=== PATIENT | male | born 1945 | race Caucasian/White ===

== ENCOUNTER 2018-06-22 00:53 | Inpatient (IN) ==
[2018-06-22] MEDS ORDERED: dilTIAZem Inj 125 MG in Sodium Chlor 0.9% Inj 100 ML IV.CONT PRN (01:08)
[2018-06-22 01:33] LABS: Baso % (Auto) 0.3 % (0.0-2.0); Eos % (Auto) 0.6 % (0.0-4.0); Hematocrit 36.5 % (39.0-51.0); Hemoglobin 12.4 gm/dL (13.0-17.0); Lymph # (Auto) 1.2 th/mm3 (1.0-4.8); Lymph % (Auto) 18.7 % (9.0-44.0); Mean Corpuscular HGB Conc 33.9 % (32.0-36.0); Mean Corpuscular Hemoglobin 29.1 pg (27.0-34.0); Mean Platelet Volume 7.7 fL (7.0-11.0); Mono # (Auto) 0.3 th/mm3 (0.0-0.9); Mono % (Auto) 4.6 % (0.0-8.0); Neut # (Auto) 4.7 th/mm3 (1.8-7.7); Neut % (Auto) 75.8 % (16.0-70.0); Platelet Count 157 th/mm3 (150-450); Red Blood Count 4.25 mil/mm3 (4.50-5.90); Red Cell Distribution Width 17.7 % (11.6-17.2); White Blood Count 6.2 th/mm3 (4.0-11.0)
[2018-06-22 02:12] LABS: Alanine Aminotransferase 41 U/L (12-78); Albumin 3.3 g/dL (3.4-5.0); Alkaline Phosphatase 95 U/L (45-117); Anion Gap 8 meq/L (5-15); Aspartate Aminotransferase 20 U/L (15-37); Blood Urea Nitrogen 18 mg/dL (7-18); Calcium 8.5 mg/dL (8.5-10.1); Carbon Dioxide 32.2 meq/L (21.0-32.0); Chloride 103 meq/L (98-107); Glomerular Filtration Rate Greater Than 89 mL/min (>89); Glucose,Random 158 mg/dL (74-106); Potassium 3.7 meq/L (3.5-5.1); Sodium 143 meq/L (136-145); Troponin I 0.02 ng/mL (0.02-0.05)
[2018-06-22 02:13] LABS: Creatine Kinase 36 U/L (39-308)
--- NOTE | 2018-06-22 02:51 | XR ---
EXAM DATE: 06/22/2018 2:43 AM EST AGE/SEX: 72 years / Male INDICATIONS: Short of breath. CLINICAL DATA: This is the patient's initial encounter. Patient reports that signs and symptoms have been present for 1 day and indicates a pain score of Nonresponsive. MEDICAL/SURGICAL HISTORY: Non-responsive. Non-responsive. COMPARISON: No prior exams available for comparison. FINDINGS: I don't have any priors. There is bilateral pleural and parenchymal scarring. There is blunting of neftali th costophrenic angles that I believe is primarily related to scarring. Small pleural effusions are n ot entirely excludable, especially on the right. No large effusions. No acute infiltrate demonstrated . No pneumothorax. Heart size within normal limits. CONCLUSION: Chronic appearing scarring and parenchymal interstitial changes. No definite acute process. Electronically signed by: Richard Keith MD Board Certified Radiologist 06/22/2018 2:50 AM EST
[2018-06-22] MEDS ORDERED: Enoxaparin Inj 80 MG/0.8 ML Syringe SQ SCH (05:00)
[2018-06-22] MEDS ORDERED: Dextrose 50% in Water 50 ML Vial IV.PUSH PRN (05:03)
[2018-06-22 05:33] LABS: Magnesium 1.9 mg/dL (1.5-2.5)
--- NOTE | 2018-06-22 05:54 | ED ---
HPI General Chief Complaint: Shortness of Breath/Dyspnea Stated Complaint: Chest pain Evac Time Seen by Provider: 06/22/18 01:05 History of Present Illness Patient is a 72-year-old male presents to the emergency depart with shortness of breath via EVAC. Patient provides very little history as he is very short of breath and in able to speak in sentences more than 1 or 2 words at a time. He is found to be in atrial fibrillation on arrival. Related Data Home Medications Medication Instructions Recorded Confirmed Lactobacillus acidophilus 1,000 mmu cells PO DAILY 06/22/18 06/22/18 aspirin [Aspir-81] 81 mg PO DAILY 06/22/18 06/22/18 atorvastatin 20 mg PO QPM 06/22/18 06/22/18 benzonatate 100 mg PO TID 06/22/18 06/22/18 fluticasone-vilanterol [Breo 1 inh INHALATION DAILY 06/22/18 06/22/18 Ellipta] ipratropium-albuterol 3 ml INHALATION Q4HR PRN 06/22/18 06/22/18 levofloxacin 750 mg PO DAILY 06/22/18 06/22/18 lorazepam [Ativan] 1 mg PO BID 06/22/18 06/22/18 metformin 500 mg PO DAILY 06/22/18 06/22/18 montelukast 10 mg PO QPM 06/22/18 06/22/18 morphine 10 mg PO Q4HR PRN 06/22/18 06/22/18 omega-3 acid ethyl esters [Lovaza] 2 cap PO BID 06/22/18 06/22/18 prednisone 10 mg PO DAILY 06/22/18 06/22/18 quetiapine [Seroquel] 300 mg PO HS 06/22/18 06/22/18 umeclidinium [Incruse Ellipta] 1 inh INHALATION DAILY 06/22/18 06/22/18 Allergies Allergy/AdvReac Type Severity Reaction Status Date / Time No Known Allergies Allergy Verified 06/22/18 01:08 Review of Systems ROS: all other systems reviewed are negative [facility] Medical History Medical History Anxiety (Acute) COPD (chronic obstructive pulmonary disease) (Acute) Social History Social History Substance History: No History of Abuse Second Hand Smoke Exposure: No Smoking Status: Former smoker Tobacco Type: Cigarettes How Often Do You Have a Drink Containing Alcohol: Never Recent Travel in [facility] within the Last 8 Weeks: No Recent Out of Country Travel within the Last 8 Weeks: No Immunization History Tetanus Immunization: Unsure Exam Narrative Exam Narrative: GENERAL: 72-year-old male moderate to severe distress secondary to shortness of breath. SKIN: Focused skin assessment warm/dry. HEAD: Atraumatic. Normocephalic. EYES: Pupils equal and round. No scleral icterus. No injection or drainage. ENT: No nasal bleeding or discharge. Mucous membranes pink and moist. NECK: Trachea midline. No JVD. CARDIOVASCULAR: Rapid irregular heart rate. No murmur appreciated. RESPIRATORY: No accessory muscle use. Clear to auscultation. Breath sounds equal bilaterally. GASTROINTESTINAL: Abdomen soft, non-tender, nondistended. Hepatic and splenic margins not palpable. MUSCULOSKELETAL: No obvious deformities. No clubbing. No cyanosis. No edema. Course Initial Documented Vital Signs Temperature 97.8 F 06/22/18 00:58 Pulse Rate 137 H 06/22/18 00:58 Respiratory Rate 34 H 06/22/18 00:58 Blood Pressure 144/63 H 06/22/18 00:58 Pulse Oximetry 97 06/22/18 00:58 Last Documented Vital Signs Temperature 97.8 F 06/22/18 00:58 Pulse Rate 104 H 06/22/18 06:21 Respiratory Rate 20 06/22/18 06:21 Blood Pressure 105/59 L 06/22/18 06:21 Pulse Oximetry 98 06/22/18 06:21 Medical Decision Making MDM Narrative Medical decision making narrative: Patient was seen and evaluated in the emergency department. He was given above dose of Cardizem and then placed on a drip. His heart rate is improved and bouncing between 90 and 110. His shortness of breath has completely resolved. Patient is admitted for further evaluation and treatment. Medical Screen Exam Complete: Yes Emergency Medical Condition: Yes Lab Data Result diagrams: 06/22/18 01:26 06/22/18 01:26 Lab Results 06/22/18 06/22/18 06/22/18 Range/Units 01:26 01:26 01:26 WBC 6.2 (4.0-11.0) th/mm3 RBC 4.25 L (4.50-5.90) mil/mm3 Hgb 12.4 L (13.0-17.0) gm/dL Hct 36.5 L (39.0-51.0) % MCV 86.0 (80.0-100.0) fL MCH 29.1 (27.0-34.0) pg MCHC 33.9 (32.0-36.0) % RDW 17.7 H (11.6-17.2) % Plt Count 157 (150-450) th/mm3 MPV 7.7 (7.0-11.0) fL Neut % (Auto) 75.8 H (16.0-70.0) % Lymph % (Auto) 18.7 (9.0-44.0) % [place] % (Auto) 4.6 (0.0-8.0) % Eos % (Auto) 0.6 (0.0-4.0) % Baso % (Auto) 0.3 (0.0-2.0) % Neut # (Auto) 4.7 (1.8-7.7) th/mm3 Lymph # (Auto) 1.2 (1.0-4.8) th/mm3 [place] # (Auto) 0.3 (0.0-0.9) th/mm3 Eos # (Auto) 0.0 (0.0-0.4) th/mm3 Baso # (Auto) 0.0 (0.0-0.2) th/mm3 WBC Differential . Differential Comment Auto diff final Sodium 143 (136-145) meq/L Potassium 3.7 (3.5-5.1) meq/L Chloride 103 (98-107) meq/L Carbon Dioxide 32.2 H (21.0-32.0) meq/L Anion Gap 8 (5-15) meq/L BUN 18 (7-18) mg/dL Creatinine 0.79 (0.60-1.30) mg/dL Estimated GFR Greater than 89 (>89) mL/min Random Glucose 158 H (74-106) mg/dL Calcium 8.5 (8.5-10.1) mg/dL Magnesium 1.9 (1.5-2.5) mg/dL Total Bilirubin 0.7 (0.2-1.0) mg/dL AST 20 (15-37) U/L ALT 41 (12-78) U/L Alkaline Phosphatase 95 (45-117) U/L Total Creatine Kinase 36 L (39-308) U/L Troponin I 0.02 (0.02-0.05) ng/mL B-Natriuretic Peptide 59 (0-100) pg/mL Total Protein 7.0 (6.4-8.2) g/dL Albumin 3.3 L (3.4-5.0) g/dL 06/22/18 Range/Units 01:26 WBC (4.0-11.0) th/mm3 RBC (4.50-5.90) mil/mm3 Hgb (13.0-17.0) gm/dL Hct (39.0-51.0) % MCV (80.0-100.0) fL MCH (27.0-34.0) pg MCHC (32.0-36.0) % RDW (11.6-17.2) % Plt Count (150-450) th/mm3 MPV (7.0-11.0) fL Neut % (Auto) (16.0-70.0) % Lymph % (Auto) (9.0-44.0) % [place] % (Auto) (0.0-8.0) % Eos % (Auto) (0.0-4.0) % Baso % (Auto) (0.0-2.0) % Neut # (Auto) (1.8-7.7) th/mm3 Lymph # (Auto) (1.0-4.8) th/mm3 [place] # (Auto) (0.0-0.9) th/mm3 Eos # (Auto) (0.0-0.4) th/mm3 Baso # (Auto) (0.0-0.2) th/mm3 WBC Differential Differential Comment Sodium (136-145) meq/L Potassium (3.5-5.1) meq/L Chloride (98-107) meq/L Carbon Dioxide (21.0-32.0) meq/L Anion Gap (5-15) meq/L BUN (7-18) mg/dL Creatinine (0.60-1.30) mg/dL Estimated GFR (>89) mL/min Random Glucose (74-106) mg/dL Calcium (8.5-10.1) mg/dL Magnesium Cancelled (1.5-2.5) mg/dL Total Bilirubin (0.2-1.0) mg/dL AST (15-37) U/L ALT (12-78) U/L Alkaline Phosphatase (45-117) U/L Total Creatine Kinase (39-308) U/L Troponin I (0.02-0.05) ng/mL B-Natriuretic Peptide (0-100) pg/mL Total Protein (6.4-8.2) g/dL Albumin (3.4-5.0) g/dL Imaging Data Radiologist's impression: Chest X-Ray 06/22/18 01:16 CONCLUSION: Chronic appearing scarring and parenchymal interstitial changes. No definite acute process. Discharge Plan Discharge Disposition Patient Disposition: ED Admit(ED Internal Use Only) Discharge Condition Condition: Stable Discharge Order Discharge Orders: ED Use Only Admit Order (Routine); Ordered 06/22/18 Ordered By: Kristie Randall Discharge Details Diagnosis: Atrial fibrillation Physicians Team ED Provider: Kristie Randall Primary Care Provider: UNKNOWN, Attending Provider: Ashvin Gutierrez Other Providers: Jimbo Hill Status ED Status: Left Department Discharge Information Discharge Date/Time: 06/22/18 06:50
--- NOTE | 2018-06-22 10:00 | MB ---
cc: Jimbo Hill MD DATE: 06/22/2018 REASON FOR CONSULTATION: Atrial fibrillation. HISTORY OF PRESENT ILLNESS: The patient is a 72-year-old white male with a history of diabetes, hyperlipidemia, COPD, who presented to the hospital with a 2-day history of increasing shortness of breath. He was found to be tachycardic. The patient denies palpitations, syncope, near syncope, although he has felt moderately lightheaded intermittently, particularly upon standing. He denies chest pain, pedal edema, paroxysmal nocturnal dyspnea. PAST MEDICAL HISTORY: 1. COPD. 2. Diabetes. 3. Hyperlipidemia. CARDIAC MEDICATIONS AT HOME: 1. Aspirin 81 mg daily. 2. Atorvastatin 20 mg at bedtime. ALLERGIES: NO KNOWN DRUG ALLERGIES. FAMILY HISTORY: Noncontributory. SOCIAL HISTORY: The patient is a former smoker. He denies alcohol abuse. REVIEW OF SYSTEMS: As in the history of present illness, otherwise negative or noncontributory. He also denies headache, abdominal pain, melena, dyspepsia, bright red blood per rectum. PHYSICAL EXAMINATION: VITAL SIGNS: Blood pressure 105/60 with a pulse of 104, respirations 20. GENERAL: He is a well-developed, thin white male, in no acute distress. NECK: Jugular venous pressure is normal. Carotid pulses are 2+ bilaterally and without bruits. CHEST: Reveals diminished breath sounds diffusely. CARDIAC: He has a mildly tachycardic, irregular rhythm without S3 or murmur. ABDOMEN: He has a soft, nontender abdomen. Bowel sounds are present. There is no definite hepatosplenomegaly. EXTREMITIES: Reveals no clubbing, cyanosis or edema. LABORATORY DATA: Includes potassium 3.7, BUN 18, creatinine 0.79. CK 36. Troponin 0.02. WBC 6.2, hemoglobin 12.4, platelets 157. Chest x-ray shows no acute disease. EKG shows possible multifocal atrial tachycardia, right bundle branch block. IMPRESSION: A 72-year-old white male with a history of COPD, diabetes, hyperlipidemia, admitted with increased shortness of breath. I have been asked to see the patient for atrial fibrillation. His EKG and current monitor are more suggestive of a multifocal atrial tachycardia, which could be precipitated by his underlying lung disease. His heart rates are currently only slightly to mildly elevated. There is no evidence for acute coronary syndrome or congestive heart failure. Echocardiogram is pending. RECOMMENDATIONS: 1. Oral Cardizem. 2. Continue his usual daily aspirin. 3. Check a 2-D echo to assess his left ventricular function. 4. Continue pulmonary therapy. 5. Recheck an EKG this morning. MD PETTY Lau/carina , 09:45 AM , 09:53 AM MTDPriyanka
[2018-06-22] MEDS: LORazepam 1 MG Tablet PO SCH ×2 (10:56→22:00)
[2018-06-22] MEDS: Insulin NovoLOG Aspart Correctional Sugar Inj SQ SCH ×4 (10:57→22:00)
--- NOTE | 2018-06-22 11:52 | P.HP ---
History of Present Illness Primary Care Physician: UNKNOWN Chief Complaint: Shortness of breath History of Present Illness: 72-year-old man with past medical history of diabetes type 2, COPD and a current resident of a local [facility] facility was brought to the hospital for evaluation of worsening symptoms of shortness of breath and lightheadedness neck. While in the ED, patient was found to have sustained heart rate of over 100 for which cardiology was consulted. Patient was also started on Cardizem drip. During my exam, patient denies any chest pain and complaints of cough production. Denies any GI bleed. Inpatient Certification: I certify that the inpatient services were ordered in accordance with Medicare regulations governing the order. This includes certification that hospital inpatient services are reasonable and necessary and in the case of services not specified as inpatient-only under 42 CFR 419.22(n), that they are appropriately provided as inpatient services in accordance to with the 2-midnight benchmark under 43 CFR 412.3(e) Estimated Total Length of Stay (Days): 2 Plans for Post Hospital Care: Not yet determined Review of Systems All other systems reviewed negative except as [facility] - History History Provided By: Medical Record, Roving Teller / EMT - Medical History Medical History: Medical History (Last Updated 06/22/18 @ 01:02 by Madina Gross) Anxiety COPD (chronic obstructive pulmonary disease) - Family History Family History: Family History (Last Updated 06/22/18 @ 11:51 by Ashvin Gutierrez MD) Other CAD (coronary artery disease) - Tobacco History Second Hand Smoke Exposure: No Tobacco Use In Past 30 Days: No Smoking Status: Former smoker Tobacco Type: Cigarettes - Alcohol History How Often Do You Have a Drink Containing Alcohol: Never - Substance Use History Substance History: No History of Abuse - Travel History Recent Travel in the [place] Within the Last 8 Weeks: No Recent Travel Out of the Country Within the Last 8 Weeks: No - Immunization History Tetanus Immunization: Unsure Medications and Allergies Active Medications: Active Medications Albuterol (Duoneb Neb (Prn)) 1 ampul INH Q4HR NEB PRN PRN Reason: WHEEZING Aspirin (Ecotrin) 81 mg PO DAILY MARCELINO Last Admin: 06/22/18 10:56 Dose: 81 mg Atorvastatin Calcium (Lipitor) 20 mg PO QPM MARCELINO Dextrose (D50w Vial) 50 ml IV.PUSH UNSCH PRN PRN Reason: PER HYPOGLYCEMIA PROTOCOL Diltiazem HCl (Cardizem) 30 mg PO QID MARCELINO Enoxaparin Sodium (Lovenox Inj) 70 mg SQ Q12H MARCELINO Last Admin: 06/22/18 05:38 Dose: 70 mg Glucagon (Glucagon Inj) 1 mg OTHER PRN PRN PRN Reason: for Hypoglycemia Protocol Insulin Aspart (Novolog Insulin Correctional Sugar Inj) 0 unit SQ ACHS AND 3AM MARCELINO; Protocol Last Admin: 06/22/18 10:57 Dose: Not Given Lorazepam (Ativan) 1 mg PO BID MARCELINO Last Admin: 06/22/18 10:56 Dose: 1 mg Sodium Chloride (Ns Flush) 2 ml IV.FLUSH PRN PRN PRN Reason: FLUSH AFTER USING IV ACCESS Sodium Chloride (Ns Flush) 2 ml IV.FLUSH BID MARCELINO Last Admin: 06/22/18 10:56 Dose: 2 ml Allergies Allergy/AdvReac Type Severity Reaction Status Date / Time No Known Allergies Allergy Verified 06/22/18 01:08 Home Medications Medication Instructions Recorded Confirmed Type Lactobacillus acidophilus 1,000 mmu cells PO DAILY 06/22/18 06/22/18 History aspirin [Aspir-81] 81 mg PO DAILY 06/22/18 06/22/18 History atorvastatin 20 mg PO QPM 06/22/18 06/22/18 History benzonatate 100 mg PO TID 06/22/18 06/22/18 History fluticasone-vilanterol [Breo 1 inh INHALATION DAILY 06/22/18 06/22/18 History Ellipta] ipratropium-albuterol 3 ml INHALATION Q4HR PRN 06/22/18 06/22/18 History levofloxacin 750 mg PO DAILY 06/22/18 06/22/18 History lorazepam [Ativan] 1 mg PO BID 06/22/18 06/22/18 History metformin 500 mg PO DAILY 06/22/18 06/22/18 History montelukast 10 mg PO QPM 06/22/18 06/22/18 History morphine 10 mg PO Q4HR PRN 06/22/18 06/22/18 History omega-3 acid ethyl esters [Lovaza] 2 cap PO BID 06/22/18 06/22/18 History prednisone 10 mg PO DAILY 06/22/18 06/22/18 History quetiapine [Seroquel] 300 mg PO HS 06/22/18 06/22/18 History umeclidinium [Incruse Ellipta] 1 inh INHALATION DAILY 06/22/18 06/22/18 History Exam Vital signs: Vital Signs 06/22/18 00:58 06/22/18 01:37 06/22/18 01:54 Temperature 97.8 F Pulse Rate 137 H 110 H 119 H Respiratory Rate 34 H 18 15 Blood Pressure 144/63 H 118/63 107/54 L Pulse Oximetry 97 99 98 06/22/18 03:00 06/22/18 04:00 06/22/18 05:04 Temperature Pulse Rate 100 H 103 H 100 H Respiratory Rate 20 20 20 Blood Pressure 108/54 L 114/56 L 101/64 Pulse Oximetry 98 97 92 L 06/22/18 06:21 Temperature Pulse Rate 104 H Respiratory Rate 20 Blood Pressure 105/59 L Pulse Oximetry 98 Intake & Output 06/21/18 06/22/18 06/22/18 18:59 06:59 18:59 Weight 72.575 kg Narrative: GENERAL: NAD SKIN: Warm and dry. HEAD: Atraumatic. Normocephalic. EYES: Pupils equal and round. No scleral icterus. No injection or drainage. ENT: No nasal bleeding or discharge. Mucous membranes pink and moist. NECK: Trachea midline. No JVD. CARDIOVASCULAR: Regular rate and rhythm. RESPIRATORY: No accessory muscle use. Decreased air entry bilaterally GASTROINTESTINAL: Abdomen soft, non-tender, nondistended. Hepatic and splenic margins not palpable. MUSCULOSKELETAL: Extremities without clubbing, cyanosis, or edema. No obvious deformities. NEUROLOGICAL: Awake and alert. No obvious cranial nerve deficits. Motor grossly within normal limits. Five out of 5 muscle strength in the arms and legs. Normal speech. PSYCHIATRIC: Appropriate mood and affect; insight and judgment normal. Results - Labs CBC & Chem 7: 06/22/18 01:26 06/22/18 01:26 Labs: Laboratory Results - last 24 hr 06/22/18 06/22/18 06/22/18 01:26 01:26 01:26 WBC 6.2 RBC 4.25 L Hgb 12.4 L Hct 36.5 L MCV 86.0 MCH 29.1 MCHC 33.9 RDW 17.7 H Plt Count 157 MPV 7.7 Neut % (Auto) 75.8 H Lymph % (Auto) 18.7 [place] % (Auto) 4.6 Eos % (Auto) 0.6 Baso % (Auto) 0.3 Neut # (Auto) 4.7 Lymph # (Auto) 1.2 [place] # (Auto) 0.3 Eos # (Auto) 0.0 Baso # (Auto) 0.0 WBC Differential . Differential Comment Auto diff final Sodium 143 Potassium 3.7 Chloride 103 Carbon Dioxide 32.2 H Anion Gap 8 BUN 18 Creatinine 0.79 Estimated GFR Greater than 89 Random Glucose 158 H Calcium 8.5 Magnesium 1.9 Total Bilirubin 0.7 AST 20 ALT 41 Alkaline Phosphatase 95 Total Creatine Kinase 36 L Troponin I 0.02 B-Natriuretic Peptide 59 Total Protein 7.0 Albumin 3.3 L 06/22/18 01:26 WBC RBC Hgb Hct MCV MCH MCHC RDW Plt Count MPV Neut % (Auto) Lymph % (Auto) [place] % (Auto) Eos % (Auto) Baso % (Auto) Neut # (Auto) Lymph # (Auto) [place] # (Auto) Eos # (Auto) Baso # (Auto) WBC Differential Differential Comment Sodium Potassium Chloride Carbon Dioxide Anion Gap BUN Creatinine Estimated GFR Random Glucose Calcium Magnesium Cancelled Total Bilirubin AST ALT Alkaline Phosphatase Total Creatine Kinase Troponin I B-Natriuretic Peptide Total Protein Albumin - Imaging Impressions Chest X-Ray 06/22/18 01:16 CONCLUSION: Chronic appearing scarring and parenchymal interstitial changes. No definite acute process. Caprini VTE Risk Assessment Caprini VTE Risk Assessment: Moderate/High Risk (score >= 2) Caprini Risk Assessment Model: Point Value = 1 Point Value = 2 Point Value = 3 Point Value = 5 Age 41-60 Minor surgery BMI > 25 kg/m2 Swollen legs Varicose veins or History of unexplained or recurrent spontaneous Oral contraceptives or hormone replacement Sepsis (< 1 month) Serious lung disease, including pneumonia (< 1 month) Abnormal pulmonary function Acute myocardial infarction Congestive heart failure (< 1 month) History of inflammatory bowel disease Medical patient at bed rest Age 61-74 Arthroscopic surgery Major open surgery (> 45 min) Laparoscopic surgery (> 45 min) Malignancy Confined to bed (> 72 hours) Immobilizing plaster cast Central venous access Age >= 75 History of VTE Family history of VTE Factor V Leiden Prothrombin [id number] Lupus anticoagulant Anticardiolipin antibodies Elevated serum homocysteine Heparin-induced thrombocytopenia Other congenital or acquired thrombophilia Stroke (< 1 month) Elective arthroplasty Hip, pelvis, or leg fracture Acute spinal cord injury (< 1 month) Prophylaxis Regimen: Total Risk Factor Score Risk Level Prophylaxis Regimen 0-1 Low Early ambulation 2 Moderate Order ONE of the following: *Sequential Compression Device (SCD) *Heparin 5000 units SQ BID 3-4 Higher Order ONE of the following medications: *Heparin 5000 units SQ TID *Enoxaparin/Lovenox 40 mg SQ daily (WT < 150 kg, CrCl > 30 mL/min) *Enoxaparin/Lovenox 30 mg SQ daily (WT < 150 kg, CrCl > 10-29 mL/min) *Enoxaparin/Lovenox 30 mg SQ BID (WT < 150 kg, CrCl > 30 mL/min) AND/OR *Sequential Compression Device (SCD) 5 or more Highest Order ONE of the following medications: *Heparin 5000 units SQ TID (Preferred with Epidurals) *Enoxaparin/Lovenox 40 mg SQ daily (WT < 150 kg, CrCl > 30 mL/min) *Enoxaparin/Lovenox 30 mg SQ daily (WT < 150 kg, CrCl > 10-29 mL/min) *Enoxaparin/Lovenox 30 mg SQ BID (WT < 150 kg, CrCl > 30 mL/min) AND *Sequential Compression Device (SCD) Assessment and Plan - Plan 72-year-old man with Multifocal atrial tachycardia Currently on p.o. Cardizem, Cardizem drip has been discontinued Appreciate input from cardiology Check 2D echo and continue aspirin Chest x-ray noted and reviewed by me without any acute disease History of COPD Resume prednisone, Levaquin, bronchodilator, long-acting beta agonist Maintain oxygen saturation above 92% Diabetes type 2 Hold oral hyperglycemic agents Start insulin sliding scale with fingerstick blood glucose monitoring Hyperlipidemia Continue with statin DVT prophylaxis: Lovenox PT consult to treat and eval
[2018-06-22] MEDS: guaiFENesin 600 MG ER Tablet PO SCH ×2 (12:56→22:00)
[2018-06-22] MEDS: dilTIAZem 30 MG Tablet PO SCH ×3 (12:56→22:00)
[2018-06-22] MEDS: Benzonatate 100 MG Capsule PO SCH ×2 (12:56→17:46)
--- NOTE | 2018-06-22 19:38 | ECG ---
Date Performed: 06/22/2018 Time Performed: 00:59:31 PTAGE: 72 years EKG: ATRIAL FIBRILLATION WITH RAPID VENTRICULAR RESPONSE RIGHT BUNDLE BRANCH BLOCK ABNORMAL ECG NO PREVIOUS TRACING DOCTOR: Parmjit Leblanc Interpretating Date/Time 06/22/2018 19:37:31
[2018-06-22] MEDS: Budesonide-Formoterol 160/4.5 MCG 6 GM Inhaler INH SCH (22:01)
--- NOTE | 2018-06-22 22:10 | ECG ---
Date Performed: 06/22/2018 Time Performed: 17:42:12 PTAGE: 72 years EKG: Sinus arrhythmia Right bundle branch block Inferior/lateral ST-T changes may be due to myoc ardial ischemia Low QRS voltages in precordial leads Abnormal ECG PREVIOUS TRACING : 06/22/2018 00.59 Compared to previous tracing, Afib with RVR is no longer p resent DOCTOR: Parmjit Leblanc Interpretating Date/Time 06/22/2018 22:08:33
[2018-06-22 23:51] LABS: ABG Base Excess 5.5 mmol/L (-2-2); ABG PCO2 43 mmHg (38-42); ABG PO2 93 mmHG (61-120)
--- NOTE | 2018-06-22 23:51 | XR ---
EXAM DATE: 06/22/2018 11:47 PM EST AGE/SEX: 72 years / Male INDICATIONS: Patient states he has been congested for several months prior to this hospitalization. CLINICAL DATA: This is the patient's subsequent encounter. Patient reports that signs and symptoms h ave been present for 2 months and indicates a pain score of 0/10. MEDICAL/SURGICAL HISTORY: Chronic obstructive pulmonary disease. None. [place] [facility] [place]. . FINDINGS: Pleural and parenchymal scarring again noted. No acute appearing pneumonia seen. No perceptible pleur al effusion. No pneumothorax. Heart size stable, within normal limits. CONCLUSION: No definite acute process. Bilateral pleural and parenchymal scarring again seen. Electronically signed by: Richard Keith MD Board Certified Radiologist 06/22/2018 11:50 PM EST
[2018-06-23] MEDS: Insulin NovoLOG Aspart Correctional Sugar Inj SQ SCH ×5 (03:42→21:54)
[2018-06-23 05:03] LABS: Hematocrit 29.9 % (39.0-51.0); Hemoglobin 10.2 gm/dL (13.0-17.0); Mean Corpuscular HGB Conc 33.9 % (32.0-36.0); Mean Corpuscular Hemoglobin 29.3 pg (27.0-34.0); Mean Corpuscular Volume 86.3 fL (80.0-100.0); Mean Platelet Volume 7.4 fL (7.0-11.0); Platelet Count 143 th/mm3 (150-450); Red Blood Count 3.47 mil/mm3 (4.50-5.90); Red Cell Distribution Width 17.2 % (11.6-17.2); White Blood Count 6.8 th/mm3 (4.0-11.0)
[2018-06-23 05:33] LABS: Anion Gap 6 meq/L (5-15); Blood Urea Nitrogen 12 mg/dL (7-18); Carbon Dioxide 32.9 meq/L (21.0-32.0); Chloride 102 meq/L (98-107); Glomerular Filtration Rate Greater Than 89 mL/min (>89); Glucose,Random 123 mg/dL (74-106); Potassium 3.1 meq/L (3.5-5.1); Sodium 141 meq/L (136-145)
[2018-06-23] MEDS: Budesonide-Formoterol 160/4.5 MCG 6 GM Inhaler INH SCH ×2 (08:32→21:46)
[2018-06-23] MEDS: Lactobacillus Acidophilus/L. Spores Tablet PO SCH (08:32)
[2018-06-23] MEDS: Enoxaparin Inj 40 MG/0.4 ML Syringe SQ SCH (08:32)
[2018-06-23] MEDS: Benzonatate 100 MG Capsule PO SCH ×3 (08:32→17:28)
[2018-06-23] MEDS: LORazepam 1 MG Tablet PO SCH ×2 (08:32→21:46)
[2018-06-23] MEDS: dilTIAZem 30 MG Tablet PO SCH ×2 (08:33→12:34)
[2018-06-23] MEDS: guaiFENesin 600 MG ER Tablet PO SCH ×2 (08:33→21:45)
[2018-06-23] MEDS ORDERED: predniSONE 20 MG Tablet PO SCH (09:00)
[2018-06-23] MEDS: levoFLOXacin 750 MG Tablet PO SCH (11:05)
--- NOTE | 2018-06-23 12:21 | P.PN ---
Subjective Interval history: Follow-up multifocal atrial tachycardia/COPD exacerbation June 23, 2018-patient seen and examined, reports significant shortness of breath, cough production but denies any chest pain. Afebrile. Patient was given Lasix IV x1 overnight Physical Exam Vital signs: Vital Signs 06/22/18 13:00 06/22/18 14:00 06/22/18 16:00 Temperature 98.2 F Pulse Rate 96 H 92 H 108 H Respiratory Rate 20 Blood Pressure 129/87 Pulse Oximetry 100 06/22/18 17:00 06/22/18 18:00 06/22/18 19:00 Temperature Pulse Rate 108 H 108 H 88 Respiratory Rate Blood Pressure Pulse Oximetry 06/22/18 20:00 06/22/18 20:58 06/22/18 21:00 Temperature 98.8 F Pulse Rate 94 H 92 H 94 H Respiratory Rate 28 H 18 Blood Pressure 146/54 H Pulse Oximetry 98 06/22/18 22:00 06/22/18 23:00 06/23/18 00:00 Temperature 99.1 F Pulse Rate 95 H 101 H 100 H Respiratory Rate 26 H Blood Pressure 133/78 Pulse Oximetry 97 06/23/18 01:00 06/23/18 02:00 06/23/18 03:00 Temperature Pulse Rate 92 H 96 H 106 H Respiratory Rate Blood Pressure Pulse Oximetry 06/23/18 04:00 06/23/18 05:00 06/23/18 06:00 Temperature Pulse Rate 89 106 H 107 H Respiratory Rate 24 Blood Pressure 135/67 Pulse Oximetry 98 06/23/18 09:05 Temperature Pulse Rate Respiratory Rate Blood Pressure Pulse Oximetry 96 Intake & Output 06/22/18 06/23/18 06/23/18 18:59 06:59 18:59 Intake Total 480 / 480 240 / 240 Output Total 975 / 975 Balance 480 / 480 -735 / -735 Intake: Oral 480 / 480 240 / 240 Output: Urine 975 / 975 Other: # Voids 3 Narrative: GENERAL: NAD SKIN: Warm and dry. HEAD: Atraumatic. Normocephalic. EYES: Pupils equal and round. No scleral icterus. No injection or drainage. ENT: No nasal bleeding or discharge. Mucous membranes pink and moist. NECK: Trachea midline. No JVD. CARDIOVASCULAR: Regular rate and rhythm. RESPIRATORY: No accessory muscle use. Decreased air entry bilaterally. Expiratory wheezes GASTROINTESTINAL: Abdomen soft, non-tender, nondistended. Hepatic and splenic margins not palpable. MUSCULOSKELETAL: Extremities without clubbing, cyanosis, or edema. No obvious deformities. NEUROLOGICAL: Awake and alert. No obvious cranial nerve deficits. Motor grossly within normal limits. Five out of 5 muscle strength in the arms and legs. Normal speech. PSYCHIATRIC: Appropriate mood and affect; insight and judgment normal. Results - Labs CBC & Chem 7: 06/23/18 04:47 06/23/18 04:47 Laboratory Results - last 24 hr 06/22/18 06/22/18 06/22/18 13:02 17:49 21:24 WBC RBC Hgb Hct MCV MCH MCHC RDW Plt Count MPV Puncture Site Patient Temperature O2 Saturation ABG pH ABG pCO2 ABG pO2 ABG HCO3 ABG O2 Content ABG Base Excess ABG Methemoglobin Shoaib Test Hemoglobin Carboxyhemoglobin O2 Delivery Device Liter Flow Critical Value Sodium Potassium Chloride Carbon Dioxide Anion Gap BUN Creatinine Estimated GFR POC Glucose 221 H 185 H 130 H Random Glucose Calcium 06/22/18 06/23/18 06/23/18 23:34 03:13 04:47 WBC 6.8 RBC 3.47 L Hgb 10.2 L D Hct 29.9 L MCV 86.3 MCH 29.3 MCHC 33.9 RDW 17.2 Plt Count 143 L MPV 7.4 Puncture Site Left radial Patient Temperature 98.6 O2 Saturation 95 ABG pH 7.45 H ABG pCO2 43 H ABG pO2 93 ABG HCO3 29 H ABG O2 Content 13.8 ABG Base Excess 5.5 H ABG Methemoglobin 1.5 Shoaib Test Present Hemoglobin 10.3 L Carboxyhemoglobin 1.4 O2 Delivery Device Nasal cannula Liter Flow 2.00 Critical Value No Sodium Potassium Chloride Carbon Dioxide Anion Gap BUN Creatinine Estimated GFR POC Glucose 159 H Random Glucose Calcium 06/23/18 06/23/18 06/23/18 04:47 08:23 11:09 WBC RBC Hgb Hct MCV MCH MCHC RDW Plt Count MPV Puncture Site Patient Temperature O2 Saturation ABG pH ABG pCO2 ABG pO2 ABG HCO3 ABG O2 Content ABG Base Excess ABG Methemoglobin Hsoaib Test Hemoglobin Carboxyhemoglobin O2 Delivery Device Liter Flow Critical Value Sodium 141 Potassium 3.1 L Chloride 102 Carbon Dioxide 32.9 H Anion Gap 6 BUN 12 Creatinine 0.66 Estimated GFR Greater than 89 POC Glucose 112 H 210 H Random Glucose 123 H Calcium 8.0 L - Imaging Impressions Chest X-Ray 06/22/18 00:00 CONCLUSION: No definite acute process. Bilateral pleural and parenchymal scarring again seen. - Procedures None Assessment and Plan - Plan 72-year-old man with Multifocal atrial tachycardia Currently on p.o. Cardizem, aspirin Appreciate input from cardiology 2D echo pending COPD exacerbation Will start Solu-Medrol 40 mg IV q. 8-hour Continue long-acting beta agonist, Levaquin, Mucinex and DuoNeb scheduled and as needed Incentive spirometry and Acapella at bedside Continue with aggressive pulmonary toilet Maintain oxygen saturation above 92% Diabetes type 2 Hold oral hyperglycemic agents Continue insulin sliding scale with fingerstick blood glucose monitoring Hyperlipidemia Continue with statin DVT prophylaxis: Lovenox PT to treat and eval
[2018-06-23] MEDS ORDERED: Potassium Chloride 25 MEQ Effervescent Tablet PO ONE (13:00)
--- NOTE | 2018-06-23 13:04 | P.PNCA ---
Subjective Interval history: Dyspnea minimally improved. No CP, palpitations, dizziness. Slept fairly well. Medications and Allergies Active Medications: Active Medications Albuterol (Duoneb Neb (Prn)) 1 ampul INH Q2HR NEB PRN PRN Reason: WHEEZING Albuterol (Duoneb Neb (Shari)) 1 ampul NEB Q6HR WHILE AWAKE NEB [facility] Aspirin (Ecotrin) 81 mg PO DAILY [facility] Last Admin: 06/23/18 08:33 Dose: 81 mg Atorvastatin Calcium (Lipitor) 20 mg PO QPM [facility] Last Admin: 06/22/18 17:59 Dose: 20 mg Benzonatate (Tessalon Perles) 100 mg PO TID [facility] Last Admin: 06/23/18 12:35 Dose: 100 mg Budesonide/Formoterol Fumarate (Symbicort 160/4.5 Mcg Inh) 2 puff INH BID [facility] Last Admin: 06/23/18 08:32 Dose: 2 puff Dextrose (D50w Vial) 50 ml IV.PUSH UNSCH PRN PRN Reason: PER HYPOGLYCEMIA PROTOCOL Diltiazem HCl (Cardizem) 30 mg PO QID [facility] Last Admin: 06/23/18 12:34 Dose: 30 mg Enoxaparin Sodium (Lovenox Inj) 40 mg SQ DAILY [facility] Last Admin: 06/23/18 08:32 Dose: 40 mg Fluticasone/Vilanterol (Breo Ellipta 200/25 Mcg Inh) 1 puff INH DAILY [facility] Last Admin: 06/23/18 08:32 Dose: 1 puff Glucagon (Glucagon Inj) 1 mg OTHER PRN PRN PRN Reason: for Hypoglycemia Protocol Guaifenesin (Mucinex Er) 600 mg PO BID [facility] Last Admin: 06/23/18 08:33 Dose: 600 mg Insulin Aspart (Novolog Insulin Correctional Sugar Inj) 0 unit SQ ACHS AND 3AM SHARI; Protocol Last Admin: 06/23/18 08:33 Dose: Not Given Lactobacillus Acidophilus (Lactinex) 1 tab PO DAILY [facility] Last Admin: 06/23/18 08:32 Dose: 1 tab Levofloxacin (Levaquin) 750 mg PO DAILY@1100 [facility] Last Admin: 06/23/18 11:05 Dose: 750 mg Lorazepam (Ativan) 1 mg PO BID [facility] Last Admin: 06/23/18 08:32 Dose: 1 mg Methylprednisolone Sodium Succinate (Solumedrol Inj) 40 mg IV.PUSH Q8HR [facility] Prednisone (Deltasone) 10 mg PO DAILY [facility] Last Admin: 06/23/18 08:32 Dose: 10 mg Sodium Chloride (Ns Flush) 2 ml IV.FLUSH PRN PRN PRN Reason: FLUSH AFTER USING IV ACCESS Sodium Chloride (Ns Flush) 2 ml IV.FLUSH BID [facility] Last Admin: 06/23/18 08:33 Dose: 2 ml Allergies Allergy/AdvReac Type Severity Reaction Status Date / Time No Known Allergies Allergy Verified 06/22/18 01:08 Home Medications Medication Instructions Recorded Confirmed Type Lactobacillus acidophilus 1,000 mmu cells PO DAILY 06/22/18 06/22/18 History aspirin [Aspir-81] 81 mg PO DAILY 06/22/18 06/22/18 History atorvastatin 20 mg PO QPM 06/22/18 06/22/18 History benzonatate 100 mg PO TID 06/22/18 06/22/18 History fluticasone-vilanterol [Breo 1 inh INHALATION DAILY 06/22/18 06/22/18 History Ellipta] ipratropium-albuterol 3 ml INHALATION Q4HR PRN 06/22/18 06/22/18 History levofloxacin 750 mg PO DAILY 06/22/18 06/22/18 History lorazepam [Ativan] 1 mg PO BID 06/22/18 06/22/18 History metformin 500 mg PO DAILY 06/22/18 06/22/18 History montelukast 10 mg PO QPM 06/22/18 06/22/18 History morphine 10 mg PO Q4HR PRN 06/22/18 06/22/18 History omega-3 acid ethyl esters [Lovaza] 2 cap PO BID 06/22/18 06/22/18 History prednisone 10 mg PO DAILY 06/22/18 06/22/18 History quetiapine [Seroquel] 300 mg PO HS 06/22/18 06/22/18 History umeclidinium [Incruse Ellipta] 1 inh INHALATION DAILY 06/22/18 06/22/18 History Physical Exam Vital signs: Vital Signs 06/22/18 14:00 06/22/18 16:00 06/22/18 17:00 Temperature 98.2 F Pulse Rate 92 H 108 H 108 H Respiratory Rate 20 Blood Pressure 129/87 Pulse Oximetry 100 06/22/18 18:00 06/22/18 19:00 06/22/18 20:00 Temperature 98.8 F Pulse Rate 108 H 88 94 H Respiratory Rate 28 H Blood Pressure 146/54 H Pulse Oximetry 98 06/22/18 20:58 06/22/18 21:00 06/22/18 22:00 Temperature Pulse Rate 92 H 94 H 95 H Respiratory Rate 18 Blood Pressure Pulse Oximetry 06/22/18 23:00 06/23/18 00:00 06/23/18 01:00 Temperature 99.1 F Pulse Rate 101 H 100 H 92 H Respiratory Rate 26 H Blood Pressure 133/78 Pulse Oximetry 97 06/23/18 02:00 06/23/18 03:00 06/23/18 04:00 Temperature Pulse Rate 96 H 106 H 89 Respiratory Rate 24 Blood Pressure 135/67 Pulse Oximetry 98 06/23/18 05:00 06/23/18 06:00 06/23/18 07:00 Temperature Pulse Rate 106 H 107 H 104 H Respiratory Rate Blood Pressure Pulse Oximetry 06/23/18 08:00 06/23/18 09:05 06/23/18 11:00 Temperature 98.2 F Pulse Rate 100 H 118 H Respiratory Rate 24 Blood Pressure 135/65 Pulse Oximetry 98 96 06/23/18 12:00 Temperature 98.3 F Pulse Rate 96 H Respiratory Rate 22 Blood Pressure 128/57 L Pulse Oximetry 98 Intake & Output 06/22/18 06/23/18 06/23/18 18:59 06:59 18:59 Intake Total 480 / 480 240 / 240 Output Total 975 / 975 Balance 480 / 480 -735 / -735 Intake: Oral 480 / 480 240 / 240 Output: Urine 975 / 975 Other: # Voids 3 - Constitutional no acute distress - Routine Neck Exam Absent: JVD - Routine Respiratory Exam Present: decreased breath sounds, rhonchi - Routine Cardiovascular Exam Present: S1, S2, irregularly irregular. Absent: murmur, gallop - Routine Abdominal Exam Present: soft, normoactive bowel sounds. Absent: tenderness, organomegaly - Routine Extremities Exam Absent: cyanosis, clubbing, edema Results 06/23/18 04:47 06/23/18 04:47 Cardiac Enzymes 06/22/18 06/22/18 Range/Units 01:26 01:26 AST 20 (15-37) U/L Troponin I 0.02 (0.02-0.05) ng/mL B-Natriuretic Peptide 59 (0-100) pg/mL Coagulation 06/22/18 Range/Units 01:26 B-Natriuretic Peptide 59 (0-100) pg/mL CBC 06/22/18 06/23/18 Range/Units 01:26 04:47 WBC 6.2 6.8 (4.0-11.0) th/mm3 RBC 4.25 L 3.47 L (4.50-5.90) mil/mm3 Hgb 12.4 L 10.2 L D (13.0-17.0) gm/dL Hct 36.5 L 29.9 L (39.0-51.0) % Plt Count 157 143 L (150-450) th/mm3 Neut # (Auto) 4.7 (1.8-7.7) th/mm3 Lymph # (Auto) 1.2 (1.0-4.8) th/mm3 [place] # (Auto) 0.3 (0.0-0.9) th/mm3 Eos # (Auto) 0.0 (0.0-0.4) th/mm3 Baso # (Auto) 0.0 (0.0-0.2) th/mm3 Comprehensive Metabolic Panel 06/22/18 06/23/18 Range/Units 01:26 04:47 Sodium 143 141 (136-145) meq/L Potassium 3.7 3.1 L (3.5-5.1) meq/L Chloride 103 102 (98-107) meq/L Carbon Dioxide 32.2 H 32.9 H (21.0-32.0) meq/L BUN 18 12 (7-18) mg/dL Creatinine 0.79 0.66 (0.60-1.30) mg/dL Calcium 8.5 8.0 L (8.5-10.1) mg/dL AST 20 (15-37) U/L ALT 41 (12-78) U/L Alkaline Phosphatase 95 (45-117) U/L Total Protein 7.0 (6.4-8.2) g/dL Albumin 3.3 L (3.4-5.0) g/dL Intake and Output 06/22/18 06/23/18 06/23/18 22:59 06:59 14:59 Intake Total 480 / 480 240 / 240 Output Total 975 / 975 Balance 480 / 480 -735 / -735 Intake: Oral 480 / 480 240 / 240 Output: Urine 975 / 975 Other: # Voids 3 - Imaging and Cardiology Imaging: Impressions Chest X-Ray 06/22/18 00:00 CONCLUSION: No definite acute process. Bilateral pleural and parenchymal scarring again seen. Chest X-Ray 06/22/18 01:16 CONCLUSION: Chronic appearing scarring and parenchymal interstitial changes. No definite acute process. Assessment and Plan - Assessment (1) Multifocal atrial tachycardia Code(s): I47.1 - Supraventricular tachycardia Status: Acute Plan: HR's fluctuating, mostly mildly elevated. Remains in a wandering atrial pacemaker/multifocal atrial tachycardia. Echo pending. Recommend increase diltiazem dosing. - Plan Code Status: full Discussed Condition With: patient
[2018-06-23] MEDS: MethylPREDNISolone Sod Succinate Inj 40 MG/ML Vial IV.PUSH SCH ×2 (14:18→21:46)
[2018-06-23] MEDS: dilTIAZem 60 MG Tablet PO SCH ×2 (17:28→21:45)
[2018-06-24] MEDS: Insulin NovoLOG Aspart Correctional Sugar Inj SQ SCH ×5 (03:56→20:41)
[2018-06-24] MEDS: MethylPREDNISolone Sod Succinate Inj 40 MG/ML Vial IV.PUSH SCH ×3 (06:19→21:08)
[2018-06-24 08:40] LABS: Baso % (Auto) 0.1 % (0.0-2.0); Hematocrit 33.2 % (39.0-51.0); Hemoglobin 11.3 gm/dL (13.0-17.0); Lymph # (Auto) 0.6 th/mm3 (1.0-4.8); Lymph % (Auto) 10.5 % (9.0-44.0); Mean Corpuscular HGB Conc 34.1 % (32.0-36.0); Mean Corpuscular Hemoglobin 29.4 pg (27.0-34.0); Mean Corpuscular Volume 86.2 fL (80.0-100.0); Mean Platelet Volume 7.8 fL (7.0-11.0); Mono # (Auto) 0.1 th/mm3 (0.0-0.9); Mono % (Auto) 1.5 % (0.0-8.0); Neut # (Auto) 4.7 th/mm3 (1.8-7.7); Neut % (Auto) 87.9 % (16.0-70.0); Platelet Count 163 th/mm3 (150-450); Red Blood Count 3.85 mil/mm3 (4.50-5.90); Red Cell Distribution Width 17.2 % (11.6-17.2); White Blood Count 5.4 th/mm3 (4.0-11.0)
[2018-06-24] MEDS: Enoxaparin Inj 40 MG/0.4 ML Syringe SQ SCH (09:09)
[2018-06-24] MEDS: Lactobacillus Acidophilus/L. Spores Tablet PO SCH (09:09)
[2018-06-24] MEDS: guaiFENesin 600 MG ER Tablet PO SCH ×2 (09:09→20:33)
[2018-06-24] MEDS: dilTIAZem 60 MG Tablet PO SCH ×4 (09:09→20:33)
[2018-06-24] MEDS: LORazepam 1 MG Tablet PO SCH ×2 (09:09→20:33)
[2018-06-24 09:10] LABS: Alanine Aminotransferase 21 U/L (12-78); Albumin 2.9 g/dL (3.4-5.0); Anion Gap 8 meq/L (5-15); Aspartate Aminotransferase 9 U/L (15-37); Blood Urea Nitrogen 20 mg/dL (7-18); Calcium 8.8 mg/dL (8.5-10.1); Carbon Dioxide 30.3 meq/L (21.0-32.0); Chloride 103 meq/L (98-107); Glomerular Filtration Rate 82 mL/min (>89); Glucose,Random 190 mg/dL (74-106); Magnesium 1.9 mg/dL (1.5-2.5); Potassium 3.9 meq/L (3.5-5.1); Sodium 141 meq/L (136-145)
[2018-06-24] MEDS: Benzonatate 100 MG Capsule PO SCH ×3 (09:10→17:00)
[2018-06-24] MEDS: Budesonide-Formoterol 160/4.5 MCG 6 GM Inhaler INH SCH ×2 (09:10→20:39)
[2018-06-24 09:13] LABS: Alkaline Phosphatase 67 U/L (45-117); Total Protein 6.4 g/dL (6.4-8.2)
[2018-06-24] MEDS: UMECLIDINIUM INH SCH (09:14)
--- NOTE | 2018-06-24 10:22 | P.PNCA ---
Subjective Interval history: Dyspnea slowly improving. No PND, dizziness, palpitations, CP. Medications and Allergies Active Medications: Active Medications Albuterol (Duoneb Neb (Prn)) 1 ampul INH Q2HR NEB PRN PRN Reason: WHEEZING Albuterol (Duoneb Neb (Shari)) 1 ampul NEB Q6HR WHILE AWAKE NEB [facility] Last Admin: 06/24/18 07:53 Dose: 1 ampul Aspirin (Ecotrin) 81 mg PO DAILY [facility] Last Admin: 06/24/18 09:09 Dose: 81 mg Atorvastatin Calcium (Lipitor) 20 mg PO QPM [facility] Last Admin: 06/23/18 17:31 Dose: 20 mg Benzonatate (Tessalon Perles) 100 mg PO TID [facility] Last Admin: 06/24/18 09:10 Dose: 100 mg Budesonide/Formoterol Fumarate (Symbicort 160/4.5 Mcg Inh) 2 puff INH BID [facility] Last Admin: 06/24/18 09:10 Dose: 2 puff Dextrose (D50w Vial) 50 ml IV.PUSH UNSCH PRN PRN Reason: PER HYPOGLYCEMIA PROTOCOL Diltiazem HCl (Cardizem) 60 mg PO QID [facility] Last Admin: 06/24/18 09:09 Dose: 60 mg Enoxaparin Sodium (Lovenox Inj) 40 mg SQ DAILY [facility] Last Admin: 06/24/18 09:09 Dose: 40 mg Fluticasone/Vilanterol (Breo Ellipta 200/25 Mcg Inh) 1 puff INH DAILY [facility] Last Admin: 06/24/18 09:10 Dose: 1 puff Glucagon (Glucagon Inj) 1 mg OTHER PRN PRN PRN Reason: for Hypoglycemia Protocol Guaifenesin (Mucinex Er) 600 mg PO BID [facility] Last Admin: 06/24/18 09:09 Dose: 600 mg Insulin Aspart (Novolog Insulin Correctional Sugar Inj) 0 unit SQ ACHS AND 3AM SHARI; Protocol Last Admin: 06/24/18 09:09 Dose: 1 unit Lactobacillus Acidophilus (Lactinex) 1 tab PO DAILY [facility] Last Admin: 06/24/18 09:09 Dose: 1 tab Levofloxacin (Levaquin) 750 mg PO DAILY@1100 [facility] Last Admin: 06/23/18 11:05 Dose: 750 mg Lorazepam (Ativan) 1 mg PO BID [facility] Last Admin: 06/24/18 09:09 Dose: 1 mg Methylprednisolone Sodium Succinate (Solumedrol Inj) 40 mg IV.PUSH Q8HR [facility] Last Admin: 06/24/18 06:19 Dose: 40 mg Patient Own Medication:( Umeclidinium [ Incruse Ellipta] 1 Inh) 0 each INH DAILY [facility] Last Admin: 06/24/18 09:14 Dose: Not Given Prednisone (Deltasone) 10 mg PO DAILY [facility] Last Admin: 06/23/18 08:32 Dose: 10 mg Quetiapine Fumarate (Seroquel) 300 mg PO HS [facility] Last Admin: 06/23/18 21:45 Dose: 300 mg Sodium Chloride (Ns Flush) 2 ml IV.FLUSH PRN PRN PRN Reason: FLUSH AFTER USING IV ACCESS Sodium Chloride (Ns Flush) 2 ml IV.FLUSH BID [facility] Last Admin: 06/24/18 09:10 Dose: 2 ml Allergies Allergy/AdvReac Type Severity Reaction Status Date / Time No Known Allergies Allergy Verified 06/22/18 01:08 Home Medications Medication Instructions Recorded Confirmed Type Lactobacillus acidophilus 1,000 mmu cells PO DAILY 06/22/18 06/22/18 History aspirin [Aspir-81] 81 mg PO DAILY 06/22/18 06/22/18 History atorvastatin 20 mg PO QPM 06/22/18 06/22/18 History benzonatate 100 mg PO TID 06/22/18 06/22/18 History fluticasone-vilanterol [Breo 1 inh INHALATION DAILY 06/22/18 06/22/18 History Ellipta] ipratropium-albuterol 3 ml INHALATION Q4HR PRN 06/22/18 06/22/18 History levofloxacin 750 mg PO DAILY 06/22/18 06/22/18 History lorazepam [Ativan] 1 mg PO BID 06/22/18 06/22/18 History metformin 500 mg PO DAILY 06/22/18 06/22/18 History montelukast 10 mg PO QPM 06/22/18 06/22/18 History morphine 10 mg PO Q4HR PRN 06/22/18 06/22/18 History omega-3 acid ethyl esters [Lovaza] 2 cap PO BID 06/22/18 06/22/18 History prednisone 10 mg PO DAILY 06/22/18 06/22/18 History quetiapine [Seroquel] 300 mg PO HS 06/22/18 06/22/18 History umeclidinium [Incruse Ellipta] 1 inh INHALATION DAILY 06/22/18 06/22/18 History Physical Exam Vital signs: Vital Signs 06/23/18 11:00 06/23/18 12:00 06/23/18 14:00 Temperature 98.3 F Pulse Rate 118 H 96 H 86 Respiratory Rate 22 Blood Pressure 128/57 L Pulse Oximetry 98 06/23/18 15:00 06/23/18 16:00 06/23/18 17:00 Temperature 98.5 F Pulse Rate 82 88 82 Respiratory Rate 16 Blood Pressure 126/87 Pulse Oximetry 98 06/23/18 18:00 06/23/18 19:00 06/23/18 20:00 Temperature 97.8 F Pulse Rate 80 93 H 96 H Respiratory Rate 24 Blood Pressure 117/52 L Pulse Oximetry 99 06/23/18 20:27 06/23/18 21:00 06/23/18 22:00 Temperature Pulse Rate 89 62 88 Respiratory Rate 18 Blood Pressure Pulse Oximetry 99 06/23/18 23:00 06/24/18 00:00 06/24/18 01:00 Temperature Pulse Rate 93 H 86 86 Respiratory Rate 20 Blood Pressure 121/69 Pulse Oximetry 98 06/24/18 02:00 06/24/18 03:00 06/24/18 04:00 Temperature Pulse Rate 86 95 H 75 Respiratory Rate 20 Blood Pressure 116/65 Pulse Oximetry 99 06/24/18 05:00 06/24/18 06:00 06/24/18 07:00 Temperature Pulse Rate 89 82 89 Respiratory Rate Blood Pressure Pulse Oximetry 06/24/18 07:57 06/24/18 08:00 06/24/18 08:10 Temperature 98.1 F Pulse Rate 50 L 94 H 106 H Respiratory Rate 18 18 Blood Pressure 150/75 H Pulse Oximetry 97 06/24/18 09:00 Temperature Pulse Rate 100 H Respiratory Rate Blood Pressure Pulse Oximetry Intake & Output 06/23/18 06/24/18 06/24/18 18:59 06:59 18:59 Intake Total 480 / 480 240 / 240 Output Total 600 / 600 200 / 200 Balance -120 / -120 40 / 40 Intake: Oral 480 / 480 240 / 240 Output: Urine 600 / 600 200 / 200 - Constitutional no acute distress - Routine Neck Exam Absent: JVD - Routine Respiratory Exam Present: decreased breath sounds. Absent: wheezes - Routine Cardiovascular Exam Present: S1, S2, irregular rhythm. Absent: murmur, gallop - Routine Abdominal Exam Present: soft, normoactive bowel sounds. Absent: tenderness, organomegaly - Routine Extremities Exam Absent: cyanosis, clubbing, edema Results 06/24/18 08:24 06/24/18 08:24 Cardiac Enzymes 06/24/18 Range/Units 08:24 AST 9 L (15-37) U/L CBC 06/23/18 06/24/18 Range/Units 04:47 08:24 WBC 6.8 5.4 (4.0-11.0) th/mm3 RBC 3.47 L 3.85 L (4.50-5.90) mil/mm3 Hgb 10.2 L D 11.3 L (13.0-17.0) gm/dL Hct 29.9 L 33.2 L (39.0-51.0) % Plt Count 143 L 163 (150-450) th/mm3 Neut # (Auto) 4.7 (1.8-7.7) th/mm3 Lymph # (Auto) 0.6 L (1.0-4.8) th/mm3 [place] # (Auto) 0.1 (0.0-0.9) th/mm3 Eos # (Auto) 0.0 (0.0-0.4) th/mm3 Baso # (Auto) 0.0 (0.0-0.2) th/mm3 Comprehensive Metabolic Panel 06/23/18 06/24/18 Range/Units 04:47 08:24 Sodium 141 141 (136-145) meq/L Potassium 3.1 L 3.9 D (3.5-5.1) meq/L Chloride 102 103 (98-107) meq/L Carbon Dioxide 32.9 H 30.3 (21.0-32.0) meq/L BUN 12 20 H (7-18) mg/dL Creatinine 0.66 0.91 (0.60-1.30) mg/dL Calcium 8.0 L 8.8 D (8.5-10.1) mg/dL AST 9 L (15-37) U/L ALT 21 (12-78) U/L Alkaline Phosphatase 67 (45-117) U/L Total Protein 6.4 D (6.4-8.2) g/dL Albumin 2.9 L (3.4-5.0) g/dL Intake and Output 06/23/18 06/24/18 06/24/18 22:59 06:59 14:59 Intake Total 480 / 480 240 / 240 Output Total 600 / 600 200 / 200 Balance -120 / -120 40 / 40 Intake: Oral 480 / 480 240 / 240 Output: Urine 600 / 600 200 / 200 - Imaging and Cardiology Imaging: Impressions Chest X-Ray 06/22/18 00:00 CONCLUSION: No definite acute process. Bilateral pleural and parenchymal scarring again seen. Assessment and Plan - Assessment (1) Multifocal atrial tachycardia Code(s): I47.1 - Supraventricular tachycardia Status: Acute Plan: HR's fluctuating, mostly normal. Remains in a wandering atrial pacemaker/ multifocal atrial tachycardia, though occasional periods where rhythm suggestive of NSR. Echo pending. Recommend continue same. Dr. Michele to see patient PRN tomorrow. - Plan Code Status: full code Discussed Condition With: patient
[2018-06-24] MEDS: levoFLOXacin 750 MG Tablet PO SCH (12:28)
--- NOTE | 2018-06-24 12:51 | ECHRPT ---
Indication: A FIB FLUTTER CONCLUSIONS Normal left ventricular size. Wall thickness is normal. The left ventricular systolic function is mildly reduced with an estimated ejection fraction in the range of 50%. There was limited left ventricular wall motion assessment due to poor endocardial visualization. The pulmonary valve is not well visualized. A small left sided pleural effusion is noted. BP: / HR: Rhythm: MEASUREMENTS (Male / Female) Normal Values Technical Quality:Technically difficult study 2D ECHO LV Diastolic Diameter PLAX 5.0 cm 4.2 - 5.9 / 3.9 - 5.3 cm LV Systolic Diameter PLAX 3.7 cm IVS Diastolic Thickness 0.9 cm 0.6 - 1.0 / 0.6 - 0.9 cm LVPW Diastolic Thickness 1.0 cm 0.6 - 1.0 / 0.6 - 0.9 cm LV Relative Wall Thickness 0.4 DOPPLER Mitral E Point Velocity 74.6 cm/s Mitral A Point Velocity 105.0 cm/s Mitral E to A Ratio 0.7 TR Peak Velocity 187.0 cm/s TR Peak Gradient 14.0 mmHg FINDINGS LEFT VENTRICLE Normal left ventricular size. Wall thickness is normal. The left ventricular systolic function is mildly reduced with an estimated ejection fraction in the range of 50%. There was limited left ventricular wall motion assessment due to poor endocardial visualization. RIGHT VENTRICLE Normal right ventricular size and systolic function. LEFT ATRIUM The left atrial size is normal. RIGHT ATRIUM The right atrial size is normal. ATRIAL SEPTUM Normal atrial septal thickness without atrial level shunting by limited color doppler interrogation. AORTA The aortic root and proximal ascending aorta are normal in size on limited imaging. MITRAL VALVE Structurally normal mitral valve. No mitral valve stenosis or regurgitation. AORTIC VALVE Trileaflet aortic valve. No aortic valve stenosis or regurgitation. TRICUSPID VALVE Structurally normal tricuspid valve. No tricuspid valve stenosis or regurgitation. PULMONARY VALVE The pulmonary valve is not well visualized. VESSELS The inferior vena cava is normal in size. PERICARDIUM A small left sided pleural effusion is noted. Aaron Nix MD, FACC (Electronically Signed) Final Date:24 June 2018 12:50
--- NOTE | 2018-06-24 17:11 | P.PNIM ---
Subjective Interval history: still short of breath with exertion. Physical Exam Vital signs: Last Vital Signs Temp 97.9 F 06/24/18 15:23 Pulse 88 06/24/18 15:23 Resp 18 06/24/18 15:23 BP 116/60 06/24/18 15:23 Pulse Ox 98 06/24/18 15:23 Intake & Output 06/22/18 06/23/18 06/24/18 06/25/18 06:59 06:59 06:59 06:59 Intake Total 720 / 720 720 / 720 Output Total 975 / 975 800 / 800 Balance -255 / -255 -80 / -80 Weight 72.575 kg Narrative: GENERAL: elderly man,not in distress HEENT:not pale,anicteric. CARDIOVASCULAR: Regular rate and rhythm without murmurs, gallops, or rubs. RESPIRATORY: diminished air entry bilaterally with expiratory wheezes. no rales GASTROINTESTINAL: Abdomen soft, non-tender, nondistended. Normal active bowel sounds MUSCULOSKELETAL: Extremities without clubbing, cyanosis, or edema. NEURO: Alert & Oriented x4 to person, place, time, situation. Moves all ext x4 Results Labs CBC & Chem 7: 06/24/18 08:24 06/24/18 08:24 Procedures Procedures: None Assessment and Plan (1) Multifocal atrial tachycardia: Code(s): I47.1 - Supraventricular tachycardia Status: Acute Plan 72-year-old man with Multifocal atrial tachycardia -on Cardizem 60mg qid, aspirin. ECHO-LVEF 50% Appreciate input from cardiology COPD exacerbation- Still symptomatic, continue Solu-Medrol 40 mg IV q. 8-hour, long-acting beta agonist, Levaquin, Mucinex and DuoNeb scheduled and as needed -Incentive spirometry and Acapella at bedside -aggressive pulmonary toilet -Maintain oxygen saturation above 92% Diabetes type 2-blood glucose uncontrolled, worsened due to steroids. start on Levemir 10 units bid for now. -Hold oral hyperglycemic agents--can resume on discharge -Continue insulin sliding scale with fingerstick blood glucose monitoring. Hyperlipidemia-onstatin DVT prophylaxis: Lovenox PT to treat and eval
[2018-06-24] MEDS: Insulin Detemir Inj 1,000 UNIT/10 ML Vial SQ SCH (21:10)
[2018-06-25] MEDS: Insulin NovoLOG Aspart Correctional Sugar Inj SQ SCH ×4 (04:15→16:55)
[2018-06-25] MEDS: MethylPREDNISolone Sod Succinate Inj 40 MG/ML Vial IV.PUSH SCH ×3 (05:29→21:01)
[2018-06-25] MEDS: Insulin Detemir Inj 1,000 UNIT/10 ML Vial SQ SCH ×2 (08:20→20:54)
[2018-06-25] MEDS: guaiFENesin 600 MG ER Tablet PO SCH ×2 (08:21→20:53)
[2018-06-25] MEDS: Lactobacillus Acidophilus/L. Spores Tablet PO SCH (08:21)
[2018-06-25] MEDS: Benzonatate 100 MG Capsule PO SCH ×3 (08:21→18:08)
[2018-06-25] MEDS: dilTIAZem 60 MG Tablet PO SCH ×4 (08:21→20:53)
[2018-06-25] MEDS: Enoxaparin Inj 40 MG/0.4 ML Syringe SQ SCH (08:21)
[2018-06-25] MEDS: LORazepam 1 MG Tablet PO SCH ×2 (08:21→20:52)
[2018-06-25] MEDS: UMECLIDINIUM INH SCH (08:22)
[2018-06-25] MEDS: levoFLOXacin 750 MG Tablet PO SCH (12:12)
--- NOTE | 2018-06-25 16:37 | P.PNIM ---
Subjective Interval history: patient reports some improvement in breathing today. Physical Exam Vital signs: Last Vital Signs Temp 97 F L 06/25/18 15:18 Pulse 91 H 06/25/18 15:48 Resp 18 06/25/18 15:18 BP 128/63 06/25/18 15:18 Pulse Ox 98 06/25/18 15:18 Intake & Output 06/23/18 06/24/18 06/25/18 06/26/18 06:59 06:59 06:59 06:59 Intake Total 720 / 720 720 / 720 1250 / 1250 Output Total 975 / 975 800 / 800 750 / 750 Balance -255 / -255 -80 / -80 500 / 500 Weight 73 kg Narrative: GENERAL: elderly man,not in distress HEENT:not pale,anicteric. CARDIOVASCULAR: Regular rate and rhythm without murmurs, gallops, or rubs. RESPIRATORY: diminished air entry bilaterally,scattered expiratory wheezes. no rales GASTROINTESTINAL: Abdomen soft, non-tender, nondistended. Normal active bowel sounds MUSCULOSKELETAL: Extremities without clubbing, cyanosis, or edema. NEURO: Alert & Oriented x4 to person, place, time, situation. Moves all ext x4 Results Labs CBC & Chem 7: 06/24/18 08:24 06/24/18 08:24 Procedures Procedures: None Assessment and Plan (1) Multifocal atrial tachycardia: Code(s): I47.1 - Supraventricular tachycardia Status: Acute Plan 72-year-old man with Multifocal atrial tachycardia- still getting intermittent episodes of tachycardia. -on Cardizem 60mg qid, aspirin. ECHO-LVEF 50% Appreciate input from cardiology COPD exacerbation- Still symptomatic, continue Solu-Medrol 40 mg IV q. 8-hour, long-acting beta agonist, Levaquin, Mucinex and DuoNeb scheduled and as needed -Incentive spirometry and Acapella at bedside -aggressive pulmonary toilet -Maintain oxygen saturation above 92% Diabetes type 2-blood glucose uncontrolled, worsened due to steroids. started Levemir for better glucose control,increased to 14 units bid. -Hold oral hyperglycemic agents--can resume on discharge -Continue insulin sliding scale with fingerstick blood glucose monitoring. Hyperlipidemia-cont on statin DVT prophylaxis: Lovenox PT to treat and eval
[2018-06-26] MEDS: Insulin NovoLOG Aspart Correctional Sugar Inj SQ SCH ×6 (04:53→21:04)
[2018-06-26] MEDS: MethylPREDNISolone Sod Succinate Inj 40 MG/ML Vial IV.PUSH SCH ×2 (05:18→21:02)
[2018-06-26] MEDS: Enoxaparin Inj 40 MG/0.4 ML Syringe SQ SCH (08:42)
[2018-06-26] MEDS: Benzonatate 100 MG Capsule PO SCH ×2 (08:42→12:02)
[2018-06-26] MEDS: Lactobacillus Acidophilus/L. Spores Tablet PO SCH (08:42)
[2018-06-26] MEDS: LORazepam 1 MG Tablet PO SCH (08:43)
[2018-06-26] MEDS: guaiFENesin 600 MG ER Tablet PO SCH ×2 (08:43→20:59)
[2018-06-26] MEDS: dilTIAZem 60 MG Tablet PO SCH (08:43)
[2018-06-26] MEDS: Insulin Detemir Inj 1,000 UNIT/10 ML Vial SQ SCH ×2 (08:44→21:02)
--- NOTE | 2018-06-26 09:50 | P.PNCA ---
Subjective Interval history: Denies palpitations, dizziness, chest pain. Dyspnea continues to improve. Medications and Allergies Active Medications: Active Medications Albuterol (Duoneb Neb (Prn)) 1 ampul INH Q2HR NEB PRN PRN Reason: WHEEZING Albuterol (Duoneb Neb (Shari)) 1 ampul NEB Q6HR WHILE AWAKE NEB [facility] Last Admin: 06/26/18 07:41 Dose: 1 ampul Aspirin (Ecotrin) 81 mg PO DAILY [facility] Last Admin: 06/26/18 08:42 Dose: 81 mg Atorvastatin Calcium (Lipitor) 20 mg PO QPM [facility] Last Admin: 06/25/18 18:08 Dose: 20 mg Benzonatate (Tessalon Perles) 100 mg PO TID [facility] Last Admin: 06/26/18 08:42 Dose: 100 mg Dextrose (D50w Vial) 50 ml IV.PUSH UNSCH PRN PRN Reason: PER HYPOGLYCEMIA PROTOCOL Diltiazem HCl (Cardizem) 60 mg PO QID [facility] Last Admin: 06/26/18 08:43 Dose: 60 mg Enoxaparin Sodium (Lovenox Inj) 40 mg SQ DAILY [facility] Last Admin: 06/26/18 08:42 Dose: 40 mg Fluticasone/Vilanterol (Breo Ellipta 200/25 Mcg Inh) 1 puff INH DAILY [facility] Last Admin: 06/26/18 08:44 Dose: 1 puff Glucagon (Glucagon Inj) 1 mg OTHER PRN PRN PRN Reason: for Hypoglycemia Protocol Guaifenesin (Mucinex Er) 600 mg PO BID [facility] Last Admin: 06/26/18 08:43 Dose: 600 mg Insulin Aspart (Novolog Insulin Correctional Sugar Inj) 0 unit SQ ACHS AND 3AM SHARI; Protocol Last Admin: 06/26/18 08:43 Dose: 3 unit Insulin Detemir (Levemir Inj) 14 unit SQ BID [facility] Last Admin: 06/26/18 08:44 Dose: 14 unit Lactobacillus Acidophilus (Lactinex) 1 tab PO DAILY [facility] Last Admin: 06/26/18 08:42 Dose: 1 tab Levofloxacin (Levaquin) 750 mg PO DAILY@1100 [facility] Last Admin: 06/25/18 12:12 Dose: 750 mg Lorazepam (Ativan) 1 mg PO BID [facility] Last Admin: 06/26/18 08:43 Dose: 1 mg Methylprednisolone Sodium Succinate (Solumedrol Inj) 40 mg IV.PUSH Q8HR [facility] Last Admin: 06/26/18 05:18 Dose: 40 mg Patient Own Medication:( Umeclidinium [ Incruse Ellipta] 1 Inh) 0 each INH DAILY [facility] Last Admin: 06/25/18 08:22 Dose: Not Given Prednisone (Deltasone) 10 mg PO DAILY [facility] Last Admin: 06/23/18 08:32 Dose: 10 mg Quetiapine Fumarate (Seroquel) 300 mg PO HS [facility] Last Admin: 06/25/18 20:53 Dose: 300 mg Sodium Chloride (Ns Flush) 2 ml IV.FLUSH PRN PRN PRN Reason: FLUSH AFTER USING IV ACCESS Sodium Chloride (Ns Flush) 2 ml IV.FLUSH BID [facility] Last Admin: 06/25/18 20:52 Dose: 2 ml Allergies Allergy/AdvReac Type Severity Reaction Status Date / Time No Known Allergies Allergy Verified 06/22/18 01:08 Home Medications Medication Instructions Recorded Confirmed Type Lactobacillus acidophilus 1,000 mmu cells PO DAILY 06/22/18 06/22/18 History aspirin [Aspir-81] 81 mg PO DAILY 06/22/18 06/22/18 History atorvastatin 20 mg PO QPM 06/22/18 06/22/18 History benzonatate 100 mg PO TID 06/22/18 06/22/18 History fluticasone-vilanterol [Breo 1 inh INHALATION DAILY 06/22/18 06/22/18 History Ellipta] ipratropium-albuterol 3 ml INHALATION Q4HR PRN 06/22/18 06/22/18 History levofloxacin 750 mg PO DAILY 06/22/18 06/22/18 History lorazepam [Ativan] 1 mg PO BID 06/22/18 06/22/18 History metformin 500 mg PO DAILY 06/22/18 06/22/18 History montelukast 10 mg PO QPM 06/22/18 06/22/18 History morphine 10 mg PO Q4HR PRN 06/22/18 06/22/18 History omega-3 acid ethyl esters [Lovaza] 2 cap PO BID 06/22/18 06/22/18 History prednisone 10 mg PO DAILY 06/22/18 06/22/18 History quetiapine [Seroquel] 300 mg PO HS 06/22/18 06/22/18 History umeclidinium [Incruse Ellipta] 1 inh INHALATION DAILY 06/22/18 06/22/18 History Physical Exam Vital signs: Vital Signs 06/25/18 10:00 06/25/18 11:00 06/25/18 11:47 Temperature 97.7 F Pulse Rate 110 H 108 H 107 H Respiratory Rate 18 Blood Pressure 121/65 Pulse Oximetry 99 06/25/18 12:00 06/25/18 13:00 06/25/18 14:00 Temperature Pulse Rate 116 H 108 H 98 H Respiratory Rate Blood Pressure Pulse Oximetry 06/25/18 14:05 06/25/18 15:00 06/25/18 15:18 Temperature 97 F L Pulse Rate 103 H 100 H 108 H Respiratory Rate 16 18 Blood Pressure 128/63 Pulse Oximetry 98 06/25/18 15:48 06/25/18 17:00 06/25/18 18:00 Temperature Pulse Rate 91 H 106 H 98 H Respiratory Rate Blood Pressure Pulse Oximetry 06/25/18 19:00 06/25/18 19:51 06/25/18 20:00 Temperature 97.8 F Pulse Rate 99 H 58 L 98 H Respiratory Rate 18 20 Blood Pressure 121/68 Pulse Oximetry 98 99 06/25/18 21:00 06/25/18 22:00 06/25/18 23:00 Temperature Pulse Rate 107 H 105 H 90 Respiratory Rate Blood Pressure Pulse Oximetry 06/26/18 00:00 06/26/18 01:00 06/26/18 02:00 Temperature 97.5 F L Pulse Rate 106 H 104 H 92 H Respiratory Rate 16 Blood Pressure 120/66 Pulse Oximetry 98 06/26/18 03:00 06/26/18 04:00 06/26/18 05:00 Temperature 97.7 F Pulse Rate 90 89 86 Respiratory Rate 18 Blood Pressure 123/63 Pulse Oximetry 99 06/26/18 06:00 06/26/18 07:00 06/26/18 07:48 Temperature Pulse Rate 88 81 93 H Respiratory Rate 14 Blood Pressure Pulse Oximetry 97 06/26/18 08:48 Temperature 98.8 F Pulse Rate 98 H Respiratory Rate 24 Blood Pressure 125/62 Pulse Oximetry 98 Intake & Output 06/25/18 06/26/18 06/26/18 18:59 06:59 18:59 Intake Total 840 / 840 Balance 840 / 840 Weight 72.9 kg Intake: Oral 840 / 840 Other: # Voids 2 Date of Last Bowel Movement 06/25/18 # Bowel Movements 1 - Constitutional no acute distress - Routine Neck Exam Absent: JVD - Routine Respiratory Exam Present: decreased breath sounds - Routine Cardiovascular Exam Present: S1, S2, irregular rhythm. Absent: murmur, gallop - Routine Abdominal Exam Present: soft, normoactive bowel sounds. Absent: tenderness, organomegaly - Routine Extremities Exam Absent: cyanosis, clubbing, edema Results 06/24/18 08:24 06/24/18 08:24 Intake and Output 06/25/18 06/26/18 06/26/18 22:59 06:59 14:59 Intake Total 840 / 840 Balance 840 / 840 Intake: Oral 840 / 840 Other: # Voids 2 Date of Last Bowel Movement 06/25/18 # Bowel Movements 1 Weight 72.9 kg Assessment and Plan - Assessment (1) Multifocal atrial tachycardia Code(s): I47.1 - Supraventricular tachycardia Status: Acute Plan: HR's mostly normal. Remains in what appears to be a wandering atrial pacemaker/multifocal atrial tachycardia. Echo unremarkable. RECOMMEND continue oral Cardizem, aspirin. Will f/u as needed. - Plan Code Status: full Discussed Condition With: patient
[2018-06-26] MEDS: levoFLOXacin 750 MG Tablet PO SCH (11:39)
[2018-06-26] MEDS: UMECLIDINIUM INH SCH (11:39)
--- NOTE | 2018-06-26 14:12 | P.PNIM ---
Subjective Interval history: patient still feels short of breath but reports some improvement this morning. Wheezing is improving. Physical Exam Vital signs: Last Vital Signs Temp 98.8 F 06/26/18 08:48 Pulse 87 06/26/18 13:38 Resp 20 06/26/18 13:38 BP 123/52 L 06/26/18 11:56 Pulse Ox 97 06/26/18 11:56 Intake & Output 06/24/18 06/25/18 06/26/18 06/27/18 06:59 06:59 06:59 06:59 Intake Total 720 / 720 1250 / 1250 840 / 840 Output Total 800 / 800 750 / 750 Balance -80 / -80 500 / 500 840 / 840 Weight 73 kg 72.9 kg Narrative: GENERAL: elderly man,not in distress HEENT:not pale,anicteric. CARDIOVASCULAR: Regular rate and rhythm without murmurs, gallops, or rubs. RESPIRATORY: diminished air entry bilaterally,no wheezes. no rales GASTROINTESTINAL: Abdomen soft, non-tender, nondistended. Normal active bowel sounds MUSCULOSKELETAL: Extremities without clubbing, cyanosis, or edema. NEURO: Alert & Oriented x4 to person, place, time, situation. Moves all ext x4 Results Labs CBC & Chem 7: 06/24/18 08:24 06/24/18 08:24 Procedures Procedures: None Assessment and Plan (1) Multifocal atrial tachycardia: Code(s): I47.1 - Supraventricular tachycardia Status: Acute Plan 72-year-old man with h/o diabetes type 2, COPD and a current resident of a local alf facility was brought to the hospital for evaluation of worsening shortness of breath and lightheadedness. He was found to have COPD exacerbation, and tachycardia which was determined to be MAT/wondering pacemaker. COPD exacerbation- some improvement today. continue Solu-Medrol 40 mg IV q. 8-hour, long-acting beta agonist, Levaquin, Mucinex and DuoNeb scheduled and as needed -Incentive spirometry and Acapella at bedside -aggressive pulmonary toilet -Maintain oxygen saturation above 92% Multifocal atrial tachycardia- rates much improved,mostly normal. Cardizem switched to 240 mg CD once daily. ECHO-LVEF 50% Appreciate input from cardiology Diabetes type 2-blood glucose uncontrolled, worsened due to steroids. started Levemir for better glucose control,increased to 20 units bid. -Hold oral hyperglycemic agents--can resume on discharge -Continue insulin sliding scale with fingerstick blood glucose monitoring. Hyperlipidemia-cont on statin DVT prophylaxis: Lovenox PT to treat and eval--recommend rehab when medically stable. DISPO-can transfer to med surg floor. still requires inpatient treatment for COPD exacerbation.
[2018-06-26] MEDS: LORazepam 0.5 MG Tablet PO SCH (21:00)
[2018-06-27] MEDS: Insulin NovoLOG Aspart Correctional Sugar Inj SQ SCH ×5 (04:38→21:09)
[2018-06-27] MEDS: MethylPREDNISolone Sod Succinate Inj 40 MG/ML Vial IV.PUSH SCH ×4 (05:31→21:08)
[2018-06-27] MEDS: dilTIAZem CD 240 MG Capsule PO SCH ×2 (09:50→10:00)
[2018-06-27] MEDS: Lactobacillus Acidophilus/L. Spores Tablet PO SCH (09:59)
[2018-06-27] MEDS: levoFLOXacin 750 MG Tablet PO SCH (10:00)
[2018-06-27] MEDS: guaiFENesin 600 MG ER Tablet PO SCH ×2 (10:01→21:09)
[2018-06-27] MEDS: Benzonatate 100 MG Capsule PO SCH ×3 (10:01→18:44)
[2018-06-27] MEDS: LORazepam 0.5 MG Tablet PO SCH ×2 (10:02→21:09)
[2018-06-27] MEDS: Enoxaparin Inj 40 MG/0.4 ML Syringe SQ SCH (10:02)
[2018-06-27] MEDS: Insulin Detemir Inj 1,000 UNIT/10 ML Vial SQ SCH ×2 (11:28→21:16)
--- NOTE | 2018-06-27 12:06 | P.PNIM ---
Subjective Interval history: remains short of breath, coughing,bringing up some phlegm, some improvement. Physical Exam Vital signs: Last Vital Signs Temp 97.5 F L 06/27/18 08:00 Pulse 102 H 06/27/18 08:00 Resp 20 06/27/18 08:00 BP 106/65 06/27/18 08:00 Pulse Ox 97 06/27/18 08:00 Intake & Output 06/25/18 06/26/18 06/27/18 06/28/18 06:59 06:59 06:59 06:59 Intake Total 1250 / 1250 840 / 840 50 / 50 Output Total 750 / 750 375 / 375 Balance 500 / 500 840 / 840 -325 / -325 Weight 73 kg 72.9 kg Narrative: GENERAL: elderly man,not in distress HEENT:not pale,anicteric. CARDIOVASCULAR: Regular rate and rhythm without murmurs, gallops, or rubs. RESPIRATORY: diminished air entry bilaterally,no wheezes. no rales GASTROINTESTINAL: Abdomen soft, non-tender, nondistended. Normal active bowel sounds MUSCULOSKELETAL: Extremities without clubbing, cyanosis, or edema. NEURO: Alert & Oriented x3 to person, place,situation but not to time. Moves all ext x4 Results Labs CBC & Chem 7: 06/24/18 08:24 06/28/18 08:10 Labs: Microbiology 06/26/18 13:30 Sputum - Expectorated Sputum Gram Stain - Final Procedures Procedures: None Assessment and Plan (1) Multifocal atrial tachycardia: Code(s): I47.1 - Supraventricular tachycardia Status: Acute Plan 72-year-old man with h/o diabetes type 2, COPD and a current resident of a local [facility] facility was brought to the hospital for evaluation of worsening shortness of breath and lightheadedness. He was found to have COPD exacerbation, and tachycardia which was determined to be MAT/wondering pacemaker. COPD exacerbation- still short of breath, unchanged compared to yesterday. Sputum G/S -moderate pleomorphic g+ve rods, culture still pending. continue Solu-Medrol 40 mg IV q. 8-hour, long-acting beta agonist, Levaquin, Mucinex and DuoNeb scheduled and as needed -Incentive spirometry and Acapella at bedside -aggressive pulmonary toilet -Maintain oxygen saturation above 92% Multifocal atrial tachycardia- rates much improved,mostly normal. Cardizem switched to 240 mg CD once daily. ECHO-LVEF 50% Appreciate input from cardiology Diabetes type 2-blood glucose uncontrolled, worsened due to steroids. started Levemir for better glucose control,increased to 20 units bid. -Hold oral hyperglycemic agents--can resume on discharge -Continue insulin sliding scale with fingerstick blood glucose monitoring. Hyperlipidemia-cont on statin DVT prophylaxis: Lovenox PT to treat and eval--recommend rehab when medically stable. DISPO-can transfer to med surg floor. still requires inpatient treatment for COPD exacerbation.
[2018-06-27] MEDS: Acetaminophen 325 MG Tablet PO PRN (21:08)
[2018-06-28] MEDS: Insulin NovoLOG Aspart Correctional Sugar Inj SQ SCH ×5 (03:26→21:35)
[2018-06-28] MEDS: MethylPREDNISolone Sod Succinate Inj 40 MG/ML Vial IV.PUSH SCH ×3 (05:50→21:58)
[2018-06-28] MEDS ORDERED: Sodium Chlor 0.9% Inj 500 ML IV.SIG SCH (07:26)
[2018-06-28 09:22] LABS: Anion Gap 4 meq/L (5-15); Blood Urea Nitrogen 36 mg/dL (7-18); Calcium 8.3 mg/dL (8.5-10.1); Carbon Dioxide 34.4 meq/L (21.0-32.0); Chloride 101 meq/L (98-107); Glomerular Filtration Rate Greater Than 89 mL/min (>89); Glucose,Random 91 mg/dL (74-106); Potassium 4.4 meq/L (3.5-5.1); Sodium 139 meq/L (136-145)
[2018-06-28] MEDS: Insulin Detemir Inj 1,000 UNIT/10 ML Vial SQ SCH ×2 (09:55→21:38)
[2018-06-28] MEDS: guaiFENesin 600 MG ER Tablet PO SCH ×2 (09:55→21:35)
[2018-06-28] MEDS: LORazepam 0.5 MG Tablet PO SCH ×2 (09:55→21:35)
[2018-06-28] MEDS: dilTIAZem CD 240 MG Capsule PO SCH (09:55)
[2018-06-28] MEDS: Enoxaparin Inj 40 MG/0.4 ML Syringe SQ SCH (09:55)
[2018-06-28] MEDS: Benzonatate 100 MG Capsule PO SCH ×4 (09:56→18:54)
[2018-06-28] MEDS: Lactobacillus Acidophilus/L. Spores Tablet PO SCH (09:56)
[2018-06-28] MEDS: UMECLIDINIUM INH SCH ×2 (09:59→10:06)
[2018-06-28] MEDS: levoFLOXacin 750 MG Tablet PO SCH (12:38)
--- NOTE | 2018-06-28 14:25 | P.DS ---
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 While in the ED, patient was found to have sustained heart rate of over 100 for which cardiology was consulted. Patient was also started on Cardizem drip. During my exam, patient denies any chest pain and complaints of cough production. Denies any GI bleed. DS: Diagnosis Discharge Diagnosis (1) Multifocal atrial tachycardia: Status: Acute DS: Summary ISSUES ADDRESSED DURING THIS HOSPITALIZATION: 1.COPD exacerbation- Patient was started on IV Solu-Medrol,DUONEBS and continued on Levaquin.Mucinex was also given. Sputum cultures were negative. Incentive spirometry and Acapella at bedside, and aggressive pulmonary toilet done.His Lorazepam dose was reduced since it was thought it was contributing to his symptoms by making his drowsy. Patient clinically improved on above measures. He has completed the course of Levofloxacin which will be discontinued on discharge. He should be on a tapering dose of Prednisone, 30mg daily for 3 days, then 20mg daily for 3 days then 10mg daily for 3 days then stop. 2.Multifocal atrial tachycardia- Patient was tachycardic on presentation,cardiology consulted determined it was multifocal atrial tachycardia. ECHO showed LVEF 50%. He was initially on Cardizem drip and transitioned to oral Cardizem 240 mg CD once daily. 3.Diabetes type 2-blood glucose uncontrolled, worsened due to steroids. He was placed on sliding scale insulin and Levemir 20 units BID while in hospital. His oral hypoglycemics can be resumed on discharge. Time Spent with Patient Total time spent providing and/or coordinating discharge services: Exam Narrative Exam Narrative: GENERAL: elderly man,not in distress HEENT:not pale,anicteric. CARDIOVASCULAR: Regular rate and rhythm without murmurs, gallops, or rubs. RESPIRATORY: Clear to auscultation bilaterally,no wheezes. no rales GASTROINTESTINAL: Abdomen soft, non-tender, nondistended. Normal active bowel sounds MUSCULOSKELETAL: Extremities without clubbing, cyanosis, or edema. NEURO: Alert & Oriented x4 to person, place, time, situation. Moves all ext x4 Results Procedures completed during hospitalization: None Labs on day of discharge: Labs from last 24 hours 06/28/18 06/28/18 06/27/18 08:10 03:05 20:24 Sodium 139 Potassium 4.4 Chloride 101 Carbon Dioxide 34.4 H Anion Gap 4 L BUN 36 H Creatinine 0.77 Estimated GFR Greater than 89 POC Glucose 154 H 293 H Random Glucose 91 Calcium 8.3 L 06/27/18 06/27/18 18:24 14:35 Sodium Potassium Chloride Carbon Dioxide Anion Gap BUN Creatinine Estimated GFR POC Glucose 187 H 281 H Random Glucose Calcium Preliminary micro results at discharge 06/27/18 14:25 Sputum Culture - Preliminary Sputum - Expectorated Sputum Heavy growth normal respiratory geeta at 24 hours Impressions ITS Impressions Chest X-Ray 06/22/18 01:16 CONCLUSION: Chronic appearing scarring and parenchymal interstitial changes. No definite acute process. Discharge Plan Discharge Disposition Patient Disposition: Discharge to SNF Discharge Condition Condition: Stable Discharge Details Anticipated Discharge Date: 06/28/18 Physicians Team Primary Care Provider: UNKNOWN, Attending Provider: Cheryl Garcia Other Providers: Jimbo Hill ; [facility] Rxs /Orders / Referrals /Forms Prescriptions: New diltiazem HCl 240 mg Capsule,Extended Release 24hr 240 mg PO DAILY Qty: 30 RF: 0 guaifenesin [Mucinex] 600 mg Tablet Extended Release 12hr 600 mg PO BID Qty: 12 RF: 0 Continue metformin 500 mg Tablet 500 mg PO DAILY RF: 0 atorvastatin 20 mg Tablet 20 mg PO QPM RF: 0 ipratropium-albuterol 0.5 mg-3 mg(2.5 mg base)/3 mL Solution For Nebulization 3 ml INHALATION Q4HR PRN (Reason: Wheezing) RF: 0 quetiapine [Seroquel] 300 mg Tablet 300 mg PO HS RF: 0 aspirin [Aspir-81] 81 mg Tablet,Delayed Release (Dr/Ec) 81 mg PO DAILY RF: 0 morphine 20 mg/5 mL (4 mg/mL) Solution 10 mg PO Q4HR PRN (Reason: Pain) RF: 0 benzonatate 100 mg Capsule 100 mg PO TID RF: 0 montelukast 10 mg Tablet 10 mg PO QPM RF: 0 omega-3 acid ethyl esters [Lovaza] 1 gram Capsule 2 cap PO BID RF: 0 Lactobacillus acidophilus 1 billion cell Tablet 1,000 mmu cells PO DAILY RF: 0 umeclidinium [Incruse Ellipta] 62.5 mcg/actuation Blister With Device 1 inh INHALATION DAILY RF: 0 fluticasone-vilanterol [Breo Ellipta] 200-25 mcg/dose Blister With Device 1 inh INHALATION DAILY RF: 0 Discontinued levofloxacin 750 mg Tablet 750 mg PO DAILY RF: 0 Referrals: UNKNOWN, [Primary Care Provider] - See Instructions Discharge Interventions Interventions: Discharge Planning - Case Management Last Done: 06/24/18 13:43 Status ED Status: Left Department
--- NOTE | 2018-06-28 15:27 | P.PNIM ---
Subjective Interval history: patient feels his breathing is much better today,feels well to go. Physical Exam Vital signs: Last Vital Signs Temp 97.5 F L 06/28/18 12:00 Pulse 99 H 06/28/18 12:00 Resp 18 06/28/18 12:00 BP 131/82 06/28/18 12:00 Pulse Ox 100 06/28/18 08:00 Intake & Output 06/26/18 06/27/18 06/28/18 06/29/18 06:59 06:59 06:59 06:59 Intake Total 840 / 840 50 / 50 650 / 650 500 / 500 Output Total 375 / 375 175 / 175 Balance 840 / 840 -325 / -325 475 / 475 500 / 500 Weight 72.9 kg Narrative: GENERAL: elderly man,not in distress HEENT:not pale,anicteric. CARDIOVASCULAR: Regular rate and rhythm without murmurs, gallops, or rubs. RESPIRATORY: equal air entry bilaterally,clear to auscultation, no wheezes. no rales GASTROINTESTINAL: Abdomen soft, non-tender, nondistended. Normal active bowel sounds MUSCULOSKELETAL: Extremities without clubbing, cyanosis, or edema. NEURO: Alert & Oriented x3 to person, place,situation but not to time. Moves all ext x4 Results Labs CBC & Chem 7: 06/24/18 08:24 06/28/18 08:10 Labs: Microbiology 06/27/18 14:25 Sputum - Expectorated Sputum Gram Stain - Final 06/27/18 14:25 Sputum - Expectorated Sputum Sputum Culture - Preliminary Heavy growth normal respiratory geeta at 24 hours 06/26/18 13:30 Sputum - Expectorated Sputum Gram Stain - Final 06/26/18 13:30 Sputum - Expectorated Sputum Sputum Culture - Final Heavy growth normal respiratory geeta Procedures Procedures: None Assessment and Plan (1) Multifocal atrial tachycardia: Code(s): I47.1 - Supraventricular tachycardia Status: Acute Plan 72-year-old man with h/o diabetes type 2, COPD and a current resident of a local longterm facility was brought to the hospital for evaluation of worsening shortness of breath and lightheadedness. He was found to have COPD exacerbation, and tachycardia which was determined to be MAT/wondering pacemaker. COPD exacerbation- clinically improved. Sputum G/S -moderate pleomorphic g+ve rods, culture heavy growth of normal geeta. continue Solu-Medrol 40 mg IV q. 8-hour, long-acting beta agonist, Levaquin, Mucinex and DuoNeb scheduled and as needed -Incentive spirometry and Acapella at bedside -aggressive pulmonary toilet -Maintain oxygen saturation above 92% Multifocal atrial tachycardia- rates much improved,mostly normal. Cardizem switched to 240 mg CD once daily. ECHO-LVEF 50% Appreciate input from cardiology Diabetes type 2-blood glucose uncontrolled, worsened due to steroids. started Levemir for better glucose control,increased to 20 units bid. -Hold oral hyperglycemic agents--can resume on discharge -Continue insulin sliding scale with fingerstick blood glucose monitoring. Hyperlipidemia-cont on statin DVT prophylaxis: Lovenox PT to treat and eval--recommend rehab.
[2018-06-28] MEDS: Acetaminophen 325 MG Tablet PO PRN (18:51)
[2018-06-29] MEDS: Insulin NovoLOG Aspart Correctional Sugar Inj SQ SCH ×5 (04:42→20:59)
[2018-06-29] MEDS: MethylPREDNISolone Sod Succinate Inj 40 MG/ML Vial IV.PUSH SCH ×3 (06:37→21:01)
[2018-06-29] MEDS: guaiFENesin 600 MG ER Tablet PO SCH ×2 (08:52→20:59)
[2018-06-29] MEDS: Benzonatate 100 MG Capsule PO SCH ×3 (08:52→17:38)
[2018-06-29] MEDS: Lactobacillus Acidophilus/L. Spores Tablet PO SCH (08:52)
[2018-06-29] MEDS: dilTIAZem CD 240 MG Capsule PO SCH (08:52)
[2018-06-29] MEDS: LORazepam 0.5 MG Tablet PO SCH ×2 (08:53→20:59)
[2018-06-29] MEDS: Enoxaparin Inj 40 MG/0.4 ML Syringe SQ SCH (08:54)
[2018-06-29] MEDS: Insulin Detemir Inj 1,000 UNIT/10 ML Vial SQ SCH ×2 (08:55→20:59)
[2018-06-29] MEDS: UMECLIDINIUM INH SCH (09:00)
[2018-06-29] MEDS: Lidocaine 5% Patch T-DERMAL SCH (09:03)
--- NOTE | 2018-06-29 11:31 | P.PNIM ---
Subjective Interval history: still short of breath, some improvement. patient does not want to go back to facility that he was at previously. Physical Exam Vital signs: Last Vital Signs Temp 97.5 F L 06/29/18 09:00 Pulse 87 06/29/18 09:00 Resp 16 06/29/18 09:00 BP 127/60 06/29/18 09:00 Pulse Ox 98 06/29/18 09:00 Intake & Output 06/27/18 06/28/18 06/29/18 06/30/18 06:59 06:59 06:59 06:59 Intake Total 50 / 50 650 / 650 1100 / 1100 200 / 200 Output Total 375 / 375 175 / 175 800 / 800 300 / 300 Balance -325 / -325 475 / 475 300 / 300 -100 / -100 Narrative: GENERAL: elderly man,not in distress HEENT:not pale,anicteric. CARDIOVASCULAR: Regular rate and rhythm without murmurs, gallops, or rubs. RESPIRATORY: equal air entry bilaterally,clear to auscultation, no wheezes. no rales GASTROINTESTINAL: Abdomen soft, non-tender, nondistended. Normal active bowel sounds MUSCULOSKELETAL: Extremities without clubbing, cyanosis, or edema. NEURO: Alert & Oriented x3 to person, place,situation but not to time. Moves all ext x4 Results Labs CBC & Chem 7: 06/24/18 08:24 06/28/18 08:10 Labs: Microbiology 06/27/18 14:25 Sputum - Expectorated Sputum Gram Stain - Final 06/27/18 14:25 Sputum - Expectorated Sputum Sputum Culture - Preliminary Heavy growth normal respiratory geeta at 24 hours 06/26/18 13:30 Sputum - Expectorated Sputum Gram Stain - Final 06/26/18 13:30 Sputum - Expectorated Sputum Sputum Culture - Final Heavy growth normal respiratory geeta Procedures Procedures: None Assessment and Plan (1) Multifocal atrial tachycardia: Code(s): I47.1 - Supraventricular tachycardia Status: Acute Plan 72-year-old man with h/o diabetes type 2, COPD and a current resident of a local [facility] facility was brought to the hospital for evaluation of worsening shortness of breath and lightheadedness. He was found to have COPD exacerbation, and tachycardia which was determined to be MAT/wondering pacemaker. COPD exacerbation- clinically with some improvement but still sob. Sputum G/S -moderate pleomorphic g+ve rods, culture heavy growth of normal geeta. -Taper Solu-Medrol 40 mg IV q12h, -continue Mucinex and DuoNeb scheduled and as needed -long-acting beta agonist -Incentive spirometry and Acapella at bedside -aggressive pulmonary toilet -Maintain oxygen saturation above 92% nurse reported patient was still having significant SOB on exertion-- will obtain CT chest w contrast Multifocal atrial tachycardia- rates much improved,mostly normal. Cardizem switched to 240 mg CD once daily. ECHO-LVEF 50% Appreciate input from cardiology Diabetes type 2-blood glucose uncontrolled, worsened due to steroids. started Levemir for better glucose control,increased to 20 units bid. -Hold oral hyperglycemic agents--can resume on discharge -Continue insulin sliding scale with fingerstick blood glucose monitoring. Hyperlipidemia-cont on statin DVT prophylaxis: Lovenox PT to treat and eval--recommend rehab. DISPO-pending placement.
[2018-06-29] MEDS: levoFLOXacin 750 MG Tablet PO SCH (12:37)
[2018-06-29 13:39] LABS: Hemoglobin A1c 6.2 % (4.3-6.0)
[2018-06-30] MEDS: Insulin NovoLOG Aspart Correctional Sugar Inj SQ SCH ×5 (03:28→22:41)
[2018-06-30] MEDS: Insulin Detemir Inj 1,000 UNIT/10 ML Vial SQ SCH ×2 (08:37→22:42)
[2018-06-30] MEDS: dilTIAZem CD 240 MG Capsule PO SCH (08:39)
[2018-06-30] MEDS: MethylPREDNISolone Sod Succinate Inj 40 MG/ML Vial IV.PUSH SCH ×2 (08:39→20:52)
[2018-06-30] MEDS: LORazepam 0.5 MG Tablet PO SCH ×2 (08:39→20:55)
[2018-06-30] MEDS: Lactobacillus Acidophilus/L. Spores Tablet PO SCH (08:39)
[2018-06-30] MEDS: guaiFENesin 600 MG ER Tablet PO SCH ×2 (08:39→20:55)
[2018-06-30] MEDS: Benzonatate 100 MG Capsule PO SCH ×3 (08:39→19:10)
[2018-06-30] MEDS: Lidocaine 5% Patch T-DERMAL SCH (08:40)
[2018-06-30] MEDS: Enoxaparin Inj 40 MG/0.4 ML Syringe SQ SCH (08:40)
[2018-06-30] MEDS: UMECLIDINIUM INH SCH (08:41)
[2018-06-30] MEDS: levoFLOXacin 750 MG Tablet PO SCH (13:05)
--- NOTE | 2018-06-30 13:39 | P.PNIM ---
Subjective Interval history: patient still feels short of breath. wheezing is improving. Physical Exam Vital signs: Last Vital Signs Temp 97.9 F 06/30/18 12:00 Pulse 106 H 06/30/18 12:00 Resp 20 06/30/18 12:00 BP 127/63 06/30/18 12:00 Pulse Ox 98 06/30/18 12:00 Intake & Output 06/28/18 06/29/18 06/30/18 07/01/18 06:59 06:59 06:59 06:59 Intake Total 650 / 650 1100 / 1100 840 / 840 Output Total 175 / 175 800 / 800 750 / 750 Balance 475 / 475 300 / 300 90 / 90 Weight 67.6 kg Narrative: GENERAL: elderly man,not in distress HEENT:not pale,anicteric. CARDIOVASCULAR: Regular rate and rhythm without murmurs, gallops, or rubs. RESPIRATORY: reduced air entry bilaterally,clear to auscultation, no wheezes. no rales GASTROINTESTINAL: Abdomen soft, non-tender, nondistended. Normal active bowel sounds MUSCULOSKELETAL: Extremities without clubbing, cyanosis, or edema. NEURO: Alert & Oriented x3 to person, place,situation but not to time. Moves all ext x4 Results Labs CBC & Chem 7: 06/24/18 08:24 06/28/18 08:10 Labs: Microbiology 06/27/18 14:25 Sputum - Expectorated Sputum Gram Stain - Final 06/27/18 14:25 Sputum - Expectorated Sputum Sputum Culture - Final Heavy growth normal respiratory geeta Procedures Procedures: None Assessment and Plan (1) Multifocal atrial tachycardia: Code(s): I47.1 - Supraventricular tachycardia Status: Acute Plan 72-year-old man with h/o diabetes type 2, COPD and a current resident of a local long-term facility was brought to the hospital for evaluation of worsening shortness of breath and lightheadedness. He was found to have COPD exacerbation, and tachycardia which was determined to be MAT/wondering pacemaker. COPD exacerbation, h/o chronic hypoxic respiratory failure on home Oxygen 3.5 l/ min- clinically with some improvement but still sob. Sputum G/S -moderate pleomorphic g+ve rods, culture heavy growth of normal geeta. -Taper Solu-Medrol 40 mg IV q12h, -continue Mucinex and DuoNeb scheduled and as needed -long-acting beta agonist -Incentive spirometry and Acapella at bedside -aggressive pulmonary toilet -continue usual home oxygen,Maintain oxygen saturation above 92% nurse reported patient was still having significant SOB on exertion-- will obtain CT chest w contrast for further eval, consult pulmonary Multifocal atrial tachycardia- rates much improved,mostly normal. Cardizem switched to 240 mg CD once daily. ECHO-LVEF 50% Appreciate input from cardiology Diabetes type 2-blood glucose uncontrolled, worsened due to steroids. started Levemir for better glucose control,increased to 20 units bid. -Hold oral hyperglycemic agents--can resume on discharge -Continue insulin sliding scale with fingerstick blood glucose monitoring. Hyperlipidemia-cont on statin DVT prophylaxis: Lovenox PT to treat and eval--recommend rehab. DISPO-pending placement.
--- NOTE | 2018-06-30 19:45 | P.PNIM ---
Subjective Interval history: noit seen Physical Exam Vital signs: Last Vital Signs Temp 97.4 F L 06/30/18 16:00 Pulse 88 06/30/18 16:00 Resp 26 H 06/30/18 16:00 BP 121/72 06/30/18 16:00 Pulse Ox 100 06/30/18 16:00 Intake & Output 06/28/18 06/29/18 06/30/18 07/01/18 06:59 06:59 06:59 06:59 Intake Total 650 / 650 1100 / 1100 840 / 840 585 / 585 Output Total 175 / 175 800 / 800 750 / 750 475 / 475 Balance 475 / 475 300 / 300 90 / 90 110 / 110 Weight 67.6 kg Narrative: GENERAL: elderly man,not in distress HEENT:not pale,anicteric. CARDIOVASCULAR: Regular rate and rhythm without murmurs, gallops, or rubs. RESPIRATORY: equal air entry bilaterally,clear to auscultation, no wheezes. no rales GASTROINTESTINAL: Abdomen soft, non-tender, nondistended. Normal active bowel sounds MUSCULOSKELETAL: Extremities without clubbing, cyanosis, or edema. NEURO: Alert & Oriented x3 to person, place,situation but not to time. Moves all ext x4 Results Labs CBC & Chem 7: 06/24/18 08:24 06/28/18 08:10 Imaging Imaging: ITS Impressions Chest X-Ray 06/22/18 01:16 CONCLUSION: Chronic appearing scarring and parenchymal interstitial changes. No definite acute process. Procedures Procedures: None Assessment and Plan (1) Multifocal atrial tachycardia: Code(s): I47.1 - Supraventricular tachycardia Status: Acute Plan 72-year-old man with h/o diabetes type 2, COPD and a current resident of a local residential facility was brought to the hospital for evaluation of worsening shortness of breath and lightheadedness. He was found to have COPD exacerbation, and tachycardia which was determined to be MAT/wondering pacemaker. COPD exacerbation, h/o chronic hypoxic respiratory failure on home Oxygen 3.5 l/ min- clinically with some improvement but still sob. Sputum G/S -moderate pleomorphic g+ve rods, culture heavy growth of normal getea. -Solu-Medrol increased to 40 mg IV q 6h, -continue Mucinex and DuoNeb scheduled and as needed -long-acting beta agonist -Incentive spirometry and Acapella at bedside -aggressive pulmonary toilet -continue usual home oxygen,Maintain oxygen saturation above 92% nurse reported patient was still having significant SOB on exertion-- will obtain CT chest w contrast for further eval, consult pulmonary Multifocal atrial tachycardia- rates much improved,mostly normal. Cardizem switched to 240 mg CD once daily. ECHO-LVEF 50% Appreciate input from cardiology Diabetes type 2-blood glucose uncontrolled, worsened due to steroids. started Levemir for better glucose control,increased to 20 units bid. -Hold oral hyperglycemic agents--can resume on discharge -Continue insulin sliding scale with fingerstick blood glucose monitoring. Hyperlipidemia-cont on statin DVT prophylaxis: Lovenox PT to treat and eval--recommend rehab. DISPO-pending placement.
--- NOTE | 2018-06-30 19:46 | CT ---
EXAM DATE: 06/30/2018 7:26 PM EST AGE/SEX: 72 years / Male INDICATIONS: Shortness of breath. CLINICAL DATA: This is the patient's subsequent encounter. Patient reports that signs and symptoms h ave been present for 1 week and indicates a pain score of 0/10. MEDICAL/SURGICAL HISTORY: Chronic obstructive pulmonary disease. Cardiovascular disease. Atrial fi brillation None. RADIATION DOSE: 9.95 CTDI (mGy) COMPARISON: No prior exams available for comparison. TECHNIQUE: Multiple contiguous axial images were obtained through the chest during bolus infusion of 86 ml Omnipaque 350 (iohexol) nonionic water-soluble contrast as a single exam dose. Images were obtained in suspended respiration using multiple row detector helical technique. Using automated exp osure control and adjustment of the mA and/or kV according to patient size, radiation dose was kept a s low as reasonably achievable to obtain optimal diagnostic quality images. DICOM format image data is available electronically for review and comparison. FINDINGS: Lungs: Possible filling defects in the right lower lobe pulmonary artery branches. Linear high densi ty along the pleural margin of the left upper lung indicating postsurgical change or chronic scarring . Mild pulmonary parenchymal emphysema bilaterally. Calcified granuloma in the lingula adjacent to th e major fissure on the left. 1.0 x 1.0 cm round noncalcified pulmonary nodular density in the superio r segment left lower lobe on image #18. Volume loss and opacity in the inferior aspect of the right l ower lobe indicating atelectasis versus scarring Mediastinum: Calcified lymph nodes in the subcarinal and left hilar regions. Aortic calcification an d coronary artery calcification noted. No enlarged mediastinal lymph nodes. Pleurae: No evidence of pleural effusion. Axillae: Unremarkable. Bony Structures: Multiple old right-sided rib fractures. Moderate severity T8 vertebral body radha saravanan fracture deformity, age indeterminate. Miscellaneous: Upper abdomen within normal limits. CONCLUSION: 1. Possible right lower lobe pulmonary emboli. Recommend a follow-up CTA to evaluate for pulmonary e mbolus. 2. 1 cm superior segment left lower lobe noncalcified pulmonary nodule. This finding is indeterminat e. If no comparison chest CT examinations are available to establish stability, routine outpatient PE T/CT examination is recommended. 3. Age-indeterminate moderate severity T8 vertebral body compression fracture. No evidence of bony r etropulsion. 4. Mild pulmonary emphysema. 5. Postsurgical findings versus scarring in the left upper lung. 6. Old granulomatous disease. 7. Atelectasis versus scarring in the right lower lobe inferiorly. Electronically signed by: Newton Oneill MD Board Certified Radiologist 06/30/2018 7:45 PM EST
--- NOTE | 2018-06-30 20:01 | MB ---
cc: Marco A Victor MD DATE: 06/30/2018 REQUESTING PHYSICIAN: Cheryl Garcia MD REASON FOR CONSULTATION: COPD exacerbation. HISTORY OF PRESENT ILLNESS: Mr. Le is a 72-year-old white male with a history of hypertension, COPD and diabetes mellitus. The patient was admitted and discharged on 05/23/2018. There is a discrepancy in the history. As per the ER record, the patient was brought from the [facility], but the patient states that he is from the [place] where he lives, follows with a associate director financial aid, has had multiple admissions and he lives with his sister over there. The patient was admitted in this hospital on 06/22/2018 with shortness of breath. The patient was seen by cardiology. He has shortness of breath to the extent that he can barely take a few steps without getting any shortness of breath. He has cough and congestion. No fever or chills. No night sweats. No chest pain. LABORATORY DATA: He was worked up in the hospital. His WBC count is 25.4, hemoglobin 11.3, hematocrit 33.2, MCV 86, platelet count 163. Sodium 139, potassium 4.4, chloride 101, CO2 of 34, BUN 36, creatinine 0.71. His glucose is running high at 296 and 191. His blood gas, pH of 7.45, pCO2 of 42, pO2 of 93 on 2 liters nasal cannula. PAST MEDICAL HISTORY: History of hypertension, diabetes mellitus, COPD. MEDICATIONS: He is currently takin. Hydrocodone 5/325. 2. Albuterol and Atrovent nebulizer treatments. 3. Lipitor 20 mg. 4. Tessalon 100 mg 3 times a day. 5. Diltiazem 240 mg a day. 6. Lovenox 40 mg subcutaneous 7. Breo Ellipta 200/25 once a day. 8. Mucinex 600 mg twice a day. 9. NovoLog insulin. 10. Levemir insulin. 11. Ativan p.r.n. 12. Solu-Medrol 40 mg q.12 hours. 13 . Prednisone 10 mg a day. 14. Seroquel 300 mg a day. ALLERGIES: NO KNOWN DRUG ALLERGIES. 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 He had history of smoking, which he quit 15 years ago. No alcohol abuse. FAMILY HISTORY: He states that he lives with his daughter and nephew and nieces. He has 4 children. REVIEW OF SYSTEMS: He can barely walk a few steps. Denies any seizure, stroke or epilepsy. No malignancy. PHYSICAL EXAMINATION: GENERAL: Well-built, well-nourished male, short of breath even at rest. VITAL SIGNS: Blood pressure 121/72, heart rate 87, respirations 26, temperature 97.4. HEENT: Pupils are equal, round and reactive to light. Oral mucosa and nasal mucosa are normal. NECK: Supple. JVD not raised. CHEST: He has expiratory rhonchi. HEART: S1, S2 normal. ABDOMEN: Soft, nondistended. Bowel sounds are present. EXTREMITIES: No edema. IMPRESSION: 1. Chronic obstructive pulmonary disease exacerbation. 2. Chronic respiratory insufficiency looks. It looks like he is end-stage chronic obstructive pulmonary disease. 3. Diabetes mellitus. 4. Multifocal atrial tachycardia. 5. Hypertension. PLAN: I discussed with the patient. He states that he was in the hospice before. We will get the records. Continue Solu-Medrol. I will increase the Solu-Medrol to 40 mg q.6 hours since he still continues to have wheezing. Blood pressure is under control. We will monitor the blood sugar closely. Continue antibiotic, aerosol treatments, Breo Ellipta once a day, subcutaneous Lovenox. Further treatment will depend on the course in the hospital. Thank you, Dr. Garcia, for this consult. MD CHRISTI Addison/tricia , 06:50 PM , 06:59 PM
[2018-06-30] MEDS ORDERED: Enoxaparin Inj 80 MG/0.8 ML Syringe SQ STA (20:51)
[2018-07-01] MEDS: Insulin NovoLOG Aspart Correctional Sugar Inj SQ SCH ×6 (05:17→22:57)
[2018-07-01] MEDS: MethylPREDNISolone Sod Succinate Inj 40 MG/ML Vial IV.PUSH SCH ×4 (05:20→22:39)
[2018-07-01 10:07] LABS: Anion Gap 3 meq/L (5-15); Blood Urea Nitrogen 31 mg/dL (7-18); Calcium 8.1 mg/dL (8.5-10.1); Carbon Dioxide 34.4 meq/L (21.0-32.0); Chloride 102 meq/L (98-107); Glomerular Filtration Rate Greater Than 89 mL/min (>89); Glucose,Random 60 mg/dL (74-106); Potassium 4.4 meq/L (3.5-5.1); Sodium 139 meq/L (136-145)
[2018-07-01] MEDS: Lidocaine 5% Patch T-DERMAL SCH (11:20)
[2018-07-01] MEDS: LORazepam 0.5 MG Tablet PO SCH ×2 (11:21→22:39)
[2018-07-01] MEDS: dilTIAZem CD 240 MG Capsule PO SCH (11:22)
[2018-07-01] MEDS: Lactobacillus Acidophilus/L. Spores Tablet PO SCH (11:22)
[2018-07-01] MEDS: guaiFENesin 600 MG ER Tablet PO SCH ×2 (11:23→22:39)
[2018-07-01] MEDS: Enoxaparin Inj 80 MG/0.8 ML Syringe SQ SCH ×2 (11:23→22:40)
[2018-07-01] MEDS: Insulin Detemir Inj 1,000 UNIT/10 ML Vial SQ SCH ×2 (11:23→22:57)
[2018-07-01] MEDS: Benzonatate 100 MG Capsule PO SCH ×3 (11:24→17:28)
--- NOTE | 2018-07-01 13:15 | P.PNIM ---
Subjective Interval history: Follow-up COPD. States his breathing is about the same. Agrees with anticoagulation with Lovenox then Doacs proximal and cons discussed with patient. Aware he needs CAT scan or repeat chest CT in 3 months to follow- up left lower lobe nodule. States his lower back has been bothering him for weeks he is not tender in the T8 area. He prefers to go home. Physical Exam Vital signs: Last Vital Signs Temp 97.5 F L 07/01/18 12:00 Pulse 95 H 07/01/18 12:00 Resp 18 07/01/18 12:00 BP 141/76 H 07/01/18 12:00 Pulse Ox 99 07/01/18 12:00 Intake & Output 06/29/18 06/30/18 07/01/18 07/02/18 06:59 06:59 06:59 06:59 Intake Total 1100 / 1100 840 / 840 825 / 825 Output Total 800 / 800 750 / 750 575 / 575 Balance 300 / 300 90 / 90 250 / 250 Weight 67.6 kg 67.8 kg Narrative: GENERAL: elderly man,not in distress CARDIOVASCULAR: Regular rate and rhythm without murmurs, gallops, or rubs. RESPIRATORY: reduced air entry bilaterally,clear to auscultation, no wheezes. no rales GASTROINTESTINAL: Abdomen soft, non-tender, nondistended. Normal active bowel sounds MUSCULOSKELETAL: Extremities without clubbing, cyanosis, or edema. NEURO: Alert & Oriented x3 to person, place,situation but not to time. Moves all ext x4 Results Labs CBC & Chem 7: 06/24/18 08:24 07/01/18 07:22 Imaging Imaging: Impressions Chest CT 06/30/18 00:00 CONCLUSION: 1. Possible right lower lobe pulmonary emboli. Recommend a follow-up CTA to evaluate for pulmonary embolus. 2. 1 cm superior segment left lower lobe noncalcified pulmonary nodule. This finding is indeterminate. If no comparison chest CT examinations are available to establish stability, routine outpatient PET/CT examination is recommended. 3. Age-indeterminate moderate severity T8 vertebral body compression fracture. No evidence of bony retropulsion. 4. Mild pulmonary emphysema. 5. Postsurgical findings versus scarring in the left upper lung. 6. Old granulomatous disease. 7. Atelectasis versus scarring in the right lower lobe inferiorly. Procedures Procedures: none Assessment and Plan (1) Multifocal atrial tachycardia: Code(s): I47.1 - Supraventricular tachycardia Status: Acute Plan 72-year-old man with h/o diabetes type 2, COPD and a current resident of a local detention facility was brought to the hospital for evaluation of worsening shortness of breath and lightheadedness. He was found to have COPD exacerbation, and tachycardia which was determined to be MAT/wondering pacemaker. COPD exacerbation, h/o chronic hypoxic respiratory failure on home Oxygen 3.5 l/ min- clinically with some improvement but still sob. Sputum G/S -moderate pleomorphic g+ve rods, culture heavy growth of normal geeta. -Solu-Medrol increased to 40 mg IV q 6h, -continue Mucinex and DuoNeb scheduled and as needed -long-acting beta agonist -Incentive spirometry and Acapella at bedside -aggressive pulmonary toilet -continue usual home oxygen,Maintain oxygen saturation above 92% Possible right lower lobe PE. Continue Lovenox switch to the OAC. Consult case management Left lower lobe nodule. Outpatient PET or repeat chest CT in 3 months T8 vertebral body fracture. Patient without tenderness over T8 area. Multifocal atrial tachycardia- rates much improved,mostly normal. Cardizem switched to 240 mg CD once daily. ECHO-LVEF 50% Appreciate input from cardiology Diabetes type 2-blood glucose uncontrolled, worsened due to steroids. A1c 6.2 started Levemir for better glucose control,increased to 20 units bid. -Hold oral hyperglycemic agents--can resume on discharge -Continue insulin sliding scale with fingerstick blood glucose monitoring. Hyperlipidemia-cont on statin DVT prophylaxis: Lovenox PT to treat and eval--recommend rehab. DISPO-accepted by [facility] when cleared by pulmonary
[2018-07-01] MEDS: UMECLIDINIUM INH SCH (15:33)
--- NOTE | 2018-07-01 20:25 | P.PNPL ---
Subjective Interval history: 72 YOWM with Severe COPD, HTNmDM SOB even at rest maintains sat with NC CT chest suspicious for PE, lung nodule Physical Exam Vital signs: Vital Signs 06/30/18 20:47 06/30/18 23:11 07/01/18 00:02 Temperature 97.9 F Pulse Rate 53 L 85 81 Respiratory Rate 20 18 Blood Pressure 114/67 Pulse Oximetry 99 100 07/01/18 03:00 07/01/18 04:00 07/01/18 08:00 Temperature 98.2 F 97.5 F L Pulse Rate 69 78 96 H Respiratory Rate 18 18 Blood Pressure 112/66 112/60 Pulse Oximetry 99 100 07/01/18 12:00 07/01/18 16:00 07/01/18 19:26 Temperature 97.5 F L 97.7 F 97.9 F Pulse Rate 92 H 90 95 H Respiratory Rate 18 24 28 H Blood Pressure 141/76 H 142/66 H 117/70 Pulse Oximetry 99 98 98 Intake & Output 07/01/18 07/01/18 07/02/18 06:59 18:59 06:59 Intake Total 240 / 240 780 / 780 Output Total 100 / 100 625 / 625 200 / 200 Balance 140 / 140 155 / 155 -200 / -200 Weight 67.8 kg Intake: Oral 240 / 240 780 / 780 Output: Urine 100 / 100 625 / 625 200 / 200 Other: Date of Last Bowel Movement 06/28/18 06/28/18 GENERAL: Elderly WM, sob at rest SKIN: Warm and dry. HEAD: Normocephalic. EYES: No scleral icterus. No injection or drainage. NECK: Supple, trachea midline. No JVD or lymphadenopathy. CARDIOVASCULAR: Regular rate and rhythm without murmurs, gallops, or rubs. RESPIRATORY: Breath sounds equal bilaterally. accessory muscle use. GASTROINTESTINAL: Abdomen soft, non-tender, nondistended. MUSCULOSKELETAL: No cyanosis, or edema. BACK: Nontender without obvious deformity. No CVA tenderness. Assessment and Plan - Plan IMPRESSION: 1. Chronic obstructive pulmonary disease exacerbation. 2. Chronic respiratory insufficiency looks. It looks like he is end-stage chronic obstructive pulmonary disease. 3. Diabetes mellitus. 4. Multifocal atrial tachycardia. 5. Hypertension. 6. R/O PE PLAN: Aerosol nebs Cont Solumedrol Supplement 02 Lovenox 70 mg q 12 hrs CTA chest to r/o PE Prognosis gaurded
--- NOTE | 2018-07-01 20:47 | CT ---
EXAM DATE: 07/01/2018 8:31 PM EST AGE/SEX: 72 years / Male INDICATIONS: Abnormal CT chest. CLINICAL DATA: This is the patient's subsequent encounter. Patient reports that signs and symptoms h ave been present for 2 days and indicates a pain score of 5/10. MEDICAL/SURGICAL HISTORY: Chronic obstructive pulmonary disease. None. RADIATION DOSE: 14.17 CTDI (mGy) COMPARISON: [facility] [place], CT CHEST W CONTRAST, 06/30/2018. . TECHNIQUE: Volumetric scanning was performed using a multi-row detector CT scanner during bolus infu saravanan of 72 ml Omnipaque 350 (iohexol) nonionic water-soluble contrast as a single exam dose. The hany a was post processed with a variety of visualization algorithms including full volume maximum intensi ty projection and sliding thin slab reformation. Using automated exposure control and adjustment of t he mA and/or kV according to patient size, radiation dose was kept as low as reasonably achievable to obtain optimal diagnostic quality images. DICOM format image data is available electronically for r eview and comparison. FINDINGS: Pulmonary Arteries: Filling defect within the right lower lobe pulmonary arteries as seen on previou s study The left and right pulmonary arteries are normal in diameter. Lung: Moderate to severe centrilobular emphysema. 1 cm nodule in the left lung unchanged.. Right bas ilar consolidation. Calcification along the pleura the left upper lung with postsurgical changes. Effusion: None. Mediastinum: No evidence of mediastinal or hilar adenopathy. Other: The axilla is unremarkable. CONCLUSION: 1. Right lower lobe pulmonary embolus. 2. Right basilar consolidation. 3. Emphysema and left lung nodule. PET/CT scan recommended. Electronically signed by: Ashvin Yung MD Board Certified Radiologist 07/01/2018 8:46 PM EST
[2018-07-02] MEDS: Insulin NovoLOG Aspart Correctional Sugar Inj SQ SCH ×5 (03:23→21:34)
[2018-07-02] MEDS: MethylPREDNISolone Sod Succinate Inj 40 MG/ML Vial IV.PUSH SCH ×4 (05:55→23:10)
[2018-07-02 06:20] LABS: Anion Gap 2 meq/L (5-15); Blood Urea Nitrogen 37 mg/dL (7-18); Calcium 7.8 mg/dL (8.5-10.1); Carbon Dioxide 34.7 meq/L (21.0-32.0); Chloride 100 meq/L (98-107); Glomerular Filtration Rate Greater Than 89 mL/min (>89); Glucose,Random 198 mg/dL (74-106); Potassium 4.3 meq/L (3.5-5.1); Sodium 137 meq/L (136-145)
[2018-07-02] MEDS ORDERED: Insulin Detemir Inj 1,000 UNIT/10 ML Vial SQ SCH (09:00)
[2018-07-02] MEDS: Enoxaparin Inj 80 MG/0.8 ML Syringe SQ SCH ×2 (09:11→21:34)
[2018-07-02] MEDS: dilTIAZem CD 240 MG Capsule PO SCH (09:12)
[2018-07-02] MEDS: LORazepam 0.5 MG Tablet PO SCH ×2 (09:12→21:30)
[2018-07-02] MEDS: guaiFENesin 600 MG ER Tablet PO SCH ×2 (09:12→21:30)
[2018-07-02] MEDS: Lactobacillus Acidophilus/L. Spores Tablet PO SCH (09:12)
[2018-07-02] MEDS: Benzonatate 100 MG Capsule PO SCH ×3 (09:12→17:44)
[2018-07-02] MEDS: Lidocaine 5% Patch T-DERMAL SCH (09:13)
--- NOTE | 2018-07-02 09:17 | P.PNIM ---
Subjective Interval history: F/U COPD and PE. Still SOB and complains of productive cough with green phlegm Physical Exam Vital signs: Last Vital Signs Temp 97.3 F L 07/02/18 07:56 Pulse 98 H 07/02/18 07:56 Resp 36 H 07/02/18 07:56 BP 130/67 07/02/18 07:56 Pulse Ox 100 07/02/18 07:56 Intake & Output 06/30/18 07/01/18 07/02/18 07/03/18 06:59 06:59 06:59 06:59 Intake Total 840 / 840 825 / 825 1260 / 1260 Output Total 750 / 750 575 / 575 1125 / 1125 Balance 90 / 90 250 / 250 135 / 135 Weight 67.6 kg 67.8 kg 69.2 kg Narrative: GENERAL: Well-developed and well-nourished in no distress SKIN: Warm and dry. CARDIOVASCULAR: Regular rate and rhythm. RESPIRATORY: No accessory muscle use. Diffuse expiratory wheezes GASTROINTESTINAL: Abdomen soft, non-tender, nondistended. MUSCULOSKELETAL: Extremities without clubbing, cyanosis, or edema. No obvious deformities. NEUROLOGICAL: Awake and alert. No obvious cranial nerve deficits. Motor grossly within normal limits. Five out of 5 muscle strength in the arms and legs. Normal speech. PSYCHIATRIC: Appropriate mood and affect; insight and judgment normal. Results Labs CBC & Chem 7: 06/24/18 08:24 07/02/18 03:51 Imaging Imaging: Impressions Chest CTA 07/01/18 00:00 CONCLUSION: 1. Right lower lobe pulmonary embolus. 2. Right basilar consolidation. 3. Emphysema and left lung nodule. PET/CT scan recommended. Assessment and Plan (1) Multifocal atrial tachycardia: Code(s): I47.1 - Supraventricular tachycardia Status: Acute Plan 72-year-old man with h/o diabetes type 2, COPD and a current resident of a local skilled nursing facility was brought to the hospital for evaluation of worsening shortness of breath and lightheadedness. He was found to have COPD exacerbation, and tachycardia which was determined to be MAT/wondering pacemaker. COPD exacerbation, h/o chronic hypoxic respiratory failure on home Oxygen 3.5 l/ min- clinically with some improvement but still sob. Sputum G/S -moderate pleomorphic g+ve rods, culture heavy growth of normal geeta. -Solu-Medrol 40 mg IV q 6h, -continue Mucinex and DuoNeb scheduled and as needed -long-acting beta agonist -Incentive spirometry and Acapella at bedside -aggressive pulmonary toilet -continue usual home oxygen,Maintain oxygen saturation above 92% Hospital-acquired pneumonia with sepsis. Obtain blood culture, pneumococcal and Legionella urinary antigen repeat sputum studies. Start Joyce Right lower lobe PE. Continue Lovenox switch to the OAC/Eliquis 10 mg twice a day for 1 week then 5 mg twice a day. Consult case management Left lower lobe nodule. Outpatient PET or repeat chest CT in 3 months T8 vertebral body fracture. Patient without tenderness over T8 area. Multifocal atrial tachycardia- rates much improved,mostly normal. Cardizem switched to 240 mg CD once daily. ECHO-LVEF 50% Appreciate input from cardiology Diabetes type 2-blood glucose uncontrolled, worsened due to steroids. A1c 6.2 started Levemir for better glucose control,increased to 2 25 units in the morning and continue 20 units at bedtime -Hold oral hyperglycemic agents--can resume on discharge -Continue insulin sliding scale with fingerstick blood glucose monitoring. Hyperlipidemia-cont on statin DVT prophylaxis: Lovenox PT to treat and eval--recommend rehab. DISPO-accepted by [facility] when cleared by pulmonary Not stable for discharge
[2018-07-02] MEDS: UMECLIDINIUM INH SCH (11:49)
[2018-07-02] MEDS: Piperacil/Tazo 4.5 GM Premix 4.5 GM/100 ML BAG IV.SIG SCH ×3 (12:17→23:10)
[2018-07-02] MEDS ORDERED: Naloxone Inj 0.4 MG/ML Vial IV.PUSH PRN (17:32)
[2018-07-02] MEDS: Morphine Inj 4 MG/ML Vial IV.PUSH PRN (18:33)
--- NOTE | 2018-07-02 19:31 | P.PNPL ---
Subjective Interval history: 72 YOWM with Severe COPD, HTNmDM maintains sat with [place] CTA showes Rt PE Breathing better Physical Exam Vital signs: Vital Signs 07/01/18 19:30 07/01/18 19:43 07/02/18 00:06 Temperature Pulse Rate 97 H 96 H Respiratory Rate 18 Blood Pressure Pulse Oximetry 07/02/18 00:36 07/02/18 03:24 07/02/18 04:00 Temperature 97.9 F 97.6 F Pulse Rate 92 H 85 Respiratory Rate 18 16 18 Blood Pressure 129/66 111/44 L Pulse Oximetry 100 99 07/02/18 04:03 07/02/18 07:56 07/02/18 08:00 Temperature 97.3 F L Pulse Rate 85 98 H 97 H Respiratory Rate 36 H 24 Blood Pressure 130/67 Pulse Oximetry 100 07/02/18 12:00 07/02/18 16:00 Temperature 98.6 F Pulse Rate 99 H 101 H Respiratory Rate 28 H Blood Pressure 122/74 Pulse Oximetry 99 Intake & Output 07/02/18 07/02/18 07/03/18 06:59 18:59 06:59 Intake Total 480 / 480 200 / 200 Output Total 500 / 500 575 / 575 Balance -20 / -20 -375 / -375 Weight 69.2 kg Intake: IV 200 / 200 Zosyn 4.5 GM Premix 4.5 gm In 200 / 200 100 ml @ 200 mls/hr IV.SIG Q6H MARCELINO Rx#:[id number] Oral 480 / 480 Output: Urine 500 / 500 575 / 575 Other: Date of Last Bowel Movement 06/28/18 # Bowel Movements 0 GENERAL: Elderly WM, mild sob SKIN: Warm and dry. HEAD: Normocephalic. EYES: No scleral icterus. No injection or drainage. NECK: Supple, trachea midline. No JVD or lymphadenopathy. CARDIOVASCULAR: Regular rate and rhythm without murmurs, gallops, or rubs. RESPIRATORY: Breath sounds equal bilaterally. No accessory muscle use. GASTROINTESTINAL: Abdomen soft, non-tender, nondistended. MUSCULOSKELETAL: No cyanosis, or edema. BACK: Nontender without obvious deformity. No CVA tenderness. Assessment and Plan - Plan IMPRESSION: 1. Chronic obstructive pulmonary disease exacerbation. 2. Chronic respiratory insufficiency looks. It looks like he is end-stage chronic obstructive pulmonary disease. 3. Diabetes mellitus. 4. Multifocal atrial tachycardia. 5. Hypertension. 6. R/O PE PLAN: Aerosol nebs Cont Solumedrol Supplement 02 Lovenox 70 mg q 12 hrs Prognosis gaurded
[2018-07-02] MEDS: Insulin Detemir Inj 1,000 UNIT/10 ML Vial SQ SCH (21:29)
[2018-07-03] MEDS: Insulin NovoLOG Aspart Correctional Sugar Inj SQ SCH ×5 (03:10→20:41)
[2018-07-03] MEDS: MethylPREDNISolone Sod Succinate Inj 40 MG/ML Vial IV.PUSH SCH ×3 (05:22→23:57)
[2018-07-03] MEDS: Piperacil/Tazo 4.5 GM Premix 4.5 GM/100 ML BAG IV.SIG SCH ×4 (05:26→23:57)
[2018-07-03] MEDS: Insulin Detemir Inj 1,000 UNIT/10 ML Vial SQ SCH ×2 (08:01→20:38)
[2018-07-03] MEDS: Enoxaparin Inj 80 MG/0.8 ML Syringe SQ SCH (11:00)
[2018-07-03] MEDS: Lactobacillus Acidophilus/L. Spores Tablet PO SCH (11:02)
[2018-07-03] MEDS: LORazepam 0.5 MG Tablet PO SCH ×2 (11:02→20:27)
[2018-07-03] MEDS: Benzonatate 100 MG Capsule PO SCH ×3 (11:02→17:40)
[2018-07-03] MEDS: dilTIAZem CD 240 MG Capsule PO SCH (11:02)
[2018-07-03] MEDS: guaiFENesin 600 MG ER Tablet PO SCH ×2 (11:02→20:27)
[2018-07-03] MEDS: UMECLIDINIUM INH SCH (11:16)
[2018-07-03] MEDS: Lidocaine 5% Patch T-DERMAL SCH (11:25)
--- NOTE | 2018-07-03 14:19 | P.PNIM ---
Subjective Interval history: Follow-up PE and pneumonia. Today he is breathing better able to talk more. Physical Exam Vital signs: Vital Signs 07/02/18 16:00 07/02/18 19:49 07/02/18 20:05 Temperature 98 F Pulse Rate 101 H 98 H 113 H Respiratory Rate 32 H Blood Pressure 106/63 Pulse Oximetry 99 07/02/18 20:33 07/02/18 23:19 07/02/18 23:31 Temperature 97.8 F Pulse Rate 94 H 94 H 98 H Respiratory Rate 18 18 Blood Pressure 122/71 Pulse Oximetry 99 100 07/03/18 03:03 07/03/18 04:10 07/03/18 08:45 Temperature 97.8 F 98.1 F Pulse Rate 102 H 101 H 60 Respiratory Rate 22 24 Blood Pressure 128/72 147/63 H Pulse Oximetry 100 100 07/03/18 12:48 Temperature 97.5 F L Pulse Rate 59 L Respiratory Rate 16 Blood Pressure 146/67 H Pulse Oximetry 100 Intake & Output 07/02/18 07/03/18 07/03/18 18:59 06:59 18:59 Intake Total 200 / 200 470 / 470 200 / 200 Output Total 575 / 575 450 / 450 Balance -375 / -375 20 / 20 200 / 200 Weight 69 kg Intake: IV 200 / 200 110 / 110 200 / 200 Zosyn 4.5 GM Premix 4.5 gm In 200 / 200 110 / 110 200 / 200 100 ml @ 200 mls/hr IV.SIG Q6H MARCELINO Rx#:[id number] Oral 360 / 360 Output: Urine 575 / 575 450 / 450 Other: Date of Last Bowel Movement 06/28/18 Narrative: GENERAL: Well-developed and well-nourished in no distress SKIN: Warm and dry. CARDIOVASCULAR: Regular rate and rhythm. RESPIRATORY: No accessory muscle use. Decreased breath sounds no wheezes GASTROINTESTINAL: Abdomen soft, non-tender, nondistended. MUSCULOSKELETAL: Extremities without clubbing, cyanosis, or edema. No obvious deformities. NEUROLOGICAL: Awake and alert. No obvious cranial nerve deficits. Motor grossly within normal limits. Five out of 5 muscle strength in the arms and legs. Normal speech. Results Labs CBC & Chem 7: 06/24/18 08:24 07/02/18 03:51 Labs: Microbiology 07/02/18 13:00 Sputum - Expectorated Sputum Gram Stain - Final 07/02/18 13:00 Sputum - Expectorated Sputum Sputum Culture - Preliminary Heavy growth normal respiratory geeta at 24 hours 07/02/18 09:37 Blood - Peripheral Aerobic Blood Culture - Preliminary No growth in 1 day 07/02/18 09:37 Blood - Peripheral Anaerobic Blood Culture - Preliminary No growth in 1 day 07/02/18 09:40 Blood - Peripheral Aerobic Blood Culture - Preliminary No growth in 1 day 07/02/18 09:40 Blood - Peripheral Anaerobic Blood Culture - Preliminary No growth in 1 day 07/02/18 13:00 Urine - Clean Catch Urine Streptococcus pneumoniae Antigen ( M - Final Presumptive negative for streptococcus pneumoniae antigen, suggesting no current or recent infection. Infection due to Streptococcus pneumoniae cannot be ruled out since the antigen present in the sample may be below the detection limit of the test. Assessment and Plan (1) Multifocal atrial tachycardia: Code(s): I47.1 - Supraventricular tachycardia Status: Acute Plan 72-year-old man with h/o diabetes type 2, COPD and a current [facility] local [facility] facility was brought to the hospital for evaluation of worsening shortness of breath and lightheadedness. He was found to have COPD exacerbation, and tachycardia which was determined to be MAT/wondering pacemaker. COPD exacerbation, h/o chronic hypoxic respiratory failure on home Oxygen 3.5 l/ min- Improving Sputum G/S -moderate pleomorphic g+ve rods, culture heavy growth of normal geeta. -Decrease Solu-Medrol to 30 mg every 8 hours continue to taper -continue Mucinex and DuoNeb scheduled and as needed -long-acting beta agonist -Incentive spirometry and Acapella at bedside -aggressive pulmonary toilet -continue usual home oxygen,Maintain oxygen saturation above 92% Hospital-acquired pneumonia with sepsis. Stable negative blood culture, pneumococcal and Legionella urinary antigen repeat sputum studies. Continue Zosyn Right lower lobe PE. Switch to the OAC/Eliquis 10 mg twice a day for 1 week then 5 mg twice a day. Consult case management Left lower lobe nodule. Outpatient PET or repeat chest CT in 3 months T8 vertebral body fracture. Patient without tenderness over T8 area. Multifocal atrial tachycardia- rates much improved,mostly normal. Cardizem switched to 240 mg CD once daily. ECHO-LVEF 50% Appreciate input from cardiology Diabetes type 2-blood glucose uncontrolled, worsened due to steroids. A1c 6.2 started Levemir for better glucose control,increased to 2 25 units in the morning and continue 20 units at bedtime -Hold oral hyperglycemic agents--can resume on discharge -Continue insulin sliding scale with fingerstick blood glucose monitoring. Hyperlipidemia-cont on statin DVT prophylaxis: Lovenox PT to treat and eval--recommend rehab. DISPO-accepted by [facility] when cleared by pulmonary Not stable for discharge
--- NOTE | 2018-07-03 20:08 | P.PNPL ---
Subjective Interval history: 72 YOWM with Severe COPD, HTNmDM maintains sat with [place] CTA showes Rt PE Breathing better Up on the side of the bed Physical Exam Vital signs: Vital Signs 07/02/18 20:33 07/02/18 23:19 07/02/18 23:31 Temperature 97.8 F Pulse Rate 94 H 94 H 98 H Respiratory Rate 18 18 Blood Pressure 122/71 Pulse Oximetry 99 100 07/03/18 03:03 07/03/18 04:10 07/03/18 08:45 Temperature 97.8 F 98.1 F Pulse Rate 102 H 101 H 60 Respiratory Rate 22 24 Blood Pressure 128/72 147/63 H Pulse Oximetry 100 100 07/03/18 09:00 07/03/18 12:00 07/03/18 12:48 Temperature 97.5 F L Pulse Rate 129 H 130 H 59 L Respiratory Rate 16 Blood Pressure 146/67 H Pulse Oximetry 100 07/03/18 16:00 Temperature 98.2 F Pulse Rate 120 H Respiratory Rate 24 Blood Pressure 150/91 H Pulse Oximetry 100 Intake & Output 07/03/18 07/03/18 07/04/18 06:59 18:59 06:59 Intake Total 470 / 470 920 / 920 Output Total 450 / 450 490 / 490 Balance 430 / 430 Weight 69 kg Intake: IV 110 / 110 300 / 300 Zosyn 4.5 GM Premix 4.5 gm In 110 / 110 300 / 300 100 ml @ 200 mls/hr IV.SIG Q6H MARCELINO Rx#:[id number] Oral 360 / 360 620 / 620 Output: Urine 450 / 450 490 / 490 Other: Date of Last Bowel Movement 06/28/18 06/28/18 GENERAL: Elderly WM, mild sob SKIN: Warm and dry. HEAD: Normocephalic. EYES: No scleral icterus. No injection or drainage. NECK: Supple, trachea midline. No JVD or lymphadenopathy. CARDIOVASCULAR: Regular rate and rhythm without murmurs, gallops, or rubs. RESPIRATORY: Breath sounds equal bilaterally. No accessory muscle use. GASTROINTESTINAL: Abdomen soft, non-tender, nondistended. MUSCULOSKELETAL: No cyanosis, or edema. BACK: Nontender without obvious deformity. No CVA tenderness. Assessment and Plan - Plan IMPRESSION: 1. Chronic obstructive pulmonary disease exacerbation. 2. Chronic respiratory insufficiency looks. It looks like he is end-stage chronic obstructive pulmonary disease. 3. Diabetes mellitus. 4. Multifocal atrial tachycardia. 5. Hypertension. 6. R/O PE PLAN: Aerosol nebs Cont Solumedrol Supplement 02 Lovenox 70 mg q 12 hrs Prognosis gaurded
[2018-07-03] MEDS: Morphine Inj 4 MG/ML Vial IV.PUSH PRN (20:36)
[2018-07-04 02:43] LABS: ABG Base Excess -2.7 mmol/L (-2-2); ABG PCO2 44 mmHg (38-42); ABG PO2 124 mmHG (61-120)
[2018-07-04] MEDS: Insulin NovoLOG Aspart Correctional Sugar Inj SQ SCH ×2 (02:46→09:38)
--- NOTE | 2018-07-04 02:56 | P.PNADD ---
Addendum to Inpatient Note Reason for Addendum: Additional Documentation Additional information: He is a 72-year-old male with a history significant for type 2 diabetes and COPD who was admitted for a COPD exacerbation and tachycardia. He was found to have MAT. During the hospitalization he developed a right lower lobe pulmonary embolism and is on anticoagulation. He has been ambulatory over the last couple days. Halicat was called due to a fall and MAP <65 patient had up in order to go to the bathroom. He reports feeling weak. He denies dizziness or lightheadedness. He reports that he did hit the back of his head. He was helped back into bed. He denies current pain in the head. General: laying in Trendelenburg position with head at the foot of the bed, pale , repeat BP with a systolic of 120. Somnolent, but arousable. ENT: Atraumatic, mild dry mucous membranes Neck: Trachea midline Respiratory: Cough present, significant coarse upper respiratory sounds, mildly diminished at the lung bases. Cardiovascular: Tachycardic with regular rhythm without murmur, 2+ pedal pulses , no peripheral edema Abdomen: Bowel sounds present. Soft, non-tender. Neuro: 5/5 strength in all extremities. Follows some commands, but confused. Cranial nerves unable to be adequately tested due to mental status. Psychiatric: Oriented to person, but not place or time. ABG showed hemoglobin of 6.0, pH of 7.32, PCO2 of 44, and PaO2 of 124 on 3 L nasal cannula. Bedside glucose was 390. EKG showed tachycardia, old right bundle branch block, and no acute changes. Assessment and plan: His fall may have been related to his anemia, deconditioning, and low blood pressure. DDX also includes stroke or seizure. He would not be a TPA candidate due to his anticoagulant use. From chart review , he has no know source of bleeding. His neuro exam showed no focal deficits, but he had difficulty following commands and his mental status seems below baseline. He is a [employer] and does not wish to receive blood products. -Stat CBC, CMP, INR, APTT, lactic acid CT brain stat Chest x-ray stat
[2018-07-04 03:18] LABS: Baso % (Auto) 0.1 % (0.0-2.0); Lymph # (Auto) 0.5 th/mm3 (1.0-4.8); Lymph % (Auto) 4.9 % (9.0-44.0); Mean Corpuscular HGB Conc 34.5 % (32.0-36.0); Mean Corpuscular Hemoglobin 30.3 pg (27.0-34.0); Mean Corpuscular Volume 87.7 fL (80.0-100.0); Mean Platelet Volume 7.9 fL (7.0-11.0); Mono # (Auto) 0.3 th/mm3 (0.0-0.9); Mono % (Auto) 3.3 % (0.0-8.0); Neut # (Auto) 9.1 th/mm3 (1.8-7.7); Neut % (Auto) 91.7 % (16.0-70.0); Platelet Count 135 th/mm3 (150-450); Red Blood Count 1.94 mil/mm3 (4.50-5.90); Red Cell Distribution Width 18.2 % (11.6-17.2); White Blood Count 9.9 th/mm3 (4.0-11.0)
[2018-07-04 03:23] LABS: Hemoglobin 5.9 gm/dL (13.0-17.0)
[2018-07-04 03:28] LABS: Activated Partial Thrombo Time 38.8 sec (23.4-31.7); INR 1.6 Ratio; Prothrombin Time 16.4 sec (9.8-11.6)
--- NOTE | 2018-07-04 03:31 | CT ---
EXAM DATE: 07/04/2018 3:04 AM EST AGE/SEX: 72 years / Male INDICATIONS: Altered mental status. CLINICAL DATA: This is the patient's initial encounter. Patient reports that signs and symptoms have been present for 1 day and indicates a pain score of 0/10. MEDICAL/SURGICAL HISTORY: Diabetes mellitus type II. Chronic obstructive pulmonary disease. Cardi ovascular disease. None. RADIATION DOSE: 56.35 CTDI (mGy) COMPARISON: No prior exams available for comparison. TECHNIQUE: CT of the head without contrast. Using automated exposure control and adjustment of the mA and/or kV according to patient size, radiation dose was kept as low as reasonably achievable to ob tain optimal diagnostic quality images. DICOM format image data is available electronically for revi ew and comparison. FINDINGS: Cerebrum: The ventricles are normal for age. No evidence of midline shift, mass lesion, hemorrhage or acute infarction. No extraaxial fluid collections are seen. Posterior Fossa: The cerebellum and brainstem are intact. The 4th ventricle is midline. The cerebe llopontine angle is unremarkable. Extracranial: The visualized portion of the orbits is intact. Skull: The calvaria is intact. No evidence of skull fracture. CONCLUSION: 1. Negative CT Head non contrast. . Electronically signed by: Edward Jimenez MD Board Certified Radiologist 07/04/2018 3:30 AM EST
--- NOTE | 2018-07-04 03:35 | XR ---
EXAM DATE: 07/04/2018 3:12 AM EST AGE/SEX: 72 years / Male INDICATIONS: Short of breath. CLINICAL DATA: This is the patient's initial encounter. Patient reports that signs and symptoms have been present for 1 day and indicates a pain score of Nonresponsive. MEDICAL/SURGICAL HISTORY: . Chronic obstructive pulmonary disease. None. COMPARISON: [facility] [place] PULMONARY W CONTRAST W 3D, 07/01/2018. . FINDINGS: 2 portable frontal views of the chest show calcified pleural plaque involving the left hemithorax. 11 mm nodule projects over the left upper hemithorax that are seen on the recent CT scan. A calcified gr anuloma is seen involving the left lower lobe. No acute infiltrate. Heart is normal in size. Old righ t-sided rib fractures noted. CONCLUSION: 1. No acute intrathoracic abnormality. 2. 11 mm left pulmonary nodule better seen on the recent CT scan. Electronically signed by: Edward Jimenez MD Board Certified Radiologist 07/04/2018 3:34 AM EST
[2018-07-04 03:49] LABS: Lymphocytes 2 % (9-44); Monocytes 1 % (0-8); Myelocytes 1 % (0-0)
[2018-07-04 03:50] LABS: Acanthocytes Occ; Dimorphic RBC Present; Ovalocytes 1+; Platelet Morphology Normal (Normal)
[2018-07-04] MEDS ORDERED: Sod Chloride 0.9% Inj 1,000 ML IV.SIG SCH (04:02)
[2018-07-04 04:37] LABS: Albumin 1.6 g/dL (3.4-5.0); Calcium 6.8 mg/dL (8.5-10.1); Carbon Dioxide 25.6 meq/L (21.0-32.0); Total Protein 3.7 g/dL (6.4-8.2)
[2018-07-04 05:04] VITALS: TEMP 96.9
[2018-07-04] MEDS ORDERED: Albumin Human 5% Inj 500 ML IV.SIG ONE (05:15)
--- NOTE | 2018-07-04 05:15 | P.CONCC ---
History of Present Illness Primary Care Provider: UNKNOWN Chief Complaint: Shortness of breath History of Present Illness: 72-year-old man, claims to be JW, with past medical history of diabetes type 2, COPD and a current resident of a local assisted facility was brought to the hospital for evaluation of worsening symptoms of shortness of breath and lightheadedness neck. While in the ED, patient was found to have sustained heart rate of over 100 for which cardiology was consulted. Patient was also started on Cardizem drip. CTA of the pulmonary arteries shows right pulmonary embolism. The patient was started on anticoagulation with full-dose Lovenox and transitioned to Eliquis last night. He has also been followed by pulmonologists. Today early in the morning he was found to be pale, diaphoretic and hypotensive with hemoglobin level of 5.9. The patient is refusing blood product transfusion due to his advent purposes, however he agreed with albumin infusion. His blood pressure somehow improves with IV fluid hydration and IV albumin. Review of Systems unobtainable due to mental status PMFSH - History History Provided By: Patient - Medical History Medical History: Medical History (Last Reviewed 07/01/18 @ 08:35 by Marialuisa Garcia) Anxiety COPD (chronic obstructive pulmonary disease) - Family History Family History: Family History (Last Reviewed 06/26/18 @ 07:46 by Wolf Hilliard, PT) Other CAD (coronary artery disease) - Tobacco History Second Hand Smoke Exposure: No Tobacco Use In Past 30 Days: No Smoking Status: Former smoker Tobacco Type: Cigarettes - Alcohol History How Often Do You Have a Drink Containing Alcohol: Never - Substance Use History Substance History: No History of Abuse - Travel History Recent Travel in the [place] Within the Last 8 Weeks: No Recent Travel Out of the Country Within the Last 8 Weeks: No - Immunization History Tetanus Immunization: Unsure Medications and Allergies Active Medications: Active Medications Acetaminophen (Tylenol) 650 mg PO Q4H PRN PRN Reason: PAIN 1-10 AND/OR FEVER >101F Last Admin: 06/28/18 18:51 Dose: 650 mg Hydrocodone Bitart/Acetaminophen ([place] 5/325) 1 tab PO Q4H PRN PRN Reason: PAIN SCALE 3 TO 5 Hydrocodone Bitart/Acetaminophen ([place] 10/325) 1 tab PO Q4H PRN PRN Reason: PAIN SCALE 6 TO 10 Last Admin: 07/03/18 11:24 Dose: 1 tab Albuterol (Duoneb Neb (Prn)) 1 ampul INH Q2HR NEB PRN PRN Reason: WHEEZING Last Admin: 07/02/18 20:31 Dose: 1 ampul Apixaban (Eliquis) 10 mg PO BID [facility] Last Admin: 07/03/18 20:27 Dose: 10 mg Aspirin (Ecotrin) 81 mg PO DAILY [facility] Last Admin: 07/03/18 11:02 Dose: 81 mg Atorvastatin Calcium (Lipitor) 20 mg PO QPM [facility] Last Admin: 07/03/18 17:40 Dose: 20 mg Benzonatate (Tessalon Perles) 100 mg PO TID [facility] Last Admin: 07/03/18 17:40 Dose: 100 mg Chlorhexidine Gluconate (Chlorhexidine 2% Cloth) 3 pack TOPICAL DAILY@0400 PRN PRN Reason: Extra cloth needed Stop: 07/10/18 03:59 Chlorhexidine Gluconate (Chlorhexidine 2% Cloth) 3 pack TOPICAL DAILY@0400 MARCELINO Stop: 07/10/18 03:59 Dextrose (D50w Vial) 50 ml IV.PUSH UNSCH PRN PRN Reason: PER HYPOGLYCEMIA PROTOCOL Diltiazem HCl (Cardizem Cd 24hr) 240 mg PO DAILY [facility] Last Admin: 07/03/18 11:02 Dose: 240 mg Fluticasone/Vilanterol (Breo Ellipta 200/25 Mcg Inh) 1 puff INH DAILY [facility] Last Admin: 07/03/18 11:02 Dose: 1 puff Glucagon (Glucagon Inj) 1 mg OTHER PRN PRN PRN Reason: for Hypoglycemia Protocol Guaifenesin (Mucinex Er) 600 mg PO BID [facility] Last Admin: 07/03/18 20:27 Dose: 600 mg Piperacillin/Tazobactam/Dextrose (Zosyn 4.5 Gm Premix) 4.5 gm in 100 mls @ 200 mls/hr IV.SIG Q6H [facility] Last Infusion: 07/04/18 00:34 Dose: Infused Albumin Human (Alburx 5% Inj) 500 mls @ 250 mls/hr IV.SIG ONCE ONE Stop: 07/04/18 07:14 Insulin Aspart (Novolog Insulin Correctional Sugar Inj) 0 unit SQ ACHS AND 3AM MARCELINO; Protocol Last Admin: 07/04/18 02:46 Dose: 5 unit Insulin Detemir (Levemir Inj) 20 unit SQ HS [facility] Last Admin: 07/03/18 20:38 Dose: 20 unit Insulin Detemir (Levemir Inj) 25 unit SQ DAILYAC [facility] Last Admin: 07/03/18 08:01 Dose: 25 unit Lactobacillus Acidophilus (Lactinex) 1 tab PO DAILY [facility] Last Admin: 07/03/18 11:02 Dose: 1 tab Lidocaine HCl (Lidoderm 5% Patch.12 Hr) 1 patch T-DERMAL DAILY [facility] Last Admin: 07/03/18 11:25 Dose: 1 patch Lorazepam (Ativan) 0.5 mg PO BID [facility] Last Admin: 07/03/18 20:27 Dose: 0.5 mg Methylprednisolone Sodium Succinate (Solumedrol Inj) 30 mg IV.PUSH Q8HR [facility] Last Admin: 07/03/18 23:57 Dose: 30 mg Morphine Sulfate (Morphine Inj) 2 mg IV.PUSH Q3H PRN PRN Reason: BREAKTHROUGH PAIN Last Admin: 07/03/18 20:36 Dose: 2 mg Naloxone HCl (Narcan Inj) 0.4 mg IV.PUSH UNSCH PRN PRN Reason: SEE LABEL COMMENTS Patch Removal (Remove Old Patch) 1 each T-DERMAL HS [facility] Last Admin: 07/03/18 20:39 Dose: 1 each Patient Own Medication:( Umeclidinium [ Incruse Ellipta] 1 Inh) 0 each INH DAILY [facility] Last Admin: 07/03/18 11:16 Dose: Not Given Prednisone (Deltasone) 10 mg PO DAILY [facility] Last Admin: 06/23/18 08:32 Dose: 10 mg Quetiapine Fumarate (Seroquel) 300 mg PO [facility] Last Admin: 07/03/18 20:27 Dose: 300 mg Sodium Chloride (Ns Flush) 2 ml IV.FLUSH PRN PRN PRN Reason: FLUSH AFTER USING IV ACCESS Last Admin: 07/02/18 23:12 Dose: 2 ml Sodium Chloride (Ns Flush) 2 ml IV.FLUSH BID [facility] Last Admin: 07/03/18 20:29 Dose: 2 ml Allergies Allergy/AdvReac Type Severity Reaction Status Date / Time No Known Allergies Allergy Verified 06/22/18 01:08 Home Medications Medication Instructions Recorded Confirmed Type Lactobacillus acidophilus 1,000 mmu cells PO DAILY 06/22/18 06/22/18 History aspirin [Aspir-81] 81 mg PO DAILY 06/22/18 06/22/18 History atorvastatin 20 mg PO QPM 06/22/18 06/22/18 History benzonatate 100 mg PO TID 06/22/18 06/22/18 History fluticasone-vilanterol [Breo 1 inh INHALATION DAILY 06/22/18 06/22/18 History Ellipta] ipratropium-albuterol 3 ml INHALATION Q4HR PRN 06/22/18 06/22/18 History levofloxacin 750 mg PO DAILY 06/22/18 06/22/18 History lorazepam [Ativan] 1 mg PO BID 06/22/18 06/22/18 History metformin 500 mg PO DAILY 06/22/18 06/22/18 History montelukast 10 mg PO QPM 06/22/18 06/22/18 History morphine 10 mg PO Q4HR PRN 06/22/18 06/22/18 History omega-3 acid ethyl esters [Lovaza] 2 cap PO BID 06/22/18 06/22/18 History prednisone 10 mg PO DAILY 06/22/18 06/22/18 History quetiapine [Seroquel] 300 mg PO HS 06/22/18 06/22/18 History umeclidinium [Incruse Ellipta] 1 inh INHALATION DAILY 06/22/18 06/22/18 History Physical Exam Vital signs: Vital Signs 07/03/18 08:45 07/03/18 09:00 07/03/18 12:00 Temperature 98.1 F Pulse Rate 60 129 H 130 H Respiratory Rate 24 Blood Pressure 147/63 H Pulse Oximetry 100 07/03/18 12:48 07/03/18 16:00 07/03/18 20:05 Temperature 97.5 F L 98.2 F 98.3 F Pulse Rate 59 L 120 H 119 H Respiratory Rate 16 24 26 H Blood Pressure 146/67 H 150/91 H 101/58 L Pulse Oximetry 100 100 95 07/03/18 20:38 07/03/18 20:48 07/03/18 23:50 Temperature 98.2 F Pulse Rate 104 H 121 H Respiratory Rate 18 21 Blood Pressure 92/54 L Pulse Oximetry 100 07/04/18 00:00 07/04/18 02:15 07/04/18 03:51 Temperature Pulse Rate 120 H 105 H Respiratory Rate Blood Pressure Pulse Oximetry 99 07/04/18 04:30 07/04/18 04:34 07/04/18 04:45 Temperature 96.9 F L Pulse Rate 109 H 109 H 100 H Respiratory Rate 26 H 35 H 26 H Blood Pressure 113/56 L 101/51 L Pulse Oximetry 96 97 Intake & Output 07/03/18 07/03/18 07/04/18 06:59 18:59 06:59 Intake Total 470 / 470 920 / 920 100 / 100 Output Total 450 / 450 490 / 490 125 / 125 Balance 430 / 430 -25 / -25 Weight 69 kg 71 kg Intake: IV 110 / 110 300 / 300 100 / 100 Zosyn 4.5 GM Premix 4.5 gm In 110 / 110 300 / 300 100 / 100 100 ml @ 200 mls/hr IV.SIG Q6H MARCELINO Rx#:[id number] Oral 360 / 360 620 / 620 Output: Urine 450 / 450 490 / 490 125 / 125 Other: Date of Last Bowel Movement 06/28/18 06/28/18 06/28/18 Weight On Admission 71 kg - Constitutional moderate distress, chronically ill appearing, somnolent, obtunded - Routine HEENT Exam Head: Present: atraumatic Eye: Present: PERRL ENT: Present: mucous membranes dry - Routine Neck Exam Absent: JVD, carotid bruit - Routine Respiratory Exam Absent: accessory muscle use, rales, rhonchi - Routine Cardiovascular Exam Present: RRR, S1, S2 - Routine Abdominal Exam Present: soft, normoactive bowel sounds - Routine Extremities Exam Absent: cyanosis, clubbing, edema - Routine Skin Exam Present: intact. Absent: cyanosis, erythema - Routine Neurological Exam Present: altered mental status, moving all extremities Septic Shock Reassessment Septic shock perfusion: reassessment completed Assessment and Plan - Assessment and Plan Plan: Hypotension -Possible blood loss -Patient has been refusing blood products -Crystalloids IV volume replacement -Agrees with IV albumin -Temporarily improving Anemia -Protonix IV twice daily -Occult stool blood pending -Hold Eliquis and antiplatelet or anticoagulation Pulmonary embolism -Hold Eliquis due to severe anemia and possible bleed -Pulmonary consultation appreciated COPD -DuoNeb scheduled and as needed -Methylprednisolone -Further per instructional technology director Dyslipidemia -Atorvastatin Atrial fibrillation -Diltiazem -Hold if hypotensive Diabetes mellitus -Levemir -Insulin sliding scale Depression -Quetiapine DVT GI prophylaxis -Teds SCDs -Hold pharmacological DVT prophylaxis due to severe anemia -Protonix IV twice daily Level 2
[2018-07-04] MEDS: MethylPREDNISolone Sod Succinate Inj 40 MG/ML Vial IV.PUSH SCH ×2 (05:28→14:34)
[2018-07-04] MEDS: Piperacil/Tazo 4.5 GM Premix 4.5 GM/100 ML BAG IV.SIG SCH (05:29)
[2018-07-04] MEDS ORDERED: Pantoprazole Inj 40 MG Vial IV.PUSH SCH (06:00)
[2018-07-04] MEDS: Lactobacillus Acidophilus/L. Spores Tablet PO SCH (09:37)
[2018-07-04] MEDS: LORazepam 0.5 MG Tablet PO SCH (09:37)
[2018-07-04] MEDS: Benzonatate 100 MG Capsule PO SCH (09:37)
[2018-07-04] MEDS: guaiFENesin 600 MG ER Tablet PO SCH (09:37)
[2018-07-04] MEDS: Insulin Detemir Inj 1,000 UNIT/10 ML Vial SQ SCH (09:37)
[2018-07-04] MEDS: dilTIAZem CD 240 MG Capsule PO SCH (09:37)
[2018-07-04] MEDS: Lidocaine 5% Patch T-DERMAL SCH (09:38)
[2018-07-04] MEDS: UMECLIDINIUM INH SCH (09:39)
--- NOTE | 2018-07-04 11:03 | P.PNCC ---
Subjective Subjective Remarks/Hospital Course: 07/04: Sister POA, sister at bedside. Providing more information on the patient. The patient was previously on home hospice at a [facility] facility. Inquiry at this point regarding resuming home hospice and family requesting a palliative care consult. The patient upon my arrival appears extremely lethargic Seroquel has been held morphine and scheduled Ativan and also remains on hold. Lactic acid significantly elevated, 4.5 however WBC count 9.9. The patient has been on steroids. The patient continues on Zosyn at this time repeat lactic acid pending. Sputum culture revealed gram-negative rods, will consult ID. Hemoglobin noted to be 5.6 patient due to episcopal reasons does not want blood transfusion at this time, remains tachypneic, but normotensive. Hematology has been consulted. Extensive discussion with patient's POA sister Ms. Le and patient's 2 children all at bedside. They are requesting possible transport to [facility] facility in [place] at this time. Case management has been consulted awaiting information regarding placement from [facility]. The patient continues to be tachypneic 30's, but normotensive tachycardic heart rate 113. The patient's code status was changed to DNR/DNI at request of the patient's POA , sister and 2 children. 1351-The patient was noted to hypotensive SBP's 60's. I discussed with family and their desire is to make patient comfortable, and conservative measures only- no vasopressor support.They were informed that the patient is too unstable for travel to [facility]. I discussed with case management, patient unable to transport. Objective Vital Signs / I&O: Vital Signs 07/03/18 12:00 07/03/18 12:48 07/03/18 16:00 Temperature 97.5 F L 98.2 F Pulse Rate 130 H 59 L 120 H Respiratory Rate 16 24 Blood Pressure 146/67 H 150/91 H Pulse Oximetry 100 100 07/03/18 20:05 07/03/18 20:38 07/03/18 20:48 Temperature 98.3 F Pulse Rate 119 H 104 H Respiratory Rate 26 H 18 Blood Pressure 101/58 L Pulse Oximetry 95 07/03/18 23:50 07/04/18 00:00 07/04/18 02:15 Temperature 98.2 F Pulse Rate 121 H 120 H Respiratory Rate 21 Blood Pressure 92/54 L 78/31 L Pulse Oximetry 100 99 07/04/18 02:16 07/04/18 02:17 07/04/18 02:20 Temperature Pulse Rate Respiratory Rate Blood Pressure 86/41 L 134/42 L 121/48 L Pulse Oximetry 99 07/04/18 02:25 07/04/18 02:30 07/04/18 02:35 Temperature Pulse Rate 107 H Respiratory Rate Blood Pressure 98/49 L 120/52 L 114/51 L Pulse Oximetry 07/04/18 02:37 07/04/18 02:41 07/04/18 03:51 Temperature Pulse Rate 110 H 105 H Respiratory Rate Blood Pressure 119/55 L 107/53 L Pulse Oximetry 100 07/04/18 04:01 07/04/18 04:03 07/04/18 04:30 Temperature Pulse Rate 104 H 109 H Respiratory Rate 23 26 H Blood Pressure 74/38 L 89/39 L Pulse Oximetry 99 07/04/18 04:34 07/04/18 04:45 07/04/18 05:00 Temperature 96.9 F L Pulse Rate 109 H 100 H 99 H Respiratory Rate 35 H 26 H 16 Blood Pressure 113/56 L 101/51 L 96/45 L Pulse Oximetry 96 97 99 07/04/18 05:15 07/04/18 05:30 07/04/18 05:45 Temperature Pulse Rate 99 H 107 H 102 H Respiratory Rate 16 29 H 24 Blood Pressure 87/51 L 103/51 L 91/52 L Pulse Oximetry 100 100 100 07/04/18 06:00 07/04/18 06:15 07/04/18 06:30 Temperature Pulse Rate 101 H 104 H 100 H Respiratory Rate 29 H 29 H 23 Blood Pressure 93/53 L 131/59 L 116/58 L Pulse Oximetry 99 96 97 07/04/18 06:44 07/04/18 07:00 07/04/18 08:22 Temperature Pulse Rate 99 H 95 H Respiratory Rate 22 15 Blood Pressure 117/58 L 97/53 L Pulse Oximetry 100 100 100 Intake & Output 07/03/18 07/04/18 07/04/18 18:59 06:59 18:59 Intake Total 920 / 920 1200 / 1200 500 / 500 Output Total 490 / 490 125 / 125 Balance 430 / 430 1075 / 1075 500 / 500 Weight 68.5 kg Intake: IV 300 / 300 1200 / 1200 500 / 500 Alburx 5% Inj 500 ML @ 250 mls/ 500 / 500 hr IV.SIG ONCE ONE Rx#:[id number] Zosyn 4.5 GM Premix 4.5 gm In 300 / 300 200 / 200 100 ml @ 200 mls/hr IV.SIG Q6H MARCELINO Rx#:[id number] NS Inj 1,000 ML @ 1000 mls/hr 1000 / 1000 IV.SIG BOLUS MARCELINO Rx#:[id number] Oral 620 / 620 Output: Urine 490 / 490 125 / 125 Stool 0 / 0 Other: Date of Last Bowel Movement 06/28/18 06/28/18 Weight On Admission 71 kg Result Diagrams: 07/04/18 02:57 07/04/18 02:57 Other Results: Laboratory Results WBC 9.9 th/mm3 (4.0-11.0) 07/04/18 02:57 RBC 1.94 mil/mm3 (4.50-5.90) L 07/04/18 02:57 Hgb 5.9 gm/dL (13.0-17.0) L* 07/04/18 02:57 Hct 17.0 % (39.0-51.0) L* 07/04/18 02:57 MCV 87.7 fL (80.0-100.0) 07/04/18 02:57 MCH 30.3 pg (27.0-34.0) 07/04/18 02:57 MCHC 34.5 % (32.0-36.0) 07/04/18 02:57 RDW 18.2 % (11.6-17.2) H 07/04/18 02:57 Plt Count 135 th/mm3 (150-450) L 07/04/18 02:57 MPV 7.9 fL (7.0-11.0) 07/04/18 02:57 Prelim Diff (Auto) Slide review pending 07/04/18 02:57 Neut % (Auto) 91.7 % (16.0-70.0) H 07/04/18 02:57 Lymph % (Auto) 4.9 % (9.0-44.0) L 07/04/18 02:57 [place] % (Auto) 3.3 % (0.0-8.0) 07/04/18 02:57 Eos % (Auto) 0.0 % (0.0-4.0) 07/04/18 02:57 Baso % (Auto) 0.1 % (0.0-2.0) 07/04/18 02:57 Neut # (Auto) 9.1 th/mm3 (1.8-7.7) H 07/04/18 02:57 Lymph # (Auto) 0.5 th/mm3 (1.0-4.8) L 07/04/18 02:57 [place] # (Auto) 0.3 th/mm3 (0.0-0.9) 07/04/18 02:57 Eos # (Auto) 0.0 th/mm3 (0.0-0.4) 07/04/18 02:57 Baso # (Auto) 0.0 th/mm3 (0.0-0.2) 07/04/18 02:57 WBC Differential Manual diff final 07/04/18 02:57 Seg Neuts % (Manual) 95 % (16-70) H 07/04/18 02:57 Band Neuts % (Manual) 1 % (0-6) 07/04/18 02:57 Lymphocytes % (Manual) 2 % (9-44) L 07/04/18 02:57 Monocytes % (Manual) 1 % (0-8) 07/04/18 02:57 Myelocytes % (Man) 1 % (0-0) H 07/04/18 02:57 Abs Neuts (Manual) 9.6 th/mm3 (1.8-7.7) H 07/04/18 02:57 Differential Comment . 07/04/18 02:57 Platelet Estimate Low (Normal) L 07/04/18 02:57 Platelet Morphology Normal (Normal) 07/04/18 02:57 Dimorphic RBCs Present (None) H 07/04/18 02:57 Ovalocytes 1+ (None) H 07/04/18 02:57 Acanthocytes (Spur) Occ (None) H 07/04/18 02:57 Keratocytes Occ (None) H 07/04/18 02:57 PT 16.4 sec (9.8-11.6) H 07/04/18 02:57 INR 1.6 Ratio 07/04/18 02:57 APTT 38.8 sec (23.4-31.7) H 07/04/18 02:57 Puncture Site Right radial 07/04/18 02:35 Patient Temperature 98.6 07/04/18 02:35 O2 Saturation 95 % (90-100) 07/04/18 02:35 ABG pH 7.32 (7.380-7.420) L 07/04/18 02:35 ABG pCO2 44 mmHg (38-42) H 07/04/18 02:35 ABG pO2 124 mmHG (61-120) H 07/04/18 02:35 ABG HCO3 22 mmol/L (22-26) 07/04/18 02:35 ABG O2 Content 8.3 Vol % (12.0-20.0) L 07/04/18 02:35 ABG Base Excess -2.7 mmol/L (-2-2) L 07/04/18 02:35 ABG Methemoglobin 1.7 % (0-2) 07/04/18 02:35 Shoaib Test Present 07/04/18 02:35 Hemoglobin 6.0 G/DL (12.0-16.0) L* 07/04/18 02:35 Carboxyhemoglobin 1.7 % (0-4) 07/04/18 02:35 O2 Delivery Device Nasal cannula 07/04/18 02:35 Liter Flow 3.00 L/M 07/04/18 02:35 Critical Value Yes 07/04/18 02:35 Sodium 135 meq/L (136-145) L 07/04/18 02:57 Potassium 6.0 meq/L (3.5-5.1) H D 07/04/18 02:57 Chloride 100 meq/L (98-107) 07/04/18 02:57 Carbon Dioxide 25.6 meq/L (21.0-32.0) D 07/04/18 02:57 Anion Gap 9 meq/L (5-15) 07/04/18 02:57 BUN 94 mg/dL (7-18) H 07/04/18 02:57 Creatinine 1.29 mg/dL (0.60-1.30) 07/04/18 02:57 Estimated GFR 55 mL/min (>89) L 07/04/18 02:57 POC Glucose 317 mg/dl (68-110) H 07/04/18 08:54 Random Glucose 309 mg/dL (74-106) H D 07/04/18 02:57 Hemoglobin A1c 6.2 % (4.3-6.0) H 06/29/18 12:30 Lactic Acid 4.9 mmol/L (0.4-2.0) H* 07/04/18 02:57 Calcium 6.8 mg/dL (8.5-10.1) L* D 07/04/18 02:57 Calcium Adj for Albumin 8.7 mg/dL (8.5-10.1) 07/04/18 02:57 Magnesium 1.9 mg/dL (1.5-2.5) 06/24/18 08:24 Total Bilirubin 0.3 mg/dL (0.2-1.0) 07/04/18 02:57 AST 23 U/L (15-37) 07/04/18 02:57 ALT 33 U/L (12-78) 07/04/18 02:57 Alkaline Phosphatase 34 U/L (45-117) L 07/04/18 02:57 Total Creatine Kinase 36 U/L (39-308) L 06/22/18 01:26 Troponin I 0.02 ng/mL (0.02-0.05) 06/22/18 01:26 B-Natriuretic Peptide 59 pg/mL (0-100) 06/22/18 01:26 Total Protein 3.7 g/dL (6.4-8.2) L 07/04/18 02:57 Albumin 1.6 g/dL (3.4-5.0) L 07/04/18 02:57 Nasal Screen MRSA (PCR) Mrsa not detected (Negative) 07/04/18 04:[address] 06/30/18 00:00 CONCLUSION: 1. Possible right lower lobe pulmonary emboli. Recommend a follow-up CTA to evaluate for pulmonary embolus. 2. 1 cm superior segment left lower lobe noncalcified pulmonary nodule. This finding is indeterminate. If no comparison chest CT examinations are available to establish stability, routine outpatient PET/CT examination is recommended. 3. Age-indeterminate moderate severity T8 vertebral body compression fracture. No evidence of bony retropulsion. 4. Mild pulmonary emphysema. 5. Postsurgical findings versus scarring in the left upper lung. 6. Old granulomatous disease. 7. Atelectasis versus scarring in the right lower lobe inferiorly. Chest CTA 07/01/18 00:00 CONCLUSION: 1. Right lower lobe pulmonary embolus. 2. Right basilar consolidation. 3. Emphysema and left lung nodule. PET/CT scan recommended. Chest X-Ray 07/04/18 00:00 CONCLUSION: 1. No acute intrathoracic abnormality. 2. 11 mm left pulmonary nodule better seen on the recent CT scan. Head CT 07/04/18 00:00 CONCLUSION: 1. Negative CT Head non contrast. . Objective Remarks: GENERAL: This is a well-developed obese male in a moderate amount of distress Respiratory rate 32 on nasal cannula SKIN: Warm and dry. HEAD: Atraumatic. Normocephalic. EYES: Pupils equal and round. No scleral icterus. No injection or drainage. ENT: No nasal bleeding or discharge. Mucous membranes pink and moist. NECK: Trachea midline. No JVD. Nasal cannula at 3 L/min CARDIOVASCULAR: Normal rate, irregular rhythm. RESPIRATORY: Accessory muscle use. Mild expiratory wheeze. Breath sounds equal bilaterally. GASTROINTESTINAL: Abdomen soft, non-tender, nondistended. No guarding. MUSCULOSKELETAL: Extremities without clubbing, cyanosis, or edema. No obvious deformities. NEUROLOGICAL: Lethargic but easily arousable. RASS 0. No gross focal/sensory deficits. Follows commands in all 4 extremities. Assessment and Plan - Assessment and Plan Plan: Hypotension-resolved -Possible blood loss -Patient has been refusing blood products -Crystalloids IV volume replacement -Agrees with IV albumin Anemia -Protonix IV twice daily -Occult stool blood pending -Hold Eliquis and antiplatelet or anticoagulation -Hematology consult -Use pediatric tubes for lab draws to minimize blood loss Lactic acidemia -Sputum culture revealed gram-negative rods, currently on Zosyn -Consult infectious disease -Follow-up lactic acid, trend -Obtain influenza A/B Pulmonary embolism -Hold Eliquis due to severe anemia and possible bleed -Pulmonary following-Dr. Tobin COPD -DuoNeb scheduled and as needed -Methylprednisolone -Further per can top setter Dyslipidemia -Atorvastatin Atrial fibrillation-rate control -Diltiazem -Hold if hypotensive Diabetes mellitus -Resume Levemir-blood glucose levels in the 300s, has been held -Insulin sliding scale Depression -Quetiapine-hold for now Pain/anxiety -Daily lethargic hold Seroquel discontinue morphine and hold Ativan DVT GI prophylaxis -Teds SCDs -Hold pharmacological DVT prophylaxis due to severe anemia -Protonix IV twice daily Level 2 follow-up Family at bedside this a.m. discussion regarding patient updated that patient is normally on home hospice with [facility]. Will consult palliative medicine will consult [facility] to define goals of treatment Discussed Condition With: CUPOLA TAPPER
--- NOTE | 2018-07-04 11:14 | P.CONPAL ---
Consult Service: Palliative Care Requesting Physician: Bee Martinez Reason for Consult: a. To assist with evaluation and management of symptoms including: dyspnea, anxiety b. To assist medical decision maker(s) with: better understanding of current medical conditions; weighing benefits/burdens of medical treatment options; making medical treatment decisions. Primary Care Provider: UNKNOWN History of Present Illness History of Present Illness: This 72-year-old man presented to the ED on 06/22/18 with complaints of shortness of breath, via EMS (from [facility]). Unable to provide additional history due to severity of shortness of breath. Noted to be A. fib RVR upon arrival. Known history of COPD, diabetes, hyperlipidemia. * ED CXR notes chronic scarring and parenchymal interstitial changes no acute process. * Cardiology was consulted for A. fib: Patient be started on oral Cardizem. EKG suggestive of multifocal atrial tachycardia which may be precipitated by underlying lung disease. No evidence acute coronary syndrome or CHF. Echo pending. Continue daily aspirin. Repeat EKG. * 2D echo 06/24 left ventricular systolic function mildly reduced EF 50% limited left jugular wall motion assessment due to poor visualization. Small left-sided pleural effusion. * 1/2 ongoing aggressive pulmonary toilet, requiring increased insulin due to steroids. Slight improvement in shortness of breath. * 1/3 working with PT out of bed ambulating short distance with O2 tank short of breath with minimal distance per poor endurance recommended for PT at rehab. Preparations for discharge back to facility. * 1/5 patient indicating he does not want to go to previous facility that he was at. * 1/6 CT chest with possible PE, started on Lovenox, pulmonology consulted: 1. Possible right lower lobe pulmonary emboli. Recommend a follow-up CTA to evaluate for pulmonary embolus. 2. 1 cm superior segment left lower lobe noncalcified pulmonary nodule. This finding is indeterminate. If no comparison chest CT examinations are available to establish stability, routine outpatient PET/CT examination is recommended. 3. Age-indeterminate moderate severity T8 vertebral body compression fracture. No evidence of bony retropulsion. 4. Mild pulmonary emphysema. 5. Postsurgical findings versus scarring in the left upper lung. 6. Old granulomatous disease. 7. Atelectasis versus scarring in the right lower lobe inferiorly. * Pulmonology notes chronic COPD exacerbation, respiratory insufficiency likely secondary end-stage COPD. Further noted that patient previously on hospice. Continue medical treatments. Chest CTA: Right lower lobe pulmonary embolus, right basilar consolidation, emphysema left lung nodule PET scan recommended. Recommended for repeat chest imaging to follow lung nodule in 3 months. Reports low back has been bothering him for weeks though not tender in T8. Wants to go home. Has been accepted by [facility] for rehab. * 07/03 lethargic in bed reluctant to participate with PT. Declines to get out of bed. * 07/04 [facility] was called due to patient being found pale, diaphoretic with hypotension hemoglobin 5.9. Refusing blood products secondary to [employer]. He did agree to albumin. Transferred to ICU. * Palliative care and hospice consulted to assist with clarification of goals of medical treatment. Pt initially seen briefly, sister Tami present-upon introduction to palliative services she indicates she is thankful for consultation however family wishes to proceed with hospice care center and does not require further palliative intervention. She shares that patient was formally under hospice services and they wish to resume this for comfort treatment only. Briefly explore with her hospital course and diagnoses and that they have understanding of conditions. She verbalizes yes and endorses patient and family with comfort oriented goals. ---[id number] I was later notified by critical care and nurse that pt condition deteriorating , and not felt to be able to survive transport to [facility]. Family now requesting comfort here in hospital. Patient again seen in room multiple family members at bedside. Review with Tami and family available patients designated decision maker status. Prescription indicates she had been serving as proxy while he was on hospice services however he does not have written documentation. He has 4 adult children 2 of whom he is remains fairly estranged from. 2 of the other adult children are present today Jovon Vasquez. Review of [place] statutes and legal decision makers, they are trying to reach other 2 adult children. Christina Garrett, and Jovon who are here indicate they wish to proceed with hospice based on patient known wishes, and patient's previous election of hospice services. They were able to reach estranged son Kathe Le on the phone I spoke with him directly he indicated that he would agree with what ever his 2 other involved siblings Christina and Jovon decided that he did not wish to make decisions. They were later able to reach other son Eric Le Junior whom I spoke with, and also expressed the same, that he did not wish to make decisions but would agree with what ever the other siblings and Tami decided. Patient at this time is nonresponsive to exam. Episodes of tachypnea alternating with apnea. Function/Cognitive Trajectory: most recently at rehab short term, prev lived at home w family, under hospice services. [facility] - History History Provided By: Patient - Medical History Medical History: Medical History (Last Updated 07/04/18 @ 15:59 by LATOYA Méndez) Anxiety COPD (chronic obstructive pulmonary disease) Hyperlipidemia - Surgical History Surgical History: Surgical History (Last Updated 07/04/18 @ 16:00 by LATOYA Méndez) H/O tracheostomy - Family History Family History: Family History (Last Reviewed 06/26/18 @ 07:46 by Wolf Hilliard, PT) Other CAD (coronary artery disease) - Tobacco History Second Hand Smoke Exposure: No Tobacco Use In Past 30 Days: No Smoking Status: Former smoker Tobacco Type: Cigarettes - Alcohol History How Often Do You Have a Drink Containing Alcohol: Never - Substance Use History Substance History: No History of Abuse - Travel History Recent Travel in the [place] Within the Last 8 Weeks: No Recent Travel Out of the Country Within the Last 8 Weeks: No - Immunization History Tetanus Immunization: Unsure Medications and Allergies Active Medications: Active Medications Acetaminophen (Tylenol) 650 mg PO Q4H PRN PRN Reason: PAIN 1-10 AND/OR FEVER >101F Last Admin: 06/28/18 18:51 Dose: 650 mg Hydrocodone Bitart/Acetaminophen ([place] 5/325) 1 tab PO Q4H PRN PRN Reason: PAIN SCALE 3 TO 5 Hydrocodone Bitart/Acetaminophen ([place] 10/325) 1 tab PO Q4H PRN PRN Reason: PAIN SCALE 6 TO 10 Last Admin: 07/03/18 11:24 Dose: 1 tab Albuterol (Duoneb Neb (Prn)) 1 ampul INH Q2HR NEB PRN PRN Reason: WHEEZING Last Admin: 07/02/18 20:31 Dose: 1 ampul Apixaban (Eliquis) 10 mg PO BID [facility] Last Admin: 07/03/18 20:27 Dose: 10 mg Aspirin (Ecotrin) 81 mg PO DAILY [facility] Last Admin: 07/04/18 09:37 Dose: 81 mg Atorvastatin Calcium (Lipitor) 20 mg PO QPM [facility] Last Admin: 07/03/18 17:40 Dose: 20 mg Benzonatate (Tessalon Perles) 100 mg PO TID [facility] Last Admin: 07/04/18 09:37 Dose: 100 mg Chlorhexidine Gluconate (Chlorhexidine 2% Cloth) 3 pack TOPICAL DAILY@0400 PRN PRN Reason: Extra cloth needed Stop: 07/10/18 03:59 Chlorhexidine Gluconate (Chlorhexidine 2% Cloth) 3 pack TOPICAL DAILY@0400 MARCELINO Stop: 07/10/18 03:59 Dextrose (D50w Vial) 50 ml IV.PUSH UNSCH PRN PRN Reason: PER HYPOGLYCEMIA PROTOCOL Diltiazem HCl (Cardizem Cd 24hr) 240 mg PO DAILY [facility] Last Admin: 07/04/18 09:37 Dose: 240 mg Fluticasone/Vilanterol (Breo Ellipta 200/25 Mcg Inh) 1 puff INH DAILY [facility] Last Admin: 07/04/18 09:38 Dose: 1 puff Glucagon (Glucagon Inj) 1 mg OTHER PRN PRN PRN Reason: for Hypoglycemia Protocol Guaifenesin (Mucinex Er) 600 mg PO BID [facility] Last Admin: 07/04/18 09:37 Dose: 600 mg Piperacillin/Tazobactam/Dextrose (Zosyn 4.5 Gm Premix) 4.5 gm in 100 mls @ 200 mls/hr IV.SIG Q6H [facility] Last Infusion: 07/04/18 06:50 Dose: Infused Insulin Aspart (Novolog Insulin Correctional Sugar Inj) 0 unit SQ ACHS AND 3AM MARCELINO; Protocol Last Admin: 07/04/18 09:38 Dose: 7 unit Insulin Detemir (Levemir Inj) 20 unit SQ HS [facility] Last Admin: 07/03/18 20:38 Dose: 20 unit Insulin Detemir (Levemir Inj) 25 unit SQ DAILYAC [facility] Last Admin: 07/04/18 09:37 Dose: 25 unit Lactobacillus Acidophilus (Lactinex) 1 tab PO DAILY [facility] Last Admin: 07/04/18 09:37 Dose: 1 tab Lidocaine HCl (Lidoderm 5% Patch.12 Hr) 1 patch T-DERMAL DAILY [facility] Last Admin: 07/04/18 09:38 Dose: 1 patch Methylprednisolone Sodium Succinate (Solumedrol Inj) 30 mg IV.PUSH Q8HR [facility] Last Admin: 07/04/18 05:28 Dose: 30 mg Morphine Sulfate (Morphine Inj) 2 mg IV.PUSH Q3H PRN PRN Reason: BREAKTHROUGH PAIN Last Admin: 07/03/18 20:36 Dose: 2 mg Naloxone HCl (Narcan Inj) 0.4 mg IV.PUSH UNSCH PRN PRN Reason: SEE LABEL COMMENTS Pantoprazole Sodium (Protonix Inj) 40 mg IV.PUSH Q12H [facility] Last Admin: 07/04/18 09:37 Dose: 40 mg Patch Removal (Remove Old Patch) 1 each T-DERMAL HS [facility] Last Admin: 07/03/18 20:39 Dose: 1 each Patient Own Medication:( Umeclidinium [ Incruse Ellipta] 1 Inh) 0 each INH DAILY [facility] Last Admin: 07/04/18 09:39 Dose: Not Given Prednisone (Deltasone) 10 mg PO DAILY [facility] Last Admin: 06/23/18 08:32 Dose: 10 mg Quetiapine Fumarate (Seroquel) 300 mg PO HS [facility] Last Admin: 07/03/18 20:27 Dose: 300 mg Sodium Chloride (Ns Flush) 2 ml IV.FLUSH PRN PRN PRN Reason: FLUSH AFTER USING IV ACCESS Last Admin: 07/02/18 23:12 Dose: 2 ml Sodium Chloride (Ns Flush) 2 ml IV.FLUSH BID [facility] Last Admin: 07/04/18 09:38 Dose: 2 ml Allergies Allergy/AdvReac Type Severity Reaction Status Date / Time No Known Allergies Allergy Verified 06/22/18 01:08 Home Medications Medication Instructions Recorded Confirmed Type Lactobacillus acidophilus 1,000 mmu cells PO DAILY 06/22/18 06/22/18 History aspirin [Aspir-81] 81 mg PO DAILY 06/22/18 06/22/18 History atorvastatin 20 mg PO QPM 06/22/18 06/22/18 History benzonatate 100 mg PO TID 06/22/18 06/22/18 History fluticasone-vilanterol [Breo 1 inh INHALATION DAILY 06/22/18 06/22/18 History Ellipta] ipratropium-albuterol 3 ml INHALATION Q4HR PRN 06/22/18 06/22/18 History levofloxacin 750 mg PO DAILY 06/22/18 06/22/18 History lorazepam [Ativan] 1 mg PO BID 06/22/18 06/22/18 History metformin 500 mg PO DAILY 06/22/18 06/22/18 History montelukast 10 mg PO QPM 06/22/18 06/22/18 History morphine 10 mg PO Q4HR PRN 06/22/18 06/22/18 History omega-3 acid ethyl esters [Lovaza] 2 cap PO BID 06/22/18 06/22/18 History prednisone 10 mg PO DAILY 06/22/18 06/22/18 History quetiapine [Seroquel] 300 mg PO HS 06/22/18 06/22/18 History umeclidinium [Incruse Ellipta] 1 inh INHALATION DAILY 06/22/18 06/22/18 History Advance Directives Living Will: No Healthcare Surrogate: No Ethical and Legal Issues: pt minimally responsive today unable to participate in decision making. Sister Tami Machado indicates she had been serving as proxy while he was on hospice services. No advanced directives/ He has 4 adult children, 2 of which he is estranged from. Spoke w all 4 children today- the 2 estranged ones (Son Gil Le, son Eric Le ) indicate they are in agreement with their other 2 siblings and aunt Tami's making the decisions and whatever they decide, they verbalize agree w hospice as well. Physical Exam Vital Signs: Vital Signs - 24 hr 07/03/18 12:00 07/03/18 12:48 07/03/18 16:00 Temperature 97.5 F L 98.2 F Pulse Rate 130 H 59 L 120 H Respiratory Rate 16 24 Blood Pressure 146/67 H 150/91 H Pulse Oximetry 100 100 07/03/18 20:05 07/03/18 20:38 07/03/18 20:48 Temperature 98.3 F Pulse Rate 119 H 104 H Respiratory Rate 26 H 18 Blood Pressure 101/58 L Pulse Oximetry 95 07/03/18 23:50 07/04/18 00:00 07/04/18 02:15 Temperature 98.2 F Pulse Rate 121 H 120 H Respiratory Rate 21 Blood Pressure 92/54 L 78/31 L Pulse Oximetry 100 99 07/04/18 02:16 07/04/18 02:17 07/04/18 02:20 Temperature Pulse Rate Respiratory Rate Blood Pressure 86/41 L 134/42 L 121/48 L Pulse Oximetry 99 07/04/18 02:25 07/04/18 02:30 07/04/18 02:35 Temperature Pulse Rate 107 H Respiratory Rate Blood Pressure 98/49 L 120/52 L 114/51 L Pulse Oximetry 07/04/18 02:37 07/04/18 02:41 07/04/18 03:51 Temperature Pulse Rate 110 H 105 H Respiratory Rate Blood Pressure 119/55 L 107/53 L Pulse Oximetry 100 07/04/18 04:01 07/04/18 04:03 07/04/18 04:30 Temperature Pulse Rate 104 H 109 H Respiratory Rate 23 26 H Blood Pressure 74/38 L 89/39 L Pulse Oximetry 99 07/04/18 04:34 07/04/18 04:45 07/04/18 05:00 Temperature 96.9 F L Pulse Rate 109 H 100 H 99 H Respiratory Rate 35 H 26 H 16 Blood Pressure 113/56 L 101/51 L 96/45 L Pulse Oximetry 96 97 99 07/04/18 05:15 07/04/18 05:30 07/04/18 05:45 Temperature Pulse Rate 99 H 107 H 102 H Respiratory Rate 16 29 H 24 Blood Pressure 87/51 L 103/51 L 91/52 L Pulse Oximetry 100 100 100 07/04/18 06:00 07/04/18 06:15 07/04/18 06:30 Temperature Pulse Rate 101 H 104 H 100 H Respiratory Rate 29 H 29 H 23 Blood Pressure 93/53 L 131/59 L 116/58 L Pulse Oximetry 99 96 97 07/04/18 06:44 07/04/18 07:00 07/04/18 08:22 Temperature Pulse Rate 99 H 95 H Respiratory Rate 22 15 Blood Pressure 117/58 L 97/53 L Pulse Oximetry 100 100 100 I&O: Intake & Output 07/02/18 07/03/18 07/04/18 07/05/18 06:59 06:59 06:59 06:59 Intake Total 1260 / 1260 670 / 670 2120 / 2120 500 / 500 Output Total 1125 / 1125 1025 / 1025 615 / 615 Balance 135 / 135 -355 / -355 1505 / 1505 500 / 500 Weight 69.2 kg 69 kg 68.5 kg Physical Exam: CONSTITUTIONAL/GENERAL: This is a very pale, minimally responsive male SKIN: No jaundice, rashes, or lesions. Ecchymoses on upper extremities. Skin warm/dry HEAD: Atraumatic. Normocephalic. EYES: Pupils 2mm questionable reaction to light. No scleral icterus. No injection or drainage. Fundi not examined. ENT: Hearing grossly normal. Nose without bleeding or purulent drainage. Throat without visible erythema, exudates, masses, or lesions. NECK: Trachea midline. Supple, nontender. CARDIOVASCULAR: Regular rate and rhythm without murmur heart sounds distant. janet 60. No JVD. Peripheral pulses thready RESPIRATORY/CHEST: Symmetric, unlabored respirations, apneic at times, initially tachypneic. on simple mask. decreased air movement throughout, shallow respiration. +scattered rhonchi. Breath sounds equal bilaterally GASTROINTESTINAL: Abdomen soft,rounded, no apparent tenderness, nondistended. No palpable masses. No guarding. Bowel sounds present. GENITOURINARY: Without palpable bladder distension. MUSCULOSKELETAL: Extremities without clubbing, cyanosis . No joint tenderness or effusion noted. NEUROLOGICAL: nonresponsive to exam. does not arouse/no eye opening. no movement of extremities PSYCHIATRIC:nonresponsive- No obvious anxiety/depression. Diagnostic Tests Laboratory: Laboratory Results - last 72 hr 07/01/18 07/01/18 07/01/18 11:36 16:53 22:48 WBC RBC Hgb Hct MCV MCH MCHC RDW Plt Count MPV Prelim Diff (Auto) Neut % (Auto) Lymph % (Auto) Randall % (Auto) Eos % (Auto) Baso % (Auto) Neut # (Auto) Lymph # (Auto) Randall # (Auto) Eos # (Auto) Baso # (Auto) WBC Differential Seg Neuts % (Manual) Band Neuts % (Manual) Lymphocytes % (Manual) Monocytes % (Manual) Myelocytes % (Man) Abs Neuts (Manual) Differential Comment Platelet Estimate Platelet Morphology Dimorphic RBCs Ovalocytes Acanthocytes (Spur) Keratocytes PT INR APTT Puncture Site Patient Temperature O2 Saturation ABG pH ABG pCO2 ABG pO2 ABG HCO3 ABG O2 Content ABG Base Excess ABG Methemoglobin Shoaib Test Hemoglobin Carboxyhemoglobin O2 Delivery Device Liter Flow Critical Value Sodium Potassium Chloride Carbon Dioxide Anion Gap BUN Creatinine Estimated GFR POC Glucose 135 H 345 H 330 H Random Glucose Lactic Acid Calcium Calcium Adj for Albumin Total Bilirubin AST ALT Alkaline Phosphatase Total Protein Albumin Nasal Screen MRSA (PCR) 07/02/18 07/02/18 07/02/18 03:18 03:51 07:59 WBC RBC Hgb Hct MCV MCH MCHC RDW Plt Count MPV Prelim Diff (Auto) Neut % (Auto) Lymph % (Auto) Randall % (Auto) Eos % (Auto) Baso % (Auto) Neut # (Auto) Lymph # (Auto) Randall # (Auto) Eos # (Auto) Baso # (Auto) WBC Differential Seg Neuts % (Manual) Band Neuts % (Manual) Lymphocytes % (Manual) Monocytes % (Manual) Myelocytes % (Man) Abs Neuts (Manual) Differential Comment Platelet Estimate Platelet Morphology Dimorphic RBCs Ovalocytes Acanthocytes (Spur) Keratocytes PT INR APTT Puncture Site Patient Temperature O2 Saturation ABG pH ABG pCO2 ABG pO2 ABG HCO3 ABG O2 Content ABG Base Excess ABG Methemoglobin Shoaib Test Hemoglobin Carboxyhemoglobin O2 Delivery Device Liter Flow Critical Value Sodium 137 Potassium 4.3 Chloride 100 Carbon Dioxide 34.7 H Anion Gap 2 L BUN 37 H Creatinine 0.59 L Estimated GFR Greater than 89 POC Glucose 233 H 141 H Random Glucose 198 H D Lactic Acid Calcium 7.8 L Calcium Adj for Albumin Total Bilirubin AST ALT Alkaline Phosphatase Total Protein Albumin Nasal Screen MRSA (PCR) 07/02/18 07/02/18 07/02/18 12:01 16:41 21:27 WBC RBC Hgb Hct MCV MCH MCHC RDW Plt Count MPV Prelim Diff (Auto) Neut % (Auto) Lymph % (Auto) Randall % (Auto) Eos % (Auto) Baso % (Auto) Neut # (Auto) Lymph # (Auto) Randall # (Auto) Eos # (Auto) Baso # (Auto) WBC Differential Seg Neuts % (Manual) Band Neuts % (Manual) Lymphocytes % (Manual) Monocytes % (Manual) Myelocytes % (Man) Abs Neuts (Manual) Differential Comment Platelet Estimate Platelet Morphology Dimorphic RBCs Ovalocytes Acanthocytes (Spur) Keratocytes PT INR APTT Puncture Site Patient Temperature O2 Saturation ABG pH ABG pCO2 ABG pO2 ABG HCO3 ABG O2 Content ABG Base Excess ABG Methemoglobin Shoaib Test Hemoglobin Carboxyhemoglobin O2 Delivery Device Liter Flow Critical Value Sodium Potassium Chloride Carbon Dioxide Anion Gap BUN Creatinine Estimated GFR POC Glucose 190 H 230 H 246 H Random Glucose Lactic Acid Calcium Calcium Adj for Albumin Total Bilirubin AST ALT Alkaline Phosphatase Total Protein Albumin Nasal Screen MRSA (PCR) 07/03/18 07/03/18 07/03/18 03:02 09:01 12:25 WBC RBC Hgb Hct MCV MCH MCHC RDW Plt Count MPV Prelim Diff (Auto) Neut % (Auto) Lymph % (Auto) Randall % (Auto) Eos % (Auto) Baso % (Auto) Neut # (Auto) Lymph # (Auto) Randall # (Auto) Eos # (Auto) Baso # (Auto) WBC Differential Seg Neuts % (Manual) Band Neuts % (Manual) Lymphocytes % (Manual) Monocytes % (Manual) Myelocytes % (Man) Abs Neuts (Manual) Differential Comment Platelet Estimate Platelet Morphology Dimorphic RBCs Ovalocytes Acanthocytes (Spur) Keratocytes PT INR APTT Puncture Site Patient Temperature O2 Saturation ABG pH ABG pCO2 ABG pO2 ABG HCO3 ABG O2 Content ABG Base Excess ABG Methemoglobin Shoaib Test Hemoglobin Carboxyhemoglobin O2 Delivery Device Liter Flow Critical Value Sodium Potassium Chloride Carbon Dioxide Anion Gap BUN Creatinine Estimated GFR POC Glucose 205 H 179 H 317 H Random Glucose Lactic Acid Calcium Calcium Adj for Albumin Total Bilirubin AST ALT Alkaline Phosphatase Total Protein Albumin Nasal Screen MRSA (PCR) 07/03/18 07/03/18 07/04/18 17:37 20:41 02:19 WBC RBC Hgb Hct MCV MCH MCHC RDW Plt Count MPV Prelim Diff (Auto) Neut % (Auto) Lymph % (Auto) Randall % (Auto) Eos % (Auto) Baso % (Auto) Neut # (Auto) Lymph # (Auto) Randall # (Auto) Eos # (Auto) Baso # (Auto) WBC Differential Seg Neuts % (Manual) Band Neuts % (Manual) Lymphocytes % (Manual) Monocytes % (Manual) Myelocytes % (Man) Abs Neuts (Manual) Differential Comment Platelet Estimate Platelet Morphology Dimorphic RBCs Ovalocytes Acanthocytes (Spur) Keratocytes PT INR APTT Puncture Site Patient Temperature O2 Saturation ABG pH ABG pCO2 ABG pO2 ABG HCO3 ABG O2 Content ABG Base Excess ABG Methemoglobin Shoaib Test Hemoglobin Carboxyhemoglobin O2 Delivery Device Liter Flow Critical Value Sodium Potassium Chloride Carbon Dioxide Anion Gap BUN Creatinine Estimated GFR POC Glucose 356 H 313 H 390 H Random Glucose Lactic Acid Calcium Calcium Adj for Albumin Total Bilirubin AST ALT Alkaline Phosphatase Total Protein Albumin Nasal Screen MRSA (PCR) 07/04/18 07/04/18 07/04/18 02:35 02:57 02:57 WBC 9.9 RBC 1.94 L Hgb 5.9 L* Hct 17.0 L* MCV 87.7 MCH 30.3 MCHC 34.5 RDW 18.2 H Plt Count 135 L MPV 7.9 Prelim Diff (Auto) Slide review pending Neut % (Auto) 91.7 H Lymph % (Auto) 4.9 L Randall % (Auto) 3.3 Eos % (Auto) 0.0 Baso % (Auto) 0.1 Neut # (Auto) 9.1 H Lymph # (Auto) 0.5 L Randall # (Auto) 0.3 Eos # (Auto) 0.0 Baso # (Auto) 0.0 WBC Differential Manual diff final Seg Neuts % (Manual) 95 H Band Neuts % (Manual) 1 Lymphocytes % (Manual) 2 L Monocytes % (Manual) 1 Myelocytes % (Man) 1 H Abs Neuts (Manual) 9.6 H Differential Comment . Platelet Estimate Low L Platelet Morphology Normal Dimorphic RBCs Present H Ovalocytes 1+ H Acanthocytes (Spur) Occ H Keratocytes Occ H PT INR APTT Puncture Site Right radial Patient Temperature 98.6 O2 Saturation 95 ABG pH 7.32 L ABG pCO2 44 H ABG pO2 124 H ABG HCO3 22 ABG O2 Content 8.3 L ABG Base Excess -2.7 L ABG Methemoglobin 1.7 Shoaib Test Present Hemoglobin 6.0 L* Carboxyhemoglobin 1.7 O2 Delivery Device Nasal cannula Liter Flow 3.00 Critical Value Yes Sodium 135 L Potassium 6.0 H D Chloride 100 Carbon Dioxide 25.6 D Anion Gap 9 BUN 94 H Creatinine 1.29 Estimated GFR 55 L POC Glucose Random Glucose 309 H D Lactic Acid Calcium 6.8 L* D Calcium Adj for Albumin 8.7 Total Bilirubin 0.3 AST 23 ALT 33 Alkaline Phosphatase 34 L Total Protein 3.7 L Albumin 1.6 L Nasal Screen MRSA (PCR) 07/04/18 07/04/18 07/04/18 02:57 02:57 04:30 WBC RBC Hgb Hct MCV MCH MCHC RDW Plt Count MPV Prelim Diff (Auto) Neut % (Auto) Lymph % (Auto) Randall % (Auto) Eos % (Auto) Baso % (Auto) Neut # (Auto) Lymph # (Auto) Randall # (Auto) Eos # (Auto) Baso # (Auto) WBC Differential Seg Neuts % (Manual) Band Neuts % (Manual) Lymphocytes % (Manual) Monocytes % (Manual) Myelocytes % (Man) Abs Neuts (Manual) Differential Comment Platelet Estimate Platelet Morphology Dimorphic RBCs Ovalocytes Acanthocytes (Spur) Keratocytes PT 16.4 H INR 1.6 APTT 38.8 H Puncture Site Patient Temperature O2 Saturation ABG pH ABG pCO2 ABG pO2 ABG HCO3 ABG O2 Content ABG Base Excess ABG Methemoglobin Shoaib Test Hemoglobin Carboxyhemoglobin O2 Delivery Device Liter Flow Critical Value Sodium Potassium Chloride Carbon Dioxide Anion Gap BUN Creatinine Estimated GFR POC Glucose Random Glucose Lactic Acid 4.9 H* Calcium Calcium Adj for Albumin Total Bilirubin AST ALT Alkaline Phosphatase Total Protein Albumin Nasal Screen MRSA (PCR) Mrsa not detected 07/04/18 08:54 WBC RBC Hgb Hct MCV MCH MCHC RDW Plt Count MPV Prelim Diff (Auto) Neut % (Auto) Lymph % (Auto) Randall % (Auto) Eos % (Auto) Baso % (Auto) Neut # (Auto) Lymph # (Auto) Randall # (Auto) Eos # (Auto) Baso # (Auto) WBC Differential Seg Neuts % (Manual) Band Neuts % (Manual) Lymphocytes % (Manual) Monocytes % (Manual) Myelocytes % (Man) Abs Neuts (Manual) Differential Comment Platelet Estimate Platelet Morphology Dimorphic RBCs Ovalocytes Acanthocytes (Spur) Keratocytes PT INR APTT Puncture Site Patient Temperature O2 Saturation ABG pH ABG pCO2 ABG pO2 ABG HCO3 ABG O2 Content ABG Base Excess ABG Methemoglobin Shoaib Test Hemoglobin Carboxyhemoglobin O2 Delivery Device Liter Flow Critical Value Sodium Potassium Chloride Carbon Dioxide Anion Gap BUN Creatinine Estimated GFR POC Glucose 317 H Random Glucose Lactic Acid Calcium Calcium Adj for Albumin Total Bilirubin AST ALT Alkaline Phosphatase Total Protein Albumin Nasal Screen MRSA (PCR) Result Diagrams: 07/04/18 02:57 07/04/18 02:57 Microbiology: Microbiology 07/02/18 13:00 Gram Stain - Final Sputum - Expectorated Sputum Sputum Culture - Preliminary gram negative rods 07/02/18 09:37 Aerobic Blood Culture - Preliminary Blood - Peripheral No growth in 1 day Anaerobic Blood Culture - Preliminary No growth in 1 day 07/02/18 09:40 Aerobic Blood Culture - Preliminary Blood - Peripheral No growth in 1 day Anaerobic Blood Culture - Preliminary No growth in 1 day 07/02/18 13:00 Streptococcus pneumoniae Antigen (M - Final Urine - Clean Catch Urine Presumptive negative for streptococcus pneumoniae antigen, suggesting no current or recent infection. Infection due to Streptococcus pneumoniae cannot be ruled out since the antigen present in the sample may be below the detection limit of the test. Patient/Family Conference Family Conference Location: Bedside Issues Discussed: Met with adult children, sister Tami discussion included: * Palliative care role, purpose, approach * Additional medical, psychosocial, and spiritual history * Patients general health leading up to the current hospitalization * family understanding of the current medical problems * family understanding of prognosis * Patients goals of care as best understood from advance directives and/or conversations and/or values-family requests resumption of hospice services based on his known wishes * Legal decision makers per [place] statutes * anticipatory guidance provided * Questions answered to the best of my ability * Palliative care contact information provided See HPI for additional details Assessment and Plan Pertinent Non-Medical Issues: Psychosocial: 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 Former smoker. Recently lived with his daughter , nephew and nieces. Has 4 children, 2 of which is estranged from. Has previously been on hospice services. Spiritual:youth officer offered family declined Legal:pt minimally responsive today unable to participate in decision making. Sister Tami Machado indicates she had been serving as proxy while he was on hospice services. No advanced directives/ He has 4 adult children, 2 of which he is estranged from. Spoke w all 4 children today- the 2 estranged ones (Son Gil Le, son Eric Le Jr) indicate they are in agreement with their other 2 siblings and aunt Tami's making the decisions and whatever they decide, they verbalize agree w hospice as well. Ethical issues impacting care: no ethical issues identified. Important Contacts: sister Tami Machado Son Jovonpeggy Le Son Gil Le Son Eric Le Jr Daughter Christina Lyle Prognosis: this pt was initially admitted for SOB. He has underlying history of end stage COPD. He has had new findings of lung nodule and PE during acute hospital course. He has previously been on hospice services. he is appropriate for hospice, has terminal/end stage conditions. Code Status: No Code DNR Plan: Legal decision maker:pt minimally responsive today unable to participate in decision making. Sister Tami Machado indicates she had been serving as proxy while he was on hospice services. No advanced directives/ He has 4 adult children, 2 of which he is estranged from. Spoke w all 4 children today- the 2 estranged ones (Son Gil Le, son Eric Le ) indicate they are in agreement with their other 2 siblings and aunt Tami's making the decisions and whatever they decide, they verbalize agree w hospice as well. Goals: Goals are for comfort at end of life, family requests patient have no suffering. Initially requested resumption of hospice services in [facility], however pt is deteriorating and not expected to make transfer, request comfort here in hospital setting. CODE STATUS: DNR SYMPTOMS: --dyspnea/tachypnea-ongoing shortness of breath during acute hospitalization. Findings of PE, as well as lung nodule. Underlying history of end-stage COPD. + tachypnea today, desaturation . 1400 Comfort orders entered for tachypnea/dyspnea --pain/anxiety: pt minimally responsive. Some anxiety/tachypnea. Potential source of pain includes bedbound status.1400 PRNs for comfort entered upon request for hospice, comfort measures. Palliative care will continue to follow during hospital course as condition evolves, to assist patient/decision-maker with understanding of medical conditions, weighing benefits/burdens of treatment options, for clarification of goals of treatment. Additionally will assist with any symptoms of palliative concern Appreciation Thank you for the opportunity to participate in the care of Eric Le. Attestation Attestation: To help prompt me to consider important information that might be impacting today's encounter and assessment, information from prior notes written by myself or my colleagues may have been "brought forward" into today's note. My signature on this note, however, is an attestation that I personally performed the exam, history, and/or decision-making noted today, and, unless otherwise indicated, the interactions with patient, family, and staff as well as the review of records all occurred today. I also attest that the listed assessment and stated plan reflect my best clinical judgment today based on the combination of historical information, prior notes, and today's exam/ interactions. When time spent is documented, it refers only to time spent today by the signer, or if indicated, combined time spent today by collaborating physician/nurse practitioner.
[2018-07-04] MEDS ORDERED: Morphine Inj 4 MG/ML Vial IV.PUSH PRN ×2 (14:13→14:15)
[2018-07-04 14:43] VITALS: BP 63/36; PULSE 79; RESP 13; O2SAT 95
[2018-07-04] MEDS ORDERED: Phenylephrine Inj 40 MG in Dextrose 5% in Water Inj 496 ML IV.CONT PRN ×2 (15:11)
--- NOTE | 2018-07-04 16:51 | ECG ---
Date Performed: 07/04/2018 Time Performed: 02:28:18 PTAGE: 72 years EKG: Sinus tachycardia. Incomplete RBBB Anterior T wave changes are nonspecific Generalized low QRS voltages Borderline ECG PREVIOUS TRACING :06/22/2018 @17.42 Since the previous tracing, no significant change noted DOCTOR: Romie Woods Interpretating Date/Time 07/04/2018 16:49:33
--- NOTE | 2018-07-04 17:30 | P.DN ---
- Provider Primary care physician: UNKNOWN Admitting clinician: Bj Paz Attending physician on admission: Bj Paz Consults: 06/30/18 17:51 Consult to Pulmonology Routine Consulting Provider: Marco A Victor Reason for Consultation: pt with h/o COPD on home O2,has been on treatment for exacerbation on nebs, steroids and received antibiotics. had improved,but reports worsening symptoms especially on exertion. kindly evaluate and advise. thank you. Notified:: Service Spoke with:: Joyce Date Notified:: 06/30/18 Time Notified:: 17:58 Ordering Provider: DELIO 07/04/18 04:10 Consult to [employer]cher [employer] Stat Consulting Provider: Matthias Infante For STAT consult, spoke directly to:: Dr. Infante Reason for Consultation: symptomatic anemia and hypotension - refusing blood products Notified:: Service Spoke with:: JOSE Date Notified:: 07/04/18 Time Notified:: 04:58 Comments:: FINALLY ABLE TO CONFIRM [facility] [employer] [facility] SPOKE WITH DR INFANTE - SPOKE DIRECTLY WITH LATOYA WELLS THAT SHE SPOKE WITH DR INFANTE Ordering Provider: JANETTE 07/04/18 10:23 Consult to Palliative Care Routine Consulting Provider: Bob Weaver Reason for Consultation: Patient previously on home hospice and did admitted for severe anemia hypoxemia, now with pulmonary embolus POA requesting to speak with you regarding define goals of care. Patient severely anemic, Jehovah witness no transfusions Notified:: Service Spoke with:: Adriana Date Notified:: 07/04/18 Time Notified:: 10:31 Ordering Provider: LYNDA 06/22/18 04:56 Consult to Cardiology Routine Consulting Provider: Jimbo Hill Does the patient have a [employer]anger who follows them?: No Preferred Rn Care Manager:: [employer] Worker Physician Reason for Consultation: new onset a fib Notified:: Service Spoke with:: Katie Date Notified:: 06/22/18 Time Notified:: 05:14 Ordering Provider: PEPITO 06/24/18 10:14 HUB Only Consult Order Routine [facility] Pronouncing clinician: Bee Martinez - Admitting Diagnosis (1) Pulmonary embolism (2) COPD (chronic obstructive pulmonary disease) (3) Pneumonia - Date and Time Date of admission: 06/22/18 05:51 Date of : 07/04/18 Time of : 14:44 - Summary Brief History: 72-year-old man, claims to be JW, with past medical history of diabetes type 2, COPD and a current resident of a local snf facility was brought to the hospital for evaluation of worsening symptoms of shortness of breath and lightheadedness neck. While in the ED, patient was found to have sustained heart rate of over 100 for which cardiology was consulted. Patient was also started on Cardizem drip. CTA of the pulmonary arteries shows right pulmonary embolism. The patient was started on anticoagulation with full-dose Lovenox and transitioned to Eliquis last night. He has also been followed by pulmonologists. Today early in the morning he was found to be pale, diaphoretic and hypotensive with hemoglobin level of 5.9. The patient is refusing blood product transfusion due to his tenriism purposes, however he agreed with albumin infusion. His blood pressure somehow improves with IV fluid hydration and IV albumin. Result Diagrams: 07/04/18 02:57 07/04/18 02:57 Significant Findings: Abnormal Lab Results 07/03/18 07/03/18 07/04/18 17:37 20:41 02:19 WBC RBC Hgb Hct MCV MCH MCHC RDW Plt Count MPV Prelim Diff (Auto) Neut % (Auto) Lymph % (Auto) Davie % (Auto) Eos % (Auto) Baso % (Auto) Neut # (Auto) Lymph # (Auto) Davie # (Auto) Eos # (Auto) Baso # (Auto) WBC Differential Seg Neuts % (Manual) Band Neuts % (Manual) Lymphocytes % (Manual) Monocytes % (Manual) Myelocytes % (Man) Abs Neuts (Manual) Differential Comment Platelet Estimate Platelet Morphology Dimorphic RBCs Ovalocytes Acanthocytes (Spur) Keratocytes PT INR APTT Puncture Site Patient Temperature O2 Saturation ABG pH ABG pCO2 ABG pO2 ABG HCO3 ABG O2 Content ABG Base Excess ABG Methemoglobin Shoaib Test Hemoglobin Carboxyhemoglobin O2 Delivery Device Liter Flow Critical Value Sodium Potassium Chloride Carbon Dioxide Anion Gap BUN Creatinine Estimated GFR POC Glucose 356 H 313 H 390 H Random Glucose Lactic Acid Calcium Calcium Adj for Albumin Total Bilirubin AST ALT Alkaline Phosphatase Total Protein Albumin Nasal Screen MRSA (PCR) 07/04/18 07/04/18 07/04/18 02:35 02:57 02:57 WBC 9.9 RBC 1.94 L Hgb 5.9 L* Hct 17.0 L* MCV 87.7 MCH 30.3 MCHC 34.5 RDW 18.2 H Plt Count 135 L MPV 7.9 Prelim Diff (Auto) Slide review pending Neut % (Auto) 91.7 H Lymph % (Auto) 4.9 L Davie % (Auto) 3.3 Eos % (Auto) 0.0 Baso % (Auto) 0.1 Neut # (Auto) 9.1 H Lymph # (Auto) 0.5 L Davie # (Auto) 0.3 Eos # (Auto) 0.0 Baso # (Auto) 0.0 WBC Differential Manual diff final Seg Neuts % (Manual) 95 H Band Neuts % (Manual) 1 Lymphocytes % (Manual) 2 L Monocytes % (Manual) 1 Myelocytes % (Man) 1 H Abs Neuts (Manual) 9.6 H Differential Comment . Platelet Estimate Low L Platelet Morphology Normal Dimorphic RBCs Present H Ovalocytes 1+ H Acanthocytes (Spur) Occ H Keratocytes Occ H PT INR APTT Puncture Site Right radial Patient Temperature 98.6 O2 Saturation 95 ABG pH 7.32 L ABG pCO2 44 H ABG pO2 124 H ABG HCO3 22 ABG O2 Content 8.3 L ABG Base Excess -2.7 L ABG Methemoglobin 1.7 Shoaib Test Present Hemoglobin 6.0 L* Carboxyhemoglobin 1.7 O2 Delivery Device Nasal cannula Liter Flow 3.00 Critical Value Yes Sodium 135 L Potassium 6.0 H D Chloride 100 Carbon Dioxide 25.6 D Anion Gap 9 BUN 94 H Creatinine 1.29 Estimated GFR 55 L POC Glucose Random Glucose 309 H D Lactic Acid Calcium 6.8 L* D Calcium Adj for Albumin 8.7 Total Bilirubin 0.3 AST 23 ALT 33 Alkaline Phosphatase 34 L Total Protein 3.7 L Albumin 1.6 L Nasal Screen MRSA (PCR) 07/04/18 07/04/18 07/04/18 02:57 02:57 04:30 WBC RBC Hgb Hct MCV MCH MCHC RDW Plt Count MPV Prelim Diff (Auto) Neut % (Auto) Lymph % (Auto) Davie % (Auto) Eos % (Auto) Baso % (Auto) Neut # (Auto) Lymph # (Auto) Davie # (Auto) Eos # (Auto) Baso # (Auto) WBC Differential Seg Neuts % (Manual) Band Neuts % (Manual) Lymphocytes % (Manual) Monocytes % (Manual) Myelocytes % (Man) Abs Neuts (Manual) Differential Comment Platelet Estimate Platelet Morphology Dimorphic RBCs Ovalocytes Acanthocytes (Spur) Keratocytes PT 16.4 H INR 1.6 APTT 38.8 H Puncture Site Patient Temperature O2 Saturation ABG pH ABG pCO2 ABG pO2 ABG HCO3 ABG O2 Content ABG Base Excess ABG Methemoglobin Shoaib Test Hemoglobin Carboxyhemoglobin O2 Delivery Device Liter Flow Critical Value Sodium Potassium Chloride Carbon Dioxide Anion Gap BUN Creatinine Estimated GFR POC Glucose Random Glucose Lactic Acid 4.9 H* Calcium Calcium Adj for Albumin Total Bilirubin AST ALT Alkaline Phosphatase Total Protein Albumin Nasal Screen MRSA (PCR) Mrsa not detected 07/04/18 07/04/18 08:54 13:23 WBC RBC Hgb Hct MCV MCH MCHC RDW Plt Count MPV Prelim Diff (Auto) Neut % (Auto) Lymph % (Auto) Davie % (Auto) Eos % (Auto) Baso % (Auto) Neut # (Auto) Lymph # (Auto) Davie # (Auto) Eos # (Auto) Baso # (Auto) WBC Differential Seg Neuts % (Manual) Band Neuts % (Manual) Lymphocytes % (Manual) Monocytes % (Manual) Myelocytes % (Man) Abs Neuts (Manual) Differential Comment Platelet Estimate Platelet Morphology Dimorphic RBCs Ovalocytes Acanthocytes (Spur) Keratocytes PT INR APTT Puncture Site Patient Temperature O2 Saturation ABG pH ABG pCO2 ABG pO2 ABG HCO3 ABG O2 Content ABG Base Excess ABG Methemoglobin Shoaib Test Hemoglobin Carboxyhemoglobin O2 Delivery Device Liter Flow Critical Value Sodium Potassium Chloride Carbon Dioxide Anion Gap BUN Creatinine Estimated GFR POC Glucose 317 H Random Glucose Lactic Acid 7.4 H* Calcium Calcium Adj for Albumin Total Bilirubin AST ALT Alkaline Phosphatase Total Protein Albumin Nasal Screen MRSA (PCR) Hospital Course: 07/04: Sister CHAD, sister at bedside. Providing more information on the patient. The patient [facility]. Inquiry at this point regarding resuming home hospice and family requesting a palliative care consult. The patient upon my arrival appears extremely lethargic Seroquel has been held morphine and scheduled Ativan and also remains on hold. Lactic acid significantly elevated, 4.5 however WBC count 9.9. The patient has been on steroids. The patient continues on Zosyn at this time repeat lactic acid pending. Sputum culture revealed gram-negative rods, will consult ID. Hemoglobin noted to be 5.6 patient due to tenriism reasons does not want blood transfusion at this time, remains tachypneic, but normotensive. Hematology has been consulted. Extensive discussion with patient's POA sister Ms. Le and patient's 2 children all at bedside. They are requesting possible transport to [facility] in [place] at this time. Case management has been consulted awaiting information regarding placement from [facility]. The patient continues to be tachypneic 30's, but normotensive tachycardic heart rate 113. The patient's code status was changed to DNR/DNI at request of the patient's POA , sister and 2 children. 1351-The patient was noted to hypotensive SBP's 60's. I discussed with family and their desire is to make patient comfortable, and conservative measures only- no vasopressor support.They were informed that the patient is too unstable for travel to [facility]. I discussed with case management, patient unable to transport.
[2018-07-05] MEDS ORDERED: Chlorhexidine Gluconate 2% 1 Pack (2 Cloths) TOPICAL PRN (04:00)
[2018-07-05] MEDS ORDERED: Chlorhexidine Gluconate 2% 1 Pack (2 Cloths) TOPICAL SCH (04:00)
== END 2018-07-04 14:44 | disposition expired | DRG 190 ==
LOC: NEPC 00:53 → NEDA 05:51 → HCIS 06:56 → HCIN 06-25 10:51 → HIMC 07-04 04:25
PROVIDERS: ADMIT Internal Medicine Critical Care Medicine; ATTEND Internal Medicine Critical Care Medicine
CPT/HCPCS: 36600; 70450; 71010; 71045; 71260; 71275; 80048; 80053; 82550; 82805; 82948; 82962; 83036; 83520; 83605; 83735; 83880; 84484; 85025; 85027; 85610; 85730; 86713; 87040; 87070; 87077; 87186; 87205; 87449; 87641; 90774; 90784; 93005; 93306; 94150; 94640; 94664; 94665; 94667; 94668; 96374; 97110; 97116; 97161; 97530; 99285; C8952; C9113; J1650; J1815; J1940; J2060; J2270; J2370; J2543; J2920; J7030; J7040; J7506; J7512; P9045; Q9967